=== PATIENT | male | born 1980 | race African-American/Black ===

== ENCOUNTER 2016-09-07 22:21 | Inpatient (IN) ==
[2016-09-08 00:05] LABS: Basophils % 0.5 %; Eosinophils # 0.3 K/mcL (0.0-0.6); Eosinophils % 3.6 %; Hemoglobin 13.4 g/dL (12.9-16.9); Immature Granulocytes % 0.4 % (0-4); Lymphocytes # 1.3 K/mcL (0.6-4.6); Lymphocytes % 15.8 %; Mean Corpuscular HGB Conc 32.7 g/dL (31.6-35.5); Mean Corpuscular Hemoglobin 28.8 pg (28.0-33.3); Mean Corpuscular Volume 88.2 fL (83.0-100.0); Mean Platelet Volume 9.7 fL (9.4-12.4); Monocytes # 0.9 K/mcL (0.0-1.3); Monocytes % 11.2 %; Neutrophils # 5.5 K/mcL (1.6-8.9); Platelet Count 204 K/mcL (140-400); Red Blood Count 4.65 M/mcL (4.19-5.50); Red Cell Distribution Width 12.2 % (11.5-14.5); Segmented Neutrophils % 68.5 %
[2016-09-08 00:13] LABS: INR 1.1; Prothrombin Time 11.9 Seconds (9.4-12.1)
[2016-09-08 00:28] LABS: Alanine Aminotransferase 33 Units/L (0-55); Albumin 3.5 g/dL (3.5-5.0); Albumin/Globulin Ratio 0.9 (1.1-2.2); Alkaline Phosphatase 78 Units/L (38-126); Aspartate Amino Transferase 22 Units/L (5-34); BUN/Creatinine Ratio 14 (6-26); Bilirubin,Total 0.6 mg/dL (0.2-1.2); Blood Urea Nitrogen 15 mg/dL (8-26); Calcium 9.5 mg/dL (8.6-10.8); Carbon Dioxide 28 mEq/L (19-29); Chloride 104 mEq/L (98-109); Globulin 3.7 g/dL (2.4-3.5); Glucose 93 mg/dL (70-99); Osmolality,Calculated 291 (280-300); Potassium 3.6 mEq/L (3.5-4.5); Sodium 140 mEq/L (136-145); Total Protein 7.2 g/dL (6.0-8.3); eGFR For African Americans > 60 (> 60); eGFR For Non-African Americans > 60 (> 60)
[2016-09-08] MEDS ORDERED: 0.9 % Sodium Chloride 1,000 ML IVC ONE (01:26)
[2016-09-08] MEDS ORDERED: Ipratropium/Albuterol Neb 3 ML IH ONE (01:27)
[2016-09-08] MEDS ORDERED: methylPREDNISolone 125 MG/2 ML VIAL IVP ONE (01:27)
[2016-09-08] MEDS ORDERED: GuaiFENesin/Codeine Oral Soln 5 ML UDC PO ONE (01:31)
[2016-09-08] MEDS ORDERED: Ampicillin/Sulbactam 3,000 MG in 0.9 % Sodium Chloride Mini Bag 100 ML IVPB ONE (03:41)
[2016-09-08] MEDS ORDERED: Vancomycin 1,000 MG in D5% in Water 250 ML IVPB ONE (03:41)
--- NOTE | 2016-09-08 03:43 | Emergency Department Note ---
Disposition Clinical Impression: Cough with hemoptysis, Cavitary lesion of lung, Multiple lung nodules on CT, Abnormal EKG Disposition: Admitted As Inpatient Condition: Undetermined General Adult HPI - General Chief complaint: ED Shortness of Breath/Dyspnea Stated complaint: coughing up blood, [place] Time Seen by Provider: 09/08/16 00:38 Source: patient Mode of arrival: private vehicle Limitations: no limitations Nursing Notes Reviewed: Yes Vital Signs Reviewed: Yes - History of Present Illness Pt Subjective Complaint: coughing for a week with hemoptysis Onset (ago): week(s) Location: chest ("soreness in left upper chest last week for a day or two, no pain now") Radiation: non-radiation Pain Severity: moderate (none today) Pain Scale: 0 Quality: aching Consistency: intermittent, now resolved Improves with: nothing Worsens with: other ("coughing hard makes everything hurt") Associated symptoms: Reports: cough, malaise, shortness of breath ("really bad last week, better this week"). Denies: confusion, diaphoresis, fever/chills, headaches, loss of appetite, nausea/vomiting, rash, seizure Treatments Prior to Arrival: none - Related Data Allergies Allergy/AdvReac Type Severity Reaction Status Date / Time bismuth subsalicylate Allergy Hives Verified 09/07/16 23:08 [From Pepto-Bismol] All systems ED: reviewed and negative except as stated. Constitutional: Reports: chills. Denies: fever, weakness, weight change, night sweats Eyes: Denies: eye discharge ENT ED: Denies: ear pain, throat pain, congestion, dysphagia Cardiovascular: Reports: as per HPI, chest pain. Denies: palpitations, dyspnea on exertion, orthopnea, edema, syncope Respiratory: Reports: as per HPI, cough, dyspnea, wheezes, hemoptysis. Denies: stridor, sputum production Gastrointestinal: Denies: abdominal pain, nausea, vomiting Musculoskeletal: Reports: arthralgia ("sometimes my bones ache"). Denies: back pain, neck pain, joint swelling Integumentary: Denies: rash, lesions, pruritus Neurological: Denies: headache, weakness, confusion, abnormal gait, vertigo Endocrine: Reports: fatigue Hematological/Lymphatic: Denies: easy bleeding, easy bruising, lymphadenopathy Past Medical History - Past Medical History Attestation: Yes The following information was validated with the patient. Source: patient Medical history: Reports: asthma, other Surgical history: Reports: non-contributory Psychiatric history: Reports: no psych history - Social History Smoking Status: Former smoker Smokeless Tobacco Status: No Alcohol use: Reports: none, occasionally Drug use: Reports: none Physical Exam - General Limitations: no limitations General appearance: alert, in no apparent distress - Head Head exam: atraumatic, normocephalic, normal inspection - Eye Eye exam: Present: normal appearance, PERRL, EOMI. Absent: scleral icterus, conjunctival injection, periorbital swelling - ENT ENT exam: normal exam, normal oropharynx, mucous membranes moist - Neck Neck exam: Present: normal inspection, full ROM, trachea midline. Absent: tenderness, meningismus, lymphadenopathy - Chest Chest inspection: Present: normal inspection, symmetric chest wall rise. Absent : tenderness - Respiratory Respiratory exam: Present: wheezes. Absent: respiratory distress, stridor, accessory muscle use, prolonged expiratory phase - Expanded Respiratory Exam Location: wheezes: Left, Right, Upper - Cardiovascular Cardiovascular exam: Present: regular rate, normal rhythm, normal heart sounds - Extremities Exam Extremities exam: Present: normal inspection, full ROM, normal capillary refill. Absent: pedal edema - Back Exam Back exam: Present: normal inspection, full ROM. Absent: tenderness - Neurological Exam Neurological exam: Present: alert, oriented X3, CN II-XII intact, normal gait - Psychiatric Psychiatric exam: Present: normal affect, normal mood - Skin Skin exam: Present: warm, dry, intact, normal color Course Course Narrative: Patient presents from home for evaluation ofcoughing up blood for a week. He describes having some left-sided upper chest pain last week and has had a dry hacking cough with episodes of hemoptysis. He states that it feels like it is getting worse, but the pain has not returned. He describes generalized arthralgias and chills but denies fever, vomiting, dizziness, vertigo, palpitations. He has had dyspnea but has a history of asthma. He states that the dyspnea was much worse last week and it too has gotten better. He denies recent foreign travel, or domestic travel, denies recent surgery or prolonged sedentary periods. He denies personal or family history of DVT or PE. 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 He denies recent weight loss or night sweats. On exam, he has a dry hacking bronchospastic cough and did have an episode of hemoptysis during the exam. It was approximately 2 mL's of bloody sputum. He does have expiratory wheezes bilaterally, but no other adventitious breath sounds. He is not tachypneic or tachycardic and has no retractions. Labs were ordered from the triage area per nursing protocol. These show an elevated d-dimer. Given patient's recent chest pain and this lab finding, I consulted with the attending. The patient was seen by Dr. Emre Gonzáles as well. She agrees with the plan to do CTA. Patient received DuoNeb treatments, steroids and cough medicine which helped with his symptoms. His wheezes cleared. His cough was suppressed. EKG shows sinus rhythm with lateral T-wave inversions. We do not have an old EKG to compare this to. Chest x-ray was read by the radiologist as normal. CTA was read as negative for acute pulmonary emboli, positive for multiple pulmonary nodules, including one in the left upper lung which is cavitary. Suspicious for septic emboli. Patient was placed on isolation precautions and a mask was applied. He and his significant other were updated on the findings. Blood cultures were obtained as well as sputum culture. Unasyn and vancomycin were ordered. Hospitalist was paged for admission. We discussed the case and he recommended that the Unasyn be changed to Zosyn. This change was made. However, the patient was already receiving the Unasyn, so this infusion was not stopped. Patient is admitted in stable condition. He is hemodynamically stable. His H&H are normal. He is not tachycardic or hypotensive. Vital Signs Temperature 99.0 F 09/07/16 23:08 Pulse Rate 87 09/07/16 23:08 Respiratory Rate 20 09/07/16 23:08 Blood Pressure 169/91 09/07/16 23:08 O2 Sat by Pulse Oximetry 96 09/07/16 23:08 Temperature 99.0 F 09/07/16 23:08 Pulse Rate 94 09/08/16 03:57 Respiratory Rate 18 09/08/16 03:57 Blood Pressure 162/86 09/08/16 03:57 O2 Sat by Pulse Oximetry 96 09/08/16 03:57 Oxygen Delivery Oxygen Delivery Room Air Medical Decision Making - Medical Records Medical records reviewed: Yes I reviewed the patient's medical records. - Lab Data Lab results reviewed: Yes I reviewed the patient's lab results. Lab results narrative: Laboratory Last Values WBC 8.1 K/mcL (4.3-11.1) 09/07/16 23:57 RBC 4.65 M/mcL (4.19-5.50) 09/07/16 23:57 Hgb 13.4 g/dL (12.9-16.9) 09/07/16 23:57 Hct 41.0 % (37.5-50.1) 09/07/16 23:57 MCV 88.2 fL (83.0-100.0) 09/07/16 23:57 MCH 28.8 pg (28.0-33.3) 09/07/16 23:57 MCHC 32.7 g/dL (31.6-35.5) 09/07/16 23:57 RDW 12.2 % (11.5-14.5) 09/07/16 23:57 Plt Count 204 K/mcL (140-400) 09/07/16 23:57 MPV 9.7 fL (9.4-12.4) 09/07/16 23:57 Immature Gran % 0.4 % (0-4) 09/07/16 23:57 Seg Neutrophils % 68.5 % 09/07/16 23:57 Lymphocytes % 15.8 % 09/07/16 23:57 Monocytes % 11.2 % 09/07/16 23:57 Eosinophils % 3.6 % 09/07/16 23:57 Basophils % 0.5 % 09/07/16 23:57 Neutrophils # 5.5 K/mcL (1.6-8.9) 09/07/16 23:57 Lymphocytes # 1.3 K/mcL (0.6-4.6) 09/07/16 23:57 Monocytes # 0.9 K/mcL (0.0-1.3) 09/07/16 23:57 Eosinophils # 0.3 K/mcL (0.0-0.6) 09/07/16 23:57 Basophils # 0.0 K/mcL (0.0-0.2) 09/07/16 23:57 PT 11.9 Seconds (9.4-12.1) 09/07/16 23:57 INR 1.1 09/07/16 23:57 APTT 28.0 Seconds (26.0-36.0) 09/07/16 23:57 D-Dimer 698 ng/mLFEU (0-500) H 09/07/16 23:57 Sodium 140 mEq/L (136-145) 09/07/16 23:57 Potassium 3.6 mEq/L (3.5-4.5) 09/07/16 23:57 Chloride 104 mEq/L (98-109) 09/07/16 23:57 Carbon Dioxide 28 mEq/L (19-29) 09/07/16 23:57 BUN 15 mg/dL (8-26) 09/07/16 23:57 Creatinine 1.04 mg/dL (0.72-1.25) 09/07/16 23:57 Est GFR ( Amer) > 60 (> 60) 09/07/16 23:57 Est GFR (Non-Af Amer) > 60 (> 60) 09/07/16 23:57 BUN/Creatinine Ratio 14 (6-26) 09/07/16 23:57 Glucose 93 mg/dL (70-99) 09/07/16 23:57 Calculated Osmolality 291 (280-300) 09/07/16 23:57 Calcium 9.5 mg/dL (8.6-10.8) 09/07/16 23:57 Total Bilirubin 0.6 mg/dL (0.2-1.2) 09/07/16 23:57 AST 22 Units/L (5-34) 09/07/16 23:57 ALT 33 Units/L (0-55) 09/07/16 23:57 Alkaline Phosphatase 78 Units/L (38-126) 09/07/16 23:57 Troponin I 0.00 ng/mL (0-0.03) 09/08/16 Unknown Serum Total Protein 7.2 g/dL (6.0-8.3) 09/07/16 23:57 Albumin 3.5 g/dL (3.5-5.0) 09/07/16 23:57 Globulin 3.7 g/dL (2.4-3.5) H 09/07/16 23:57 Albumin/Globulin Ratio 0.9 (1.1-2.2) L 09/07/16 23:57 Result diagrams: 09/07/16 23:57 09/07/16 23:57 Lab Results 09/07/16 09/07/16 09/07/16 Range/Units 23:57 23:57 23:57 WBC 8.1 (4.3-11.1) K/mcL RBC 4.65 (4.19-5.50) M/mcL Hgb 13.4 (12.9-16.9) g/dL Hct 41.0 (37.5-50.1) % MCV 88.2 (83.0-100.0) fL MCH 28.8 (28.0-33.3) pg MCHC 32.7 (31.6-35.5) g/dL RDW 12.2 (11.5-14.5) % Plt Count 204 (140-400) K/mcL MPV 9.7 (9.4-12.4) fL Immature Gran % 0.4 (0-4) % Seg Neutrophils % 68.5 % Lymphocytes % 15.8 % Monocytes % 11.2 % Eosinophils % 3.6 % Basophils % 0.5 % Neutrophils # 5.5 (1.6-8.9) K/mcL Lymphocytes # 1.3 (0.6-4.6) K/mcL Monocytes # 0.9 (0.0-1.3) K/mcL Eosinophils # 0.3 (0.0-0.6) K/mcL Basophils # 0.0 (0.0-0.2) K/mcL PT 11.9 (9.4-12.1) Seconds INR 1.1 APTT 28.0 (26.0-36.0) Seconds D-Dimer 698 H (0-500) ng/mLFEU Sodium 140 (136-145) mEq/L Potassium 3.6 (3.5-4.5) mEq/L Chloride 104 (98-109) mEq/L Carbon Dioxide 28 (19-29) mEq/L BUN 15 (8-26) mg/dL Creatinine 1.04 (0.72-1.25) mg/dL Est GFR ( Amer) > 60 (> 60) Est GFR (Non-Af Amer) > 60 (> 60) BUN/Creatinine Ratio 14 (6-26) Glucose 93 (70-99) mg/dL Calculated Osmolality 291 (280-300) Calcium 9.5 (8.6-10.8) mg/dL Total Bilirubin 0.6 (0.2-1.2) mg/dL AST 22 (5-34) Units/L ALT 33 (0-55) Units/L Alkaline Phosphatase 78 (38-126) Units/L Serum Total Protein 7.2 (6.0-8.3) g/dL Albumin 3.5 (3.5-5.0) g/dL Globulin 3.7 H (2.4-3.5) g/dL Albumin/Globulin Ratio 0.9 L (1.1-2.2) Urine Color (Yellow) Urine Clarity (Clear) Urine pH (5.0-8.0) pH Units Ur Specific [place] (1.010-1.025) Urine Protein (Neg-Trace) mg/dL Urine Glucose (UA) (Normal) mg/dL Urine Ketones (Negative) mg/dL Urine Blood (Negative) Urine Nitrite (Negative) Urine Bilirubin (Negative) Urine Urobilinogen (Normal) mg/dL Ur Leukocyte Esterase (Negative) Urine Microscopic RBC (0-3) per hpf Urine Microscopic WBC (0-3) per hpf Ur Squamous Epith Cells (None-Few) per lpf Urine Bacteria (None-Few) per hpf Hyaline Casts (None-Few) per lpf Ur Culture Indicated? (NO) Urine Opiates Screen (Myiyxv=431) ng/mL Ur Barbiturates Screen (Pbizqo=999) ng/mL Ur Phencyclidine Scrn (Cutoff=25) ng/mL Ur Amphetamines Screen (Ltesdp=8142) ng/mL U Benzodiazepines Scrn (Gfdfsz=579) ng/mL Urine Cocaine Screen (Cutoff= 300) ng/mL U Marijuana (THC) Screen (Cutoff = 50) ng/mL 09/08/16 09/08/16 Range/Units 04:28 04:28 WBC (4.3-11.1) K/mcL RBC (4.19-5.50) M/mcL Hgb (12.9-16.9) g/dL Hct (37.5-50.1) % MCV (83.0-100.0) fL MCH (28.0-33.3) pg MCHC (31.6-35.5) g/dL RDW (11.5-14.5) % Plt Count (140-400) K/mcL MPV (9.4-12.4) fL Immature Gran % (0-4) % Seg Neutrophils % % Lymphocytes % % Monocytes % % Eosinophils % % Basophils % % Neutrophils # (1.6-8.9) K/mcL Lymphocytes # (0.6-4.6) K/mcL Monocytes # (0.0-1.3) K/mcL Eosinophils # (0.0-0.6) K/mcL Basophils # (0.0-0.2) K/mcL PT (9.4-12.1) Seconds INR APTT (26.0-36.0) Seconds D-Dimer (0-500) ng/mLFEU Sodium (136-145) mEq/L Potassium (3.5-4.5) mEq/L Chloride (98-109) mEq/L Carbon Dioxide (19-29) mEq/L BUN (8-26) mg/dL Creatinine (0.72-1.25) mg/dL Est GFR ( Amer) (> 60) Est GFR (Non-Af Amer) (> 60) BUN/Creatinine Ratio (6-26) Glucose (70-99) mg/dL Calculated Osmolality (280-300) Calcium (8.6-10.8) mg/dL Total Bilirubin (0.2-1.2) mg/dL AST (5-34) Units/L ALT (0-55) Units/L Alkaline Phosphatase (38-126) Units/L Serum Total Protein (6.0-8.3) g/dL Albumin (3.5-5.0) g/dL Globulin (2.4-3.5) g/dL Albumin/Globulin Ratio (1.1-2.2) Urine Color Yellow (Yellow) Urine Clarity Cloudy A (Clear) Urine pH 6.0 (5.0-8.0) pH Units Ur Specific [place] 1.028 H (1.010-1.025) Urine Protein Negative (Neg-Trace) mg/dL Urine Glucose (UA) Normal (Normal) mg/dL Urine Ketones Negative (Negative) mg/dL Urine Blood Negative (Negative) Urine Nitrite Negative (Negative) Urine Bilirubin Negative (Negative) Urine Urobilinogen Normal (Normal) mg/dL Ur Leukocyte Esterase Moderate H (Negative) Urine Microscopic RBC 0-3 (0-3) per hpf Urine Microscopic WBC 30-50 H (0-3) per hpf Ur Squamous Epith Cells Many H (None-Few) per lpf Urine Bacteria None Seen (None-Few) per hpf Hyaline Casts Few (None-Few) per lpf Ur Culture Indicated? YES A (NO) Urine Opiates Screen Negative (Arzlih=260) ng/mL Ur Barbiturates Screen Negative (Otwxxg=020) ng/mL Ur Phencyclidine Scrn Negative (Cutoff=25) ng/mL Ur Amphetamines Screen Negative (Jnuyip=7905) ng/mL U Benzodiazepines Scrn Negative (Khgvpx=067) ng/mL Urine Cocaine Screen Negative (Cutoff= 300) ng/mL U Marijuana (THC) Screen Negative (Cutoff = 50) ng/mL - Radiology Data Radiology results reviewed: Yes I reviewed the patient's radiology results. Chest X-Ray 09/07/16 23:12 IMPRESSION: No acute cardiopulmonary disease. D/ / Michael Dunn MD / Michael Dunn MD Interpreting Provider: Michael Dunn MD Chest CTA 09/08/16 01:27 IMPRESSION: No evidence of an acute pulmonary embolus. There are multiple bilateral pulmonary nodules most of which are small in a peripheral/subpleural distribution. The largest in the left upper lobe measures 2.2 cm with central cavitation consistent with lung abscess. Septic emboli are suspected. Clinical correlation and follow-up cardiac echo may be helpful. D/ / Ortega Ngo MD / Ortega Ngo MD Interpreting Provider: Ortega Ngo MD - EKG Data EKG #1 EKG shows normal: sinus rhythm Rate: normal Rhythm: NSR [place]/QRS: normal Voltage: increased voltage throughout, c/w LVH T wave inversions noted in: v4, v5, v6 When compared to previous EKG there are: previous EKG unavailable Interpretation: other (Lateral t-wave inversions)
[2016-09-08] MEDS ORDERED: Piperacillin/Tazobactam 4.5 GM in D5% in Water (Mini-Bag+) 100 ML IVPB ONE (04:23)
[2016-09-08 04:40] LABS: Bilirubin,Urine Negative (Negative); Blood,Urine Negative (Negative); Clarity,Urine Cloudy (Clear); Color,Urine Yellow (Yellow); Glucose,Urine (UA) Normal (Normal); Ketones,Urine Negative (Negative); Leukocyte Esterase,Urine Moderate (Negative); Nitrite,Urine Negative (Negative); Protein,Urine Negative (Neg-Trace); Specific Gravity,Urine 1.028 (1.010-1.025); Urobilinogen,Urine Normal (Normal)
[2016-09-08 04:42] LABS: Bacteria,Urine None Seen per hpf (None-Few); Hyaline Casts,Urine Few per lpf (None-Few); RBC,Urine 0-3 per hpf (0-3); Squamous Epithelial Cell,Urine Many per lpf (None-Few); WBC,Urine 30-50 per hpf (0-3)
[2016-09-08 04:48] LABS: Amphetamine Screen,Urine Negative ng/mL (Cutoff=1000); Barbiturate Screen,Urine Negative ng/mL (Cutoff=200); Benzodiazepines Screen,Urine Negative ng/mL (Cutoff=200); Cannabinoid Screen,Urine Negative ng/mL (Cutoff = 50); Cocaine Screen,Urine Negative ng/mL (Cutoff= 300); Opiate Screen,Urine Negative ng/mL (Cutoff=300); Phencyclidine Screen,Urine Negative ng/mL (Cutoff=25)
[2016-09-08] MEDS ORDERED: Acetaminophen 325 MG TABLET PO PRN (08:54)
[2016-09-08] MEDS ORDERED: Naloxone 0.4 MG/ML INJ IVP PRN (08:54)
[2016-09-08] MEDS ORDERED: *HR* HYDROcodone/Acet 5/325 mg TABLET PO PRN (08:54)
[2016-09-08] MEDS ORDERED: Ondansetron 4 MG/2 ML VIAL IVP PRN (08:54)
--- NOTE | 2016-09-08 09:25 | Internal Med History&Physical ---
Date of Encounter: 09/08/16 Time of Encounter: 08:00 Assessment and Plan (1) Acute dyspnea Current visit: Yes Status: Acute plans as in cough with hemoptysis (2) Cough with hemoptysis Current visit: Yes Status: Acute Mr. Rodriguez is a 36 year old male with past medical history of asthma and esophageal ulcers who was doing well until 2 weeks ago when he developed progressive shortness of breath with associated hemoptysis and left-sided pleuritic chest pain. He has at least coughs bright red blood 4 times a day. He also noticed joint pain in his shoulders and elbows, worse in the right. No joint swelling, no fever, no chills, no night sweats, no skin rash, no bleeding. Initially, he thought it was his asthma flaring up so he used his inhalers more often and took steroids. His symptoms progressed and he came to our ED. In our ED, patient was hemodynamically stable. He received IV Solu- Medrol, Zosyn, 1 L normal saline, and Vancomycin. CTA of chest shows multiple bilateral pulmonary nodules, largest in the left upper lobe measures 2.2 cm with central cavitation. UDS was negative. UA positive for WBC and LE. 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 He denies any IV drug use, he has states that he only smoked marihuana about 10 years ago. No recent travel. His boss came from [place] a few weeks ago and had upper respiratory symptoms for only 3 days. No known exposure to Tuberculosis. He was incarcerated 15 years ago for only 3 days. He has multiple tattoos but no recent new ones. His mother has heart problems. No family history of autoimmune disease. r/o pulmonary TB. Consult ID and pulmonology services. Check AFB smear and culture, fungal sputum culture, legionella, JEOVANNY, HIV, ANCA, RPR, hepatitis, aspergillus and echocardiogram. Continue IV Zosyn and Vancomycin. NPO after midnight for possible bronchoscopy. (3) Cavitary lesion of lung Current visit: Yes Status: Acute plan as acute dyspnea (4) Multiple lung nodules on CT Current visit: Yes Status: Acute plan as above Internal Medicine - H&P: HPI Chief complaint: Shortness of breath and hemoptysis for the past 2 weeks. Admitted From: Home History of present illness: Mr. Rodriguez is a 36 year old male with past medical history of asthma and esophageal ulcers who was doing well until 2 weeks ago when he developed progressive shortness of breath with associated hemoptysis and left-sided pleuritic chest pain. He has at least coughs bright red blood 4 times a day. He also noticed joint pain in his shoulders and elbows, worse in the right. No joint swelling, no fever, no chills, no night sweats, no skin rash, no other bleeding source. He had non-bloody diarrhea for 3 days when all his symptoms started. Initially, he thought it was his asthma flaring up so he used his inhalers more often and took steroids. His symptoms progressed and he came to our ED. CTA of chest shows no multiple bilateral pulmonary nodules, largest in the left upper lobe measures 2.2 cm with central cavitation. 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 He denies any IV drug use, he has states that he only smoked marihuana about 10 years ago. No recent travel. His boss came from [facility] [place] a few weeks ago and had upper respiratory symptoms for only 3 days. No known exposure to Tuberculosis. He has multiple tattoos but no recent new ones. His mother has heart problems. No family history of autoimmune disease. Past Med Surg Social Fam HX - Past Medical History Medical history: asthma, GERD, other Psychiatric history: no psych history - Past Surgical History Surgical History: non-contributory - Social History Smoking Status: Former smoker Packs per day: 3 Smokeless Tobacco Status: No Alcohol use: occasionally Drug use: none Internal Medicine - H&P: Meds Albuterol Sulfate [Albuterol Inhaler] 2 puff PO Q4-6H PRN 09/08/16 [History] Budesonide/Formoterol 160/4.5 [Symbicort 160/4.5] 2 puff IH BID 09/08/16 [ History] Loratadine [Allergy Relief] 10 mg PO DAILY 09/08/16 [History] Omeprazole [PriLOSEC] 20 mg PO DAILY 09/08/16 [History] Allergies bismuth subsalicylate [From Pepto-Bismol] Allergy (Verified 09/08/16 11:10) Hives All Systems PM: A 10-system review of systems was performed and is negative for pertinent findings except as documented above in the HPI. - Constitutional Constitutional: fatigue, malaise, no chills, no excessive sweating, no fever(s) , no lethargy, no night sweats, no weight gain, no weight loss - EENT Eyes: change in vision (patient is color blind), no blurry vision, no dry eye, no floaters, no pain, no photophobia Ears: no decreased hearing, no ear discharge, no ear pain, no tinnitus Nose, mouth and throat: no dysphagia, no epistaxis, no lip swelling, no mouth lesions, no nasal congestion, no nasal discharge, no odynophagia - Cardiovascular Cardiovascular ROS IM: as per HPI - Respiratory Respiratory: as per HPI - Gastrointestinal Gastrointestinal: no abdominal pain, no constipation, no diarrhea, no dyspepsia , no dysphagia, no heartburn, no hematemesis, no nausea, no odynophagia, no vomiting - Genitourinary Genitourinary ROS male: no hematuria, no nocturia - Neurological Neurological ROS: no abnormal gait, no abnormal speech, no behavioral changes, no confusion, no dizziness, no focal weakness, no frequent falls, no headache(s) , no lack of coordination, no loss of vision, no memory loss - Psychiatric Psychiatric: no anxiety, no confusion, no depression, no homicidal ideation, no panic attacks, no suicidal ideation, no visual hallucinations - Hematologic/Lymphatic Hematologic/Lymphatic: no easy bleeding, no easy bruising, no lymphadenopathy - Allergic/Immunologic Allergic/Immunologic: no tongue swelling, no throat swelling, no itchy eyes, no uticaria - Constitutional Vitals: Temp Pulse Resp BP Pulse Ox 99.0 F 95 28 124/87 95 09/08/16 06:39 09/08/16 06:39 09/08/16 06:39 09/08/16 06:39 09/08/16 06:39 General appearance: Present: cooperative, A&O X 3, pleasant, no acute distress, answers questions appropriately - Respiratory Respiratory exam: Present: CTAB - Cardiovascular Cardiovascular exam: Present: RRR - GI/Abdominal GI/Abdominal exam: Present: soft. Absent: distended, normal bowel sounds, tenderness - Extremities Exam Extremities exam: Absent: pedal edema - Back Exam Back exam: Absent: CVA tenderness (L), CVA tenderness (R) - Neurological Exam Neurological exam: Present: alert, oriented X3, no focal deficits, strengths equal and symetr throughout. Absent: pronater drift, facial droop, speech deficit - Skin Skin exam: Absent: diaphoretic, intact, rash Internal Med - H&P Results - Labs CBC & Chem 7: 09/07/16 23:57 09/08/16 10:41 Labs: Cardiac Enzymes 09/08/16 Range/Units Unknown Troponin I 0.00 (0-0.03) ng/mL
[2016-09-08] MEDS ORDERED: GuaiFENesin/Codeine Oral Soln 5 ML UDC PO PRN (09:38)
[2016-09-08] MEDS ORDERED: Vancomycin 1 EACH in D5% in Water 250 ML IVPB SCH (10:00)
[2016-09-08 11:55] LABS: BUN/Creatinine Ratio 15 (6-26); Blood Urea Nitrogen 13 mg/dL (8-26); eGFR For African Americans > 60 (> 60); eGFR For Non-African Americans > 60 (> 60)
[2016-09-08] MEDS ORDERED: Aminoglycoside Consult 1 EACH MC ONE (12:00)
--- NOTE | 2016-09-08 12:55 | Infectious Disease Consult ---
Date of Encounter: 09/08/16 Time of Encounter: 11:30 Assessment and Plan (1) Cavitary lesion of lung Status: Acute Assessment and plan: CTA of the chest completed 09/07/16 shows a 2.2cm SHAKIRA nodule with cavitation consistent with lung abscess suspicious of septic emboli. Etiology unclear. The patient has no evidence of infectious source of septic emboli. Consider additional etiologies of the cavitary lung lesion. TB low on differential, but given clinical picture, will need to rule out. The patient has no exposure history that he is aware of. He spent a few nights in shelter 15 years ago, but has never been incarcerated otherwise. Send sputum for AFB x 3. Place TBST now and read at 48 hours. Continue Airborne Isolation until then. Check ESR and CRP. Check HIV status. Check JEOVANNY, ANCA. Consider rheumatology consult if abnormal. Check sputum culture. Consult pulmonary. Check Quantiferon. The patient has no sepsis criteria. Hold antibiotics until seen by pulmonary for possible bronch. If patient spikes a fever or begins to have sepsis criteria, re-start antibiotics at that time. (2) Cough with hemoptysis Status: Acute Assessment and plan: Likely secondary to cavitary lung lesion. Workup as above. Continue supportive care as outlined by the primary team. (3) Multiple lung nodules on CT Status: Acute Assessment and plan: CT scan shows multiple bilateral pulmonary nodules most of which are small in a peripheral subpleural distribution. Consult pulmonology. (4) Acute dyspnea Status: Acute Infectious Disease HPI - Data of Consult Patient: new to practice Consult date: 09/08/16 Requesting Physician: Rober Graves MD Primary Care Provider: Rosa Gifford - Consult Narrative Reason for consult: Cavitary Lung Lesion History of present illness: Mr. Rodriguez is a 36 year old male with a past medical history of asthma, GERD, and esophageal ulcers. He was admitted to the hospital 09/07/16 for hemoptysis and cavitary lung lesion. We are consulted 09/08/16 for further evaluation and treatment recommendations regarding cavitary lung lesion. Patient's a 36-year-old mouth past medical history as stated above. The patient reports that he had 7 onset shortness of breath with hemoptysis that started approximately 2 weeks ago. He states that he also noticed bilateral shoulder and bilateral elbow arthralgias associated with the shortness of breath. He states the symptoms have been persistent since onset and his insisted he come to the emergency department today. Upon arrival, patient is afebrile he is hemodynamically stable. Laboratory studies reveal a normal white blood cell count. D-dimer was elevated at 698. A chest x-ray was negative. CTA of the chest was negative for PE, but did show multiple bilateral pulmonary nodules most of which are small and a peripheral subpleural distribution. There is also noted to be a 2.2 cm nodule in the left upper lobe with central cavitation consistent with lung abscess with septic emboli suspected. Blood cultures were drawn 2 sets are currently pending. The patient was started on empiric IV vancomycin and IV Zosyn. We have been asked to evaluate and make further recommendations. During my exam today, the patient endorses a history as stated above. He reports that the shortness of breath was acute in onset and has been persistent since then. He reports he's been coughing up a moderate amount of chad red blood intermittently since onset. He reports some left-sided chest pain that is reproducible and is worse with cough, deep inspiration, and palpation of the chest wall. He denies any fevers or chills or shivers. He reports intermittent headaches to the top of his head, but denies any neck pain or stiffness. He reports chronic sinus congestion but denies any discharge, earache, or sore throat. He reports the shortness of breath is at rest and worse with exertion. He reports that the cough is dry throughout the day and he coughs up bright red blood 4-5 times per day. He denies any nausea, vomiting, diarrhea, or constipation. He does report that his weight has been fluctuating with a couple pounds over the course of the past few months, but he is not been losing weight intentionally. He states his appetite is been okay. He denies any urinary complaints. He denies pain in any of the extremities except as previously mentioned. He is any known tick bites or mosquito bites. He denies being around anybody that has been sick. He denies any rashes or skin lesions. He does report intermittent floaters in his eyes, but denies any eye pain or discharge. He denies any weakness or dizziness. He denies any joint redness, warmth, or swelling. He denies any known lymphadenopathy. She lives at home with his and children. He works in a [employer] here in [place]. He denies any recent travel. He denies any tobacco or drug use currently. He reports that he drinks alcohol occasionally. He denies any recent known sick contacts. CC: Rober Graves MD Past Med Surg Social Fam HX - Past Medical History Attestation: Yes The following information was validated with the patient. Source: patient, old records reviewed, nursing notes reviewed Medical history: asthma, GERD, other (Esophageal ulcers) Psychiatric history: no psych history - Past Surgical History Surgical History: no surgical history - Social History Smoking Status: Former smoker Packs per day: 3 Quit 15 years ago Smokeless Tobacco Status: No Alcohol use: occasionally Drug use: none Occupational status: employed Current living situation: Home - Independent Activity Level: Independent ambulation Recent Out of Country Travel Within the Last 8 Weeks: No Exposure or Possible Exposure to Illness During Travel: No Infectious Disease-CN:Meds Albuterol Sulfate [Albuterol Inhaler] 2 puff PO Q4-6H PRN 09/08/16 [History] Budesonide/Formoterol 160/4.5 [Symbicort 160/4.5] 2 puff IH BID 09/08/16 [ History] Loratadine [Allergy Relief] 10 mg PO DAILY 09/08/16 [History] Omeprazole [PriLOSEC] 20 mg PO DAILY 09/08/16 [History] Allergies bismuth subsalicylate [From Pepto-Bismol] Allergy (Verified 09/08/16 11:10) Hives All systems: reviewed and no additional remarkable complaints except as stated Exam - Constitutional Vitals: Temp Pulse Resp BP Pulse Ox 99.0 F 95 28 124/87 95 09/08/16 06:39 09/08/16 06:39 09/08/16 06:39 09/08/16 06:39 09/08/16 06:39 General appearance: average body habitus, cooperative, no acute distress - Head Head exam: Present: atraumatic, normal inspection, normocephalic - Eye Eye exam: Present: EOMI, normal appearance, PERRL Pupils: Present: normal accommodation Additional comments: No subconjunctival hemorrhage noted. - ENT ENT exam: Present: mucous membranes moist - Neck Neck exam: Present: full ROM, normal inspection, tenderness ( Sternocleidomastoid muscle bilaterally). Absent: lymphadenopathy - Respiratory Respiratory exam: Present: CTAB. Absent: rales, respiratory distress, rhonchi, wheezes Additional comments: Chest wall tenderness noted to the left chest wall. - Cardiovascular Cardiovascular exam: Present: RRR, +S1, +S2 - GI/Abdominal GI/Abdominal exam: Present: normal bowel sounds, soft, tenderness (Generalized muscle tenderness). Absent: distended - Rectal Rectal exam: Present: deferred - Extremities Exam Extremities exam: Present: normal inspection. Absent: joint swelling, pedal edema, tenderness Additional comments: No endocarditis stigmata noted. - Back Exam Back exam: Present: normal inspection. Absent: paraspinal tenderness, vertebral tenderness - Neurological Exam Neurological exam: Present: alert, oriented X3, no focal deficits - Psychiatric Psychiatric exam: Present: normal affect, normal mood - Skin Skin exam: Present: dry, intact, normal color, warm Infectious Disease CN: Results - Labs CBC & Chem 7: 09/09/16 04:55 09/09/16 04:55 Cultures: Cultures 09/08/16 06:45 Sputum Culture - Final Sputum Consult Discharge Plan - Plan Referrals: Rosa Gifford MD [Primary Care Provider] - 09/18/16 1:15 pm - Attending Attestation I examined this patient and my medical decision-making was reviewed with the [employer]/PA/Advanced Practice Nurse/Resident Physician. I agree with the documented findings, disposition and treatment plan as described except to the extent set forth below. This is an addendum to original report dictated by Shayy Ness CNP. Please refer to Luis Angel augustine for full detail. Patient's a 36-year-old mouth past medical history as stated above. The patient reports that he had 7 onset shortness of breath with hemoptysis that started approximately 2 weeks ago. He states that he also noticed bilateral shoulder and bilateral elbow arthralgias associated with the shortness of breath. Patient was admitted for further evaluation. Patient was noted to have normal vital signs, normal WBC count, elevated d-dimer at 628. Chest x-ray was obtained was negative. CTA of the chest was negative for PE but showed multiple bilateral pulmonary nodules which are small with peripheral subpleural distribution. He was also noted to be at 2.2 similar nodule in the left upper lobe with central cavitation consistent with lung abscess with septic emboli. Patient was started on broad-spectrum antibiotics to us evaluate the patient and make further recommendation. Further evaluation and extensive history and physical exam patient does not appear to have an infectious etiology for his symptoms. No signs of endocarditis no exposure history to speak up. I am concerned for noninfectious etiology. Patient is hemodynamically stable and no signs of sepsis unwilling to stop the antibiotics and observe. Well check a battery of tests for autoimmune disease. Well ask pulmonary to evaluate and hopefully do bronchoscopy. Continue to follow closely. Monitor labs and for drug toxicity. Get blood cultures 2 if temperature is over 100 Fahrenheit.
[2016-09-08] MEDS: Pantoprazole 40 MG VIAL IVP SCH (13:13)
[2016-09-08] MEDS ORDERED: Piperacillin/Tazobactam 3.375 GM in D5% in Water (Mini-Bag+) 100 ML IVPB SCH (16:00)
[2016-09-08] MEDS ORDERED: Tuberculin Skin Test (PPD) 5 TUB/0.1 ML VIAL ID ONE (16:07)
--- NOTE | 2016-09-08 16:19 | Pulmonology Consult Note ---
Date of Encounter: 09/08/16 Time of Encounter: 16:19 Assessment and Plan (1) Cavitary lesion of lung Current Visit: Yes Status: Acute 36-year-old -[place] gentleman with long-standing asthma presenting with minor hemoptysis secondary to cavitary lung lesion of unclear etiology. Overall suspect inflammatory cause such as possible vasculitis cannot exclude Dunia's granulomatosis (churg gamal considered but given prior history of asthma but usually does not cavitate) which can present with b/l or even possibility of rheumatoid arthritis. Additional and positive concerns would be infectious in nature TB is a differential of the think this is very low patient really does not have any risk factors I would be more inclined to favor invasive pulmonary fungal infection such as histoplasmosis > blastomycosis or much less likely less likely aspergillosis. Certainly some exposure to rapid growing nontuberculous mycobacterium infection is possible but also considered less likely cryptococcal infections and rare instances can present with large cavitary lesion such as staph or mention but would be more consistent with bilateral pulmonary nodules which he does have. I did not see a strong case to be made for septic emboli from bloodstream infection but workup would need to be done to undertake this thus far a negative TTE reinforces my suspicion that this is not bacterial bloodstream infection with septic and emboli. Although extremely unlikely possibility of primary lung malignancy is in consideration. Recs: -Agree with ID consult and recs for Blood cultures sputum including Fungal smear and AFB x 3 and remain in airborne precautions until AFB negative at least x 2 -Agree with ppd -Agree with ID that no need to pursue empiric antimicrobials pending w/u as patient does not appear septic -Send Coags if not sent. -I do not see need to pursue LIBORIO at present but will evaluate based upon clinical course -Sent fungal and basic inflammatory serologies (JEOVANNY, ANCA, RF, aCCP, CRP, ESR) along with urinary histo antigen, beta d glucan and galactomanan -Check IgE level -Cont albuterol nebs every 2-4 hours add cough suppression agent and restart home symbicort -quantify amount of hemoptysis with bedside basin -NPO at [facility] for Bronch (or once AFB cleared) -Mechanical DVT prophylaxis We will follow closely. (2) Moderate persistent asthma Current Visit: Yes Status: Acute Qualifiers: Asthma complication type: uncomplicated Qualified Code(s): J45.40 - Moderate persistent asthma, uncomplicated (3) Cough with hemoptysis Current Visit: Yes Status: Acute (4) Multiple lung nodules on CT Current Visit: Yes Status: Acute History of Present Illness Consult date: 09/08/16 Requesting physician: Vickie Moore Reason for consult: abnormal CXR/CT Chief complaint: Coughing up Blood History of present illness: This is a very pleasant 36-year-old gentleman who presented to the emergency department for hemoptysis that started approximately 2 weeks ago. Patient was noted to have shortness of breath in addition and cough he dimer was ordered in the ED and chest x-ray negative chest x-ray and elevated d-dimer prompted CT angiogram which was negative for filling defect but was notable for bilateral pulmonary nodules one of which was a large cavitary lesion in the left upper lobe He has a past medical history notable for at least moderate persistent asthma requiring daily inhaled corticosteroid/long-acting beta agonist.. He is tolerating history of asthma was notable for recurrent need for oral corticosteroids.. He also has endorsed some vague joint pains including in his shoulders elbows and in his wrists that have developed over this time. He denies any notable rash. No recent sick contacts no travel outside of the country he denies any history of incarceration he does not use drugs and this was reinforced by a negative urine tox screen that was done in the emergency department. 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 He is not at a history of recurrent infections or chronic sinusitis although he does have seasonal allergies which are difficult to control. No family history of lung cancer he has self smoked only for a few years from age [age] and has not smoked since. Past Med Surg Social Fam HX - Past Medical History Medical history: asthma, GERD, other Psychiatric history: no psych history - Past Surgical History Surgical History: non-contributory - Social History Smoking Status: Former smoker Packs per day: 3 Smokeless Tobacco Status: No Alcohol use: occasionally Drug use: none Medications and Allergies Albuterol Sulfate [Albuterol Inhaler] 2 puff PO Q4-6H PRN 09/08/16 [History] Budesonide/Formoterol 160/4.5 [Symbicort 160/4.5] 2 puff IH BID 09/08/16 [ History] Loratadine [Allergy Relief] 10 mg PO DAILY 09/08/16 [History] Omeprazole [PriLOSEC] 20 mg PO DAILY 09/08/16 [History] Allergies bismuth subsalicylate [From Pepto-Bismol] Allergy (Verified 09/08/16 11:10) Hives All Systems: A 10-system review of systems was performed and is negative for pertinent findings except as documented above in the HPI. Physical Examination Vital Signs: Vital Signs, Last 4 Hours Pulse Resp BP Pulse Ox 09/08/16 13:27 76 16 145/84 96 General appearance: no acute distress, other (Healthy-appearing) Eyes: nonicteric ENT: oropharynx moist Neck: supple Effort: normal Auscultation: bilateral: clear Cardiovascular: regular rate and rhythm Gastrointestinal: normoactive bowel sounds Integumentary: normal Extremities: no cyanosis, no edema, no clubbing Musculoskeletal: no deformities normal mental status, non-focal exam mood appropriate Results - Laboratory Findings CBC and BMP: 09/07/16 23:57 09/08/16 10:41 PT/INR, D-dimer PT 11.9 Seconds (9.4-12.1) 09/07/16 23:57 D-Dimer 698 ng/mLFEU (0-500) H 09/07/16 23:57 Abnormal lab findings: Abnormal lab results D-Dimer 698 ng/mLFEU (0-500) H 09/07/16 23:57 C-Reactive Protein 34 mg/L (Less than 5) H 09/08/16 10:41 Globulin 3.7 g/dL (2.4-3.5) H 09/07/16 23:57 Albumin/Globulin Ratio 0.9 (1.1-2.2) L 09/07/16 23:57 Urine Clarity Cloudy (Clear) A 09/08/16 04:28 Ur Specific [place] 1.028 (1.010-1.025) H 09/08/16 04:28 Ur Leukocyte Esterase Moderate (Negative) H 09/08/16 04:28 Urine Microscopic WBC 30-50 per hpf (0-3) H 09/08/16 04:28 Ur Squamous Epith Cells Many per lpf (None-Few) H 09/08/16 04:28 Ur Culture Indicated? YES (NO) A 09/08/16 04:28 - Microbiology Findings Microbiology Findings: Microbiology, Last 48 Hours 09/08/16 06:45 Sputum Culture - Final Sputum - Diagnostic Findings Chest x-ray: report reviewed, image reviewed CT scan - chest: report reviewed, image reviewed - Clinical Findings Intake & Output: Intake & Output 09/08/16 09/08/16 09/08/16 07:59 15:59 23:59 Intake Total 100 / 1100 Balance 100 / 1100 Consult Discharge Plan - Plan Referrals: Rosa Gifford MD [Primary Care Provider] -
[2016-09-08] MEDS ORDERED: Vancomycin 1,250 MG in D5% in Water 250 ML IVPB SCH (18:00)
--- NOTE | 2016-09-09 00:06 | Electrocardiograph Report ---
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
[2016-09-09 06:08] LABS: Basophils % 0.4 %; Eosinophils # 0.1 K/mcL (0.0-0.6); Eosinophils % 0.9 %; Hematocrit 39.5 % (37.5-50.1); Immature Granulocytes % 0.8 % (0-4); Lymphocytes # 1.2 K/mcL (0.6-4.6); Lymphocytes % 12.3 %; Mean Corpuscular HGB Conc 32.9 g/dL (31.6-35.5); Mean Corpuscular Hemoglobin 29.6 pg (28.0-33.3); Mean Platelet Volume 10.7 fL (9.4-12.4); Monocytes # 1.1 K/mcL (0.0-1.3); Monocytes % 10.7 %; Neutrophils # 7.4 K/mcL (1.6-8.9); Platelet Count 235 K/mcL (140-400); Red Blood Count 4.39 M/mcL (4.19-5.50); Red Cell Distribution Width 12.3 % (11.5-14.5); Segmented Neutrophils % 74.9 %
[2016-09-09 06:30] LABS: Blood Urea Nitrogen 19 mg/dL (8-26); Carbon Dioxide 25 mEq/L (19-29); Chloride 107 mEq/L (98-109); Cholesterol 210 mg/dL (< 200); Phosphorous 3.8 mg/dL (2.3-4.7); Potassium 3.6 mEq/L (3.5-4.5); Sodium 140 mEq/L (136-145); Triglycerides 132 mg/dL (< 150)
[2016-09-09 07:04] LABS: BUN/Creatinine Ratio 20 (6-26); Calcium 8.9 mg/dL (8.6-10.8); Chol/HDL Ratio 5.1 (0-4.9); Glucose 123 mg/dL (70-99); HDL Cholesterol 41 mg/dL (40-59); LDL Cholesterol,Calculated 143 mg/dL (0-99); Osmolality,Calculated 294 (280-300); eGFR For African Americans > 60 (> 60); eGFR For Non-African Americans > 60 (> 60)
--- NOTE | 2016-09-09 08:02 | Pulmonology Progress Note ---
Date of Encounter: 09/09/16 Time of Encounter: 08:02 Assessment and Plan (1) Cavitary lesion of lung Current Visit: Yes Status: Acute Impression: 1. Cavitary Lung Lesion with b/l Lung Nodules 2. Minor Hemoptysis 3. Bronchial Asthma 4. DVT prophylaxis Recs: 1. R/o Active TB with AFB; One sample collected induced sputum today if needed. No bronch planned until AFB negative. Ok to eat NPO at [place]. Fungal and Inflammatory labs pending; ID following as well. 2. S/t #1 cont cough suppresion; cont to quantify amount of hemoptysis no evidence of coagulopathy and H/H stable 3. Cont ICS/LABA and CALI 4. Recommend Mechanical DVT prophylaxis while in patient. (2) Moderate persistent asthma Current Visit: Yes Status: Acute Qualifiers: Asthma complication type: uncomplicated Qualified Code(s): J45.40 - Moderate persistent asthma, uncomplicated (3) Cough with hemoptysis Current Visit: Yes Status: Acute (4) Multiple lung nodules on CT Current Visit: Yes Status: Acute Subjective Principal diagnosis: Hemoptysis Interval history: Overnight patient says that cough improved significantly and he only had 1 or 2 episodes of blood-tinged sputum production with coarse the morning he is had very little cough. Denies fever overnight no muscle aches today denies nausea vomiting or diarrhea. Subjective dyspnea also improved Objective PUL Vital signs: Last Vital Signs Temp 98.7 F 09/09/16 07:17 Pulse 83 09/09/16 07:17 Resp 15 09/09/16 07:17 BP 127/82 09/09/16 07:17 Pulse Ox 94 09/09/16 07:17 General appearance: no acute distress Eyes: nonicteric ENT: oropharynx moist Auscultation: bilateral: clear Cardiovascular: regular rate and rhythm Gastrointestinal: non-tender Integumentary: normal Extremities: no edema normal mental status Results - Laboratory Findings CBC and BMP: 09/09/16 04:55 09/09/16 04:55 PT/INR, D-dimer PT 11.9 Seconds (9.4-12.1) 09/07/16 23:57 D-Dimer 698 ng/mLFEU (0-500) H 09/07/16 23:57 Abnormal lab findings: Abnormal lab results ESR 53 mm/hr (0-10) H 09/07/16 23:57 D-Dimer 698 ng/mLFEU (0-500) H 09/07/16 23:57 Glucose 123 mg/dL (70-99) H 09/09/16 04:55 C-Reactive Protein 34 mg/L (Less than 5) H 09/08/16 10:41 Globulin 3.7 g/dL (2.4-3.5) H 09/07/16 23:57 Albumin/Globulin Ratio 0.9 (1.1-2.2) L 09/07/16 23:57 Cholesterol 210 mg/dL (< 200) H 09/09/16 04:55 LDL Cholesterol, Calc 143 mg/dL (0-99) H 09/09/16 04:55 Cholesterol/HDL Ratio 5.1 (0-4.9) H 09/09/16 04:55 Urine Clarity Cloudy (Clear) A 09/08/16 04:28 Ur Specific [place] 1.028 (1.010-1.025) H 09/08/16 04:28 Ur Leukocyte Esterase Moderate (Negative) H 09/08/16 04:28 Urine Microscopic WBC 30-50 per hpf (0-3) H 09/08/16 04:28 Ur Squamous Epith Cells Many per lpf (None-Few) H 09/08/16 04:28 Ur Culture Indicated? YES (NO) A 09/08/16 04:28 - Clinical Findings Intake & Output: Intake & Output 09/08/16 09/09/16 09/09/16 23:59 07:59 15:59 Weight 89.9 kg Consult Discharge Plan - Plan Referrals: Rosa Gifford MD [Primary Care Provider] -
[2016-09-09] MEDS ORDERED: Sodium Chloride for inhalation 3 ML VIAL IH ONE (08:04)
[2016-09-09 09:35] LABS: Hepatitis A Antibody IgM Nonreactive (Nonreactive); Hepatitis B Core IgM Nonreactive (Nonreactive); Hepatitis B Surface Antigen Nonreactive (Nonreactive); Hepatitis C Virus Antibody Nonreactive (Nonreactive)
[2016-09-09] MEDS: Loratadine 10 MG TABLET PO SCH (09:48)
[2016-09-09] MEDS: Pantoprazole 40 MG VIAL IVP SCH (09:49)
[2016-09-09] MEDS ORDERED: Sodium Chloride for inhalation 3 ML VIAL ONE (09:59)
--- NOTE | 2016-09-09 10:02 | Infectious Disease Progress No ---
Date of Encounter: 09/09/16 Time of Encounter: 10:00 - Assessment and Plan (1) Cavitary lesion of lung Current Visit: Yes Status: Acute CTA of the chest completed 09/07/16 shows a 2.2cm SHAKIRA nodule with cavitation consistent with lung abscess suspicious of septic emboli. Etiology unclear. The patient has no evidence of infectious source of septic emboli. Consider additional etiologies of the cavitary lung lesion. TB low on differential, but given clinical picture, will need to rule out. The patient has no exposure history that he is aware of. He spent a few nights in [facility]it[facility] 15 years ago, but has never been incarcerated otherwise. Send sputum for AFB x 3 (two sent). TBST placed 09/08/16 at 1850. Can be read at 1850 09/10/16. Continue Airborne Isolation until then, but can discontinue if negative. Pulmonology consulted. Appreciate their input. Plan for bronchoscopy tomorrow. ESR 53, CRP 34. Check HIV status --> pending. Hepatitis profile non-reactive. Check JEOVANNY, ANCA. --> pending. Consider rheumatology consult if abnormal. Check sputum culture.--> pending. Check Quantiferon.--> pending. The patient has no sepsis criteria. Hold antibiotics until after bronchoscopy. If patient spikes a fever or begins to have sepsis criteria, re-start antibiotics at that time. (2) Cough with hemoptysis Current Visit: Yes Status: Acute Improved. The patient reports no hemoptysis today. Likely secondary to cavitary lung lesion. Workup as above. Continue supportive care as outlined by the primary team. (3) Multiple lung nodules on CT Current Visit: Yes Status: Acute CT scan shows multiple bilateral pulmonary nodules most of which are small in a peripheral subpleural distribution. Pulmonology consulted and following. (4) Acute dyspnea Current Visit: Yes Status: Acute Improved, but the patient still has LAST and with prolonged speech. Continue O2 and supportive care. Management per the primary team. - Subjective Interval history: Patient seen and examined with his family at the bedside. Patient states that overall he feels better today. He reports less cough and no hemoptysis today. He denies any fevers, chills, or rigors. Reports some mild left sided pleuritic chest pain and reports dyspnea and worsening cough on exertion. He denies any nausea, vomiting, diarrhea, or constipation. He reports concern that he has not had a BM since Wednesday. He denies urinary complaints. He denies abdominal pain and states his appetite is okay. He reports the pain in his shoulders and elbows has resolved. He denies any oral thrush or skin lesions. Infect Dis PN-Objective Data - Labs CBC & Chem 7: 09/09/16 04:55 09/09/16 04:55 Labs: Laboratory Results - last 24 hr 09/08/16 09/09/16 09/09/16 18:26 04:55 04:55 WBC 9.9 RBC 4.39 Hgb 13.0 Hct 39.5 MCV 90.0 MCH 29.6 MCHC 32.9 RDW 12.3 Plt Count 235 MPV 10.7 Immature Gran % 0.8 Seg Neutrophils % 74.9 Lymphocytes % 12.3 Monocytes % 10.7 Eosinophils % 0.9 Basophils % 0.4 Neutrophils # 7.4 Lymphocytes # 1.2 Monocytes # 1.1 Eosinophils # 0.1 Basophils # 0.0 Sodium 140 Potassium 3.6 Chloride 107 Carbon Dioxide 25 BUN 19 Creatinine 0.93 Est GFR ( Amer) > 60 Est GFR (Non-Af Amer) > 60 BUN/Creatinine Ratio 20 Glucose 123 H Calculated Osmolality 294 Calcium 8.9 Phosphorus 3.8 Magnesium 2.0 Triglycerides 132 Cholesterol 210 H LDL Cholesterol, Calc 143 H VLDL Cholesterol, Calc 26 HDL Cholesterol 41 Cholesterol/HDL Ratio 5.1 H Rheumatoid Factor < 15 Hepatitis A IgM Ab Hep Bs Antigen Hep B Core IgM Ab Hepatitis C Ab Screen 09/09/16 04:55 WBC RBC Hgb Hct MCV MCH MCHC RDW Plt Count MPV Immature Gran % Seg Neutrophils % Lymphocytes % Monocytes % Eosinophils % Basophils % Neutrophils # Lymphocytes # Monocytes # Eosinophils # Basophils # Sodium Potassium Chloride Carbon Dioxide BUN Creatinine Est GFR ( Amer) Est GFR (Non-Af Amer) BUN/Creatinine Ratio Glucose Calculated Osmolality Calcium Phosphorus Magnesium Triglycerides Cholesterol LDL Cholesterol, Calc VLDL Cholesterol, Calc HDL Cholesterol Cholesterol/HDL Ratio Rheumatoid Factor Hepatitis A IgM Ab Nonreactive Hep Bs Antigen Nonreactive Hep B Core IgM Ab Nonreactive Hepatitis C Ab Screen Nonreactive Cultures: Serology 09/09/16 Range/Units 04:55 Hepatitis A IgM Ab Nonreactive (Nonreactive) Hep Bs Antigen Nonreactive (Nonreactive) Hep B Core IgM Ab Nonreactive (Nonreactive) Hepatitis C Ab Screen Nonreactive (Nonreactive) Exam - Constitutional Vitals: Temp Pulse Resp BP Pulse Ox 98.7 F 83 15 127/82 94 09/09/16 07:09/09/16 07:17 09/09/16 07:17 09/09/16 07:17 09/09/16 07:17 General appearance: average body habitus, cooperative, no acute distress - Head Head exam: Present: atraumatic, normal inspection, normocephalic - Eye Eye exam: Present: EOMI, normal appearance, PERRL Pupils: Present: normal accommodation Additional comments: No subconjunctival hemorrhage noted. - ENT ENT exam: Present: mucous membranes moist - Neck Neck exam: Present: normal inspection - Respiratory Respiratory exam: Present: chest wall tenderness (left chest), CTAB. Absent: rales, respiratory distress, rhonchi, wheezes, tachypnea - Cardiovascular Cardiovascular exam: Present: RRR, +S1, +S2 - GI/Abdominal GI/Abdominal exam: Present: normal bowel sounds, soft, tenderness (generalized muscle soreness). Absent: distended - Extremities Exam Extremities exam: Present: normal inspection. Absent: joint swelling, pedal edema, tenderness Additional comments: No endocarditis stigmata noted. - Neurological Exam Neurological exam: Present: alert, oriented X3, no focal deficits - Psychiatric Psychiatric exam: Present: normal affect, normal mood - Skin Skin exam: Present: dry, intact, normal color, warm Consult Discharge Plan - Plan Referrals: Rosa Gifford MD [Primary Care Provider] - 09/18/16 1:15 pm - Attending Attestation I examined this patient and my medical decision-making was reviewed with the BREAKFAST SUPERVISOR/PA/Advanced Practice Nurse/Resident Physician. I agree with the documented findings, disposition and treatment plan as described except to the extent set forth below.
[2016-09-09] MEDS: Budesonide/Formoterol 160/4.5 MDI IH SCH ×2 (10:09→19:58)
[2016-09-09] MEDS: Albuterol 2.5 MG/3 ML NEBULIZER IH PRN (10:09)
[2016-09-09] MEDS ORDERED: *HR* HYDROcodone/Acet 5/325 mg TABLET PO PRN (11:47)
--- NOTE | 2016-09-09 15:19 | Internal Med Progress Note ---
Date of Encounter: 09/09/16 Time of Encounter: 10:15 - Assessment and plan (1) Cavitary lesion of lung Current Visit: Yes Status: Acute Assessment and plan: So far testing has been negative. AFB smear was negative x1. Repeat smear is pending. Plan to do bronchoscopy tomorrow. Pulmonology and infectious diseases following. No acute indications for antibiotics. (2) Acute dyspnea Current Visit: Yes Status: Acute Assessment and plan: Probably related to bronchospasm from asthma. Continue bronchodilators as needed. (3) Cough with hemoptysis Current Visit: Yes Status: Acute Assessment and plan: Due to abnormal cavitary lesion in the lungs along with multiple lung nodules. Component of atelectasis with cough and worsening with deep breaths. We will order incentive spirometry. (4) Moderate persistent asthma Current Visit: Yes Status: Chronic Assessment and plan: Continue bronchodilators as needed Qualifiers: Asthma complication type: uncomplicated Qualified Code(s): J45.40 - Moderate persistent asthma, uncomplicated (5) Multiple lung nodules on CT Current Visit: Yes Status: Acute - Subjective Interval history: Patient continues to have cough and some shortness of breath. Denies any fever chills or night sweats overnight. No hemoptysis. Continues to make clear sputum. - Constitutional Vitals: Temp Pulse Resp BP Pulse Ox 98.6 F 88 16 138/80 95 09/09/16 10:35 09/09/16 10:35 09/09/16 10:35 09/09/16 10:35 09/09/16 10:35 General appearance: Present: cooperative, A&O X 3, pleasant, no acute distress, answers questions appropriately - Respiratory Respiratory exam: Present: prolonged expiratory phase, rhonchi. Absent: accessory muscle use, rales Additional comments: hollow breath sounds in the left upper lobe - Cardiovascular Cardiovascular exam: Present: RRR, +S1, +S2. Absent: diastolic murmur, gallop, rubs, systolic murmur - GI/Abdominal GI/Abdominal exam: Present: normal bowel sounds, soft, no peritoneal signs. Absent: distended, tenderness - Extremities Exam Extremities exam: Present: warm, radial pulses palpable and symetrical. Absent : calf tenderness, cyanotic, pedal edema - Skin Skin exam: Present: dry, intact Internal Medicine: Result - Labs CBC & Chem 7: 09/09/16 04:55 09/09/16 04:55 Labs: Short CBC 09/09/16 Range/Units 04:55 WBC 9.9 (4.3-11.1) K/mcL Hgb 13.0 (12.9-16.9) g/dL Hct 39.5 (37.5-50.1) % Plt Count 235 (140-400) K/mcL Neutrophils # 7.4 (1.6-8.9) K/mcL BMP 09/09/16 04:55 Sodium 140 Potassium 3.6 Chloride 107 Carbon Dioxide 25 BUN 19 Creatinine 0.93 Glucose 123 H Calcium 8.9 - ABG Interpretation ABG results: PT/INR, D-dimer PT 11.9 Seconds (9.4-12.1) 09/07/16 23:57 D-Dimer 698 ng/mLFEU (0-500) H 09/07/16 23:57 Consult Discharge Plan - Plan Referrals: Rosa Gifford MD [Primary Care Provider] - 09/18/16 1:15 pm - Attending Attestation This document has been at least partially created by [email or web address] recognition technology by Dr. Rinaldi. Errors in grammar, wording or other phrases may exist. If errors are found after the documentation is signed, they will be addressed individually in the addendum section of this document when appropriate.
[2016-09-09 21:33] LABS: Adenovirus Not Detected (Not Detect); Bordetella Pertussis Not Detected (Not Detect); Chlamydophila pneumoniae Not Detected (Not Detect); Coronavirus 229E Not Detected (Not Detect); Coronavirus HKU1 Not Detected (Not Detect); Coronavirus NL63 Not Detected (Not Detect); Coronavirus OC43 Not Detected (Not Detect); Human Metapneumovirus Not Detected (Not Detect); Human Rhinovirus/Enterovirus Not Detected (Not Detect); Influenza A Subtype 2009 H1 Not Detected (Not Detect); Influenza A Untypeable Not Detected (Not Detect); Influenza B Not Detected (Not Detect); Mycoplasma pneumoniae Not Detected (Not Detect); Parainfluenza Virus 1 Not Detected (Not Detect); Parainfluenza Virus 2 Not Detected (Not Detect); Parainfluenza Virus 3 Not Detected (Not Detect); Parainfluenza Virus 4 Not Detected (Not Detect); Respiratory Syncytial Virus Not Detected (Not Detect)
[2016-09-09 22:51] LABS: A.galactomannan Ag Index 0.09
--- NOTE | 2016-09-10 06:47 | Pre-Sedation Evaluation ---
Pre-sedation evaluation - Pre-sedation checklist Date of procedure: 09/10/16 Procedure: bronchoscopy Recent Vitals: Last Vital Signs Temp 98.6 F 09/10/16 03:53 Pulse 64 09/10/16 03:53 Resp 16 09/10/16 03:53 BP 127/62 09/10/16 03:53 Pulse Ox 95 09/10/16 03:53 H&P (including ROS) documented in medical record: Yes Previous reaction to sedatives/anesthetics: No Dietary Status: NPO after Midnight Airway Assessment: Patient can open mouth completely, TMJ function normal Dentition: No loose teeth or bridges, full dentition Possible difficult airway: No ASA Classification *see protocol: CLASS II-Mild systemic disease Plan of Care: Pt appropriate candidate for procedure/moderate/conscious sedation , Risks/benefits of procedure/sedation discussed w/ patient/family
--- NOTE | 2016-09-10 06:47 | Pulmonology Progress Note ---
Date of Encounter: 09/10/16 Time of Encounter: 06:47 Assessment and Plan (1) Cavitary lesion of lung Current Visit: Yes Status: Acute Impression: 1. Cavitary Lung Lesion with b/l Lung Nodules 2. Minor Hemoptysis 3. Bronchial Asthma 4. DVT prophylaxis Recs: 1. AFB negative 3 okay to discontinue airborne precautions, I suspect that this is an inflammatory condition (vasculitis) but serology pending this for microbiological workup has been unremarkable including respiratory infectious.. Plan for bronchoscopy today. Appreciate infectious disease evaluation A bronchoscopy is recommended. The procedure , risks, benefits, complications, and expected outcomes have been reviewed. Benefits of diagnosis, as well as risks to include bleeding, infection, pneumothorax which may require surgical intervention, and in a small population. The patient is aware that sometimes test is nondiagnostic. Discussed with patient and agrees to proceed. 2. S/t #1 cont cough suppresion; cont to quantify amount of hemoptysis no evidence of coagulopathy and H/H stable 3. Cont ICS/LABA and CALI 4. Recommend Mechanical DVT prophylaxis while in patient with risk of hemoptysis. (2) Moderate persistent asthma Current Visit: Yes Status: Chronic Qualifiers: Asthma complication type: uncomplicated Qualified Code(s): J45.40 - Moderate persistent asthma, uncomplicated (3) Cough with hemoptysis Current Visit: Yes Status: Acute (4) Multiple lung nodules on CT Current Visit: Yes Status: Acute Subjective Principal diagnosis: Hemoptysis Interval history: Overall clinically stable. Still complaining of left-sided pleuritic chest pain especially. No significant cough or hemoptysis overnight. AFB negative 3 Objective PUL Vital signs: Last Vital Signs Temp 98.6 F 09/10/16 03:53 Pulse 64 09/10/16 03:53 Resp 16 09/10/16 03:53 BP 127/62 09/10/16 03:53 Pulse Ox 95 09/10/16 03:53 General appearance: no acute distress Auscultation: bilateral: clear Cardiovascular: regular rate and rhythm Extremities: no ischemia or petechiae normal mental status, non-focal exam mood appropriate Results - Laboratory Findings CBC and BMP: 09/09/16 04:55 09/09/16 04:55 PT/INR, D-dimer PT 11.9 Seconds (9.4-12.1) 09/07/16 23:57 D-Dimer 698 ng/mLFEU (0-500) H 09/07/16 23:57 Abnormal lab findings: Abnormal lab results ESR 53 mm/hr (0-10) H 09/07/16 23:57 D-Dimer 698 ng/mLFEU (0-500) H 09/07/16 23:57 Glucose 123 mg/dL (70-99) H 09/09/16 04:55 C-Reactive Protein 34 mg/L (Less than 5) H 09/08/16 10:41 Globulin 3.7 g/dL (2.4-3.5) H 09/07/16 23:57 Albumin/Globulin Ratio 0.9 (1.1-2.2) L 09/07/16 23:57 Cholesterol 210 mg/dL (< 200) H 09/09/16 04:55 LDL Cholesterol, Calc 143 mg/dL (0-99) H 09/09/16 04:55 Cholesterol/HDL Ratio 5.1 (0-4.9) H 09/09/16 04:55 Urine Clarity Cloudy (Clear) A 09/08/16 04:28 Ur Specific House 1.028 (1.010-1.025) H 09/08/16 04:28 Ur Leukocyte Esterase Moderate (Negative) H 09/08/16 04:28 Urine Microscopic WBC 30-50 per hpf (0-3) H 09/08/16 04:28 Ur Squamous Epith Cells Many per lpf (None-Few) H 09/08/16 04:28 Ur Culture Indicated? YES (NO) A 09/08/16 04:28 - Microbiology Findings Microbiology Findings: Microbiology, Last 48 Hours 09/09/16 09:30 Acid Fast Stain - Final Sputum 09/09/16 10:40 Acid Fast Stain - Final Sputum 09/08/16 18:26 Cryptococcal Antigen - Final Serum - Clinical Findings Intake & Output: Intake & Output 09/09/16 09/09/16 09/10/16 15:59 23:59 07:59 Intake Total 600 / 600 0 / 0 Output Total 800 / 800 675 / 675 1100 / 1100 Balance -200 / -200 -675 / -675 -1100 / -1100 Weight 87.362 kg Consult Discharge Plan - Plan Referrals: Rosa Gifford MD [Primary Care Provider] - 09/18/16 1:15 pm
[2016-09-10] MEDS: Budesonide/Formoterol 160/4.5 MDI IH SCH ×2 (08:21→20:25)
[2016-09-10] MEDS ORDERED: Tetracaine/Benzocaine/Butamben 200MG/SPRAY (100SPY/BOT) MM ONE (08:31)
[2016-09-10] MEDS ORDERED: *HR* EPINEPHrine 1 MG/10 ML SYRINGE INTRATRACH PRN (08:31)
[2016-09-10] MEDS ORDERED: 0.9 % Sodium Chloride 1,000 ML IVC SCH (08:45)
[2016-09-10] MEDS ORDERED: *HR* Midazolam HCl 5 MG/5 ML VIAL IVP ONE (10:26)
[2016-09-10] MEDS ORDERED: *HR* FentaNYL (PF) 100 MCG/2 ML VIAL ONE (10:27)
[2016-09-10] MEDS ORDERED: Lidocaine Viscous Oral Soln 15 ML SOLUTION ONE (10:27)
[2016-09-10] MEDS ORDERED: Tetracaine/Benzocaine/Butamben 200MG/SPRAY (100SPY/BOT) ONE (10:28)
[2016-09-10] MEDS: *HR* FentaNYL (PF) 100 MCG/2 ML VIAL IVP PRN ×6 (10:51→11:13)
[2016-09-10] MEDS: *HR* Midazolam HCl 5 MG/5 ML VIAL IVP PRN ×5 (10:52→11:04)
[2016-09-10] MEDS: Albuterol 2.5 MG/3 ML NEBULIZER IH PRN ×4 (11:59→23:49)
[2016-09-10] MEDS ORDERED: methylPREDNISolone 125 MG/2 ML VIAL IVP ONE (12:00)
--- NOTE | 2016-09-10 13:33 | Internal Med Progress Note ---
Date of Encounter: 09/10/16 Time of Encounter: 08:40 - Assessment and plan (1) Cavitary lesion of lung Current Visit: Yes Status: Acute Assessment and plan: Bronchoscopy to be done today. Will follow results and pulmonology recommendations. AFB smear negative x2. (2) Acute dyspnea Current Visit: Yes Status: Acute Assessment and plan: Continue bronchodilators as needed. Due to possible underlying vasculitis/ asthma/fungal infection (3) Cough with hemoptysis Current Visit: Yes Status: Acute (4) Moderate persistent asthma Current Visit: Yes Status: Chronic Assessment and plan: Continue bronchodilators. Qualifiers: Asthma complication type: uncomplicated Qualified Code(s): J45.40 - Moderate persistent asthma, uncomplicated (5) Multiple lung nodules on CT Current Visit: Yes Status: Acute - Subjective Interval history: Patient is feeling better. Continues to have cough but no fever chills or night sweats. Shortness of breath is improving. - Constitutional Vitals: Temp Pulse Resp BP Pulse Ox 97.7 F 61 16 101/44 97 09/10/16 12:08 09/10/16 12:08 09/10/16 12:08 09/10/16 12:08 09/10/16 12:08 General appearance: Present: cooperative, A&O X 3, pleasant, no acute distress, answers questions appropriately - Neck Neck exam general surgery: Present: supple, trachea midline. Absent: lymphadenopathy - Respiratory Respiratory exam: Present: CTAB, wheezes (Mild). Absent: accessory muscle use, rales, rhonchi - Cardiovascular Cardiovascular exam: Present: RRR, +S1, +S2. Absent: diastolic murmur, gallop, rubs, systolic murmur - Extremities Exam Extremities exam: Present: warm, radial pulses palpable and symetrical. Absent : calf tenderness, cyanotic, pedal edema Internal Medicine: Result - Labs CBC & Chem 7: 09/09/16 04:55 09/09/16 04:55 - ABG Interpretation ABG results: PT/INR, D-dimer PT 11.9 Seconds (9.4-12.1) 09/07/16 23:57 D-Dimer 698 ng/mLFEU (0-500) H 09/07/16 23:57 - Impressions Impressions Chest X-Ray 09/10/16 00:00 IMPRESSION: Intraprocedural fluoroscopic spot images as above. See separate procedure report for more information. D/ / Nj Taylor MD / Nj Taylor MD Interpreting Provider: Nj Taylor MD Fluoroscopy 09/10/16 00:00 IMPRESSION: Intraprocedural fluoroscopic spot images as above. See separate procedure report for more information. D/ / Nj Taylor MD / Nj Taylor MD Interpreting Provider: Nj Taylor MD Consult Discharge Plan - Plan Referrals: Rosa Gifford MD [Primary Care Provider] - 09/18/16 1:15 pm - Attending Attestation This document has been at least partially created by [employer] recognition technology by Dr. Rinaldi. Errors in grammar, wording or other phrases may exist. If errors are found after the documentation is signed, they will be addressed individually in the addendum section of this document when appropriate.
[2016-09-10 13:41] LABS: Source of Body Fluid LUL BAL
--- NOTE | 2016-09-10 14:18 | Infectious Disease Progress No ---
Date of Encounter: 09/10/16 Time of Encounter: 14:16 - Assessment and Plan (1) Cavitary lesion of lung Current Visit: Yes Status: Acute CTA of the chest completed 09/07/16 shows a 2.2cm SHAKIRA nodule with cavitation consistent with lung abscess suspicious of septic emboli. Etiology unclear. The patient has no evidence of infectious source of septic emboli. Consider additional etiologies of the cavitary lung lesion. TB low on differential, but given clinical picture, will need to rule out. The patient has no exposure history that he is aware of. He spent a few nights in retirement 15 years ago, but has never been incarcerated otherwise. Send sputum for AFB smear x 3 were negative. AFB culture pending x 3. Discontinue airborne isolation. Pulmonology consulted. Appreciate their input. Status post bronchoscopy this morning. Cultures and brushings are pending. ESR 53, CRP 34. Check HIV status --> non-reactive. Hepatitis profile non-reactive. Check JEOVANNY, ANCA. --> pending. Consider rheumatology consult if abnormal. Check sputum culture.-->NURTF. Check Quantiferon.--> pending. Fungal serologies pending. RIP negative. The patient has no sepsis criteria. Continue to hold antibiotics. (2) Cough with hemoptysis Current Visit: Yes Status: Acute Improved. The patient reports no hemoptysis today. Likely secondary to cavitary lung lesion. Workup as above. Continue supportive care as outlined by the primary team. (3) Multiple lung nodules on CT Current Visit: Yes Status: Acute CT scan shows multiple bilateral pulmonary nodules most of which are small in a peripheral subpleural distribution. Pulmonology consulted and following. (4) Acute dyspnea Current Visit: Yes Status: Acute Improved, but the patient still has ALST and with prolonged speech. Continue O2 and supportive care. Management per the primary team. - Subjective Interval history: Patient seen and examined with his family at the bedside. Status post bronchoscopy this morning. Patient states that overall he feels better today. He reports less cough and no hemoptysis today. He denies any fevers, chills, or rigors. Reports some mild left sided pleuritic chest pain and reports dyspnea and worsening cough on exertion. He denies any nausea, vomiting, diarrhea, or constipation. He denies urinary complaints. He denies abdominal pain and states his appetite is okay. He reports the pain in his shoulders and elbows has resolved. He denies any oral thrush or skin lesions. He reports some throat irritation since having the bronch this morning. Infect Dis PN-Objective Data - Labs CBC & Chem 7: 09/09/16 04:55 09/09/16 04:55 Labs: Laboratory Results - last 24 hr 09/09/16 20:00 Chlamy pneumoniae PCR Not Detected Adenovirus (PCR) Not Detected B. pertussis DNA (PCR) Not Detected Coronavirus OC43 (PCR) Not Detected Coronavirus HKU1 (PCR) Not Detected Coronavirus 229E (PCR) Not Detected Coronavirus NL63 (PCR) Not Detected Human Metapneumovirus Not Detected Influenza A (H1) PCR Not Detected Influ A (H1N1/09) PCR Not Detected Influenza A (H3) PCR Not Detected Influenza A Untype (PCR) Not Detected Influenza Type B (PCR) Not Detected M.pneumoniae DNA (PCR) Not Detected Parainfluenza 1 (PCR) Not Detected Parainfluenza 2 (PCR) Not Detected Parainfluenza 3 (PCR) Not Detected Parainfluenza 4 (PCR) Not Detected RSV (PCR) Not Detected Entero/Rhino (PCR) Not Detected Cultures: Cultures 09/09/16 09:30 Acid Fast Stain - Final Sputum 09/09/16 10:40 Acid Fast Stain - Final Sputum 09/08/16 18:26 Cryptococcal Antigen - Final Serum Serology 09/09/16 09/09/16 Range/Units 20:00 04:55 Chlamy pneumoniae PCR Not Detected (Not Detect) Adenovirus (PCR) Not Detected (Not Detect) B. pertussis DNA (PCR) Not Detected (Not Detect) Coronavirus OC43 (PCR) Not Detected (Not Detect) Coronavirus HKU1 (PCR) Not Detected (Not Detect) Coronavirus 229E (PCR) Not Detected (Not Detect) Coronavirus NL63 (PCR) Not Detected (Not Detect) Hepatitis A IgM Ab Nonreactive (Nonreactive) Hep Bs Antigen Nonreactive (Nonreactive) Hep B Core IgM Ab Nonreactive (Nonreactive) Hepatitis C Ab Screen Nonreactive (Nonreactive) Human Metapneumovirus Not Detected (Not Detect) Influenza A (H1) PCR Not Detected (Not Detect) Influ A (H1N1/09) PCR Not Detected (Not Detect) Influenza A (H3) PCR Not Detected (Not Detect) Influenza A Untype (PCR) Not Detected (Not Detect) Influenza Type B (PCR) Not Detected (Not Detect) M.pneumoniae DNA (PCR) Not Detected (Not Detect) Parainfluenza 1 (PCR) Not Detected (Not Detect) Parainfluenza 2 (PCR) Not Detected (Not Detect) Parainfluenza 3 (PCR) Not Detected (Not Detect) Parainfluenza 4 (PCR) Not Detected (Not Detect) RSV (PCR) Not Detected (Not Detect) Entero/Rhino (PCR) Not Detected (Not Detect) - Impressions Impressions Chest X-Ray 09/10/16 00:00 IMPRESSION: Intraprocedural fluoroscopic spot images as above. See separate procedure report for more information. D/ / Nj Taylor MD / Nj Taylor MD Interpreting Provider: Nj Taylor MD Fluoroscopy 09/10/16 00:00 IMPRESSION: Intraprocedural fluoroscopic spot images as above. See separate procedure report for more information. D/ / Nj Taylor MD / Nj Taylor MD Interpreting Provider: Nj Taylor MD Exam - Constitutional Vitals: Temp Pulse Resp BP Pulse Ox 97.7 F 61 16 101/44 97 09/10/16 12:08 09/10/16 12:08 09/10/16 12:08 09/10/16 12:08 09/10/16 12:08 General appearance: average body habitus, cooperative, no acute distress - Head Head exam: Present: atraumatic, normal inspection, normocephalic - Eye Eye exam: Present: EOMI, normal appearance, PERRL Pupils: Present: normal accommodation - ENT ENT exam: Present: mucous membranes moist - Neck Neck exam: Present: normal inspection - Respiratory Respiratory exam: Present: wheezes (fine expiratory wheezes SHAKIRA). Absent: rales , respiratory distress, rhonchi, tachypnea - Cardiovascular Cardiovascular exam: Present: RRR, +S1, +S2 - GI/Abdominal GI/Abdominal exam: Present: normal bowel sounds, soft. Absent: distended, tenderness - Extremities Exam Extremities exam: Present: normal inspection. Absent: joint swelling, pedal edema, tenderness - Neurological Exam Neurological exam: Present: alert, oriented X3, no focal deficits - Psychiatric Psychiatric exam: Present: normal affect, normal mood - Skin Skin exam: Present: dry, intact, normal color, warm Consult Discharge Plan - Plan Referrals: Rosa Gifford MD [Primary Care Provider] - 09/18/16 1:15 pm - Attending Attestation I examined this patient and my medical decision-making was reviewed with the HAM ROLLING MACHINE OPERATOR/PA/Advanced Practice Nurse/Resident Physician. I agree with the documented findings, disposition and treatment plan as described except to the extent set forth below. Feeling all that uncomfortable because of recent bronchoscopy by otherwise feeling great. Family at bedside. No further recommendations.
[2016-09-10] MEDS: Loratadine 10 MG TABLET PO SCH (14:39)
[2016-09-10 15:04] LABS: ANA IgG by ELISA DETECTED (None Detected)
[2016-09-10 17:38] LABS: Appearance of Body Fluid Clear (Clear)
[2016-09-11] MEDS ORDERED: Chloraseptic Spray 177 ML BOTTLE MM PRN (03:27)
[2016-09-11] MEDS: Loratadine 10 MG TABLET PO SCH (07:39)
[2016-09-11 07:59] LABS: Myeloperoxidase Ab 2 AU/mL (0-19); Serine Protease-3 Antibody 18 AU/mL (0-19)
[2016-09-11] MEDS ORDERED: predniSONE 20 MG TABLET PO SCH (09:45)
--- NOTE | 2016-09-11 10:25 | Infectious Disease Progress No ---
Date of Encounter: 09/11/16 Time of Encounter: 10:19 - Assessment and Plan (1) Cavitary lesion of lung Current Visit: Yes Status: Acute CTA of the chest completed 09/07/16 shows a 2.2cm SHAKIRA nodule with cavitation consistent with lung abscess suspicious of septic emboli. Etiology unclear, but unlikely infectious etiology. Sputum for AFB smear x 3 were negative. AFB culture pending x 3. Pulmonology consulted. Appreciate their input. Status post bronchoscopy 09/10/16. Cultures and pathology are pending. Bronch report reviewed. ESR 53, CRP 34. Check HIV status --> non-reactive. Hepatitis profile non-reactive. Check JEOVANNY detected. CCP mildly elevated at 20. Check ANCA. --> pending. Check sputum culture.-->NURTF. Check Quantiferon.--> pending. Aspergillus galactomannan antigen negative. Fungitell and Histoplasma antigen are pending. RIP negative. The patient has no sepsis criteria. Continue to observe off antibiotics. Consider rheumatology consult for further input regarding elevated CCP and JEOVANNY. (2) Cough with hemoptysis Current Visit: Yes Status: Acute Improved. The patient reports no hemoptysis today. Likely secondary to cavitary lung lesion. Workup as above. Continue supportive care as outlined by the primary team. (3) Multiple lung nodules on CT Current Visit: Yes Status: Acute CT scan shows multiple bilateral pulmonary nodules most of which are small in a peripheral subpleural distribution. Pulmonology consulted and following. (4) Acute dyspnea Current Visit: Yes Status: Acute Improved. Currently off O2. Continue O2 and supportive care. Management per the primary team. - Subjective Interval history: Patient seen and examined. No acute events noted overnight. Status post bronchoscopy 09/10/16. Patient states that overall he feels better today. He denies cough or shortness of breath. He states he is requiring fewer breathing treatments through the day. He denies any fevers, chills, or rigors. Reports some mild left sided pleuritic chest pain. He denies any nausea, vomiting, diarrhea, or constipation. He denies urinary complaints. He denies abdominal pain and states his appetite is okay. He reports the pain in his shoulders and elbows has resolved. He denies any oral thrush or skin lesions. Infect Dis PN-Objective Data - Labs CBC & Chem 7: 09/09/16 04:55 09/09/16 04:55 Labs: Laboratory Results - last 24 hr 09/08/16 09/10/16 18:26 13:40 Fluid Source SHAKIRA BAL Fluid Volume Test Not Performed Fluid Appearance Clear Fluid RBC TNP Fld Tot Nucleated Cell TNP Fluid Seg Neutrophil % 95.0 Fld Band Neutrophil % 1.0 Fluid Lymphocytes % 2.0 Fluid Monocytes % Test Not Performed Fluid Eosinophils % Test Not Performed Fluid Basophils % Test Not Performed Fluid Other Cells % 2.0 Cycl Citrul Peptide IgG 20 H Cultures: Cultures 09/10/16 13:40 Respiratory Culture - Preliminary Left Upper Lobe Lung Normal upper respiratory tract chun. No apparent pathogens isolated. 09/10/16 13:40 Gram Stain - Final Left Upper Lobe Lung 09/09/16 09:30 Acid Fast Stain - Final Sputum 09/09/16 10:40 Acid Fast Stain - Final Sputum 09/08/16 18:26 Cryptococcal Antigen - Final Serum Serology 09/10/16 09/09/16 09/09/16 Range/Units 13:40 20:00 04:55 Fluid Source SHAKIRA BAL Fluid Volume Test Not Performed Fluid Appearance Clear (Clear) Fluid RBC TNP Fld Tot Nucleated Cell TNP Fluid Seg Neutrophil % 95.0 % Fld Band Neutrophil % 1.0 % Fluid Lymphocytes % 2.0 % Fluid Monocytes % Test Not Performed Fluid Eosinophils % Test Not Performed Fluid Basophils % Test Not Performed Fluid Other Cells % 2.0 % Chlamy pneumoniae PCR Not Detected (Not Detect) Adenovirus (PCR) Not Detected (Not Detect) B. pertussis DNA (PCR) Not Detected (Not Detect) Coronavirus OC43 (PCR) Not Detected (Not Detect) Coronavirus HKU1 (PCR) Not Detected (Not Detect) Coronavirus 229E (PCR) Not Detected (Not Detect) Coronavirus NL63 (PCR) Not Detected (Not Detect) Hepatitis A IgM Ab Nonreactive (Nonreactive) Hep Bs Antigen Nonreactive (Nonreactive) Hep B Core IgM Ab Nonreactive (Nonreactive) Hepatitis C Ab Screen Nonreactive (Nonreactive) Human Metapneumovirus Not Detected (Not Detect) Influenza A (H1) PCR Not Detected (Not Detect) Influ A (H1N1/09) PCR Not Detected (Not Detect) Influenza A (H3) PCR Not Detected (Not Detect) Influenza A Untype (PCR) Not Detected (Not Detect) Influenza Type B (PCR) Not Detected (Not Detect) M.pneumoniae DNA (PCR) Not Detected (Not Detect) Parainfluenza 1 (PCR) Not Detected (Not Detect) Parainfluenza 2 (PCR) Not Detected (Not Detect) Parainfluenza 3 (PCR) Not Detected (Not Detect) Parainfluenza 4 (PCR) Not Detected (Not Detect) RSV (PCR) Not Detected (Not Detect) Entero/Rhino (PCR) Not Detected (Not Detect) - Impressions Impressions Chest X-Ray 09/10/16 00:00 IMPRESSION: Intraprocedural fluoroscopic spot images as above. See separate procedure report for more information. D/ / Nj Taylor MD / Nj Taylor MD Interpreting Provider: Nj Taylor MD Fluoroscopy 09/10/16 00:00 IMPRESSION: Intraprocedural fluoroscopic spot images as above. See separate procedure report for more information. D/ / Nj Taylor MD / Nj Taylor MD Interpreting Provider: Nj Taylor MD Exam - Constitutional Vitals: Temp Pulse Resp BP Pulse Ox 98.1 F 101 16 146/75 93 09/11/16 07:00 09/11/16 07:00 09/11/16 07:00 09/11/16 07:00 09/11/16 07:00 General appearance: average body habitus, cooperative, no acute distress - Head Head exam: Present: atraumatic, normal inspection, normocephalic - Eye Eye exam: Present: EOMI, normal appearance, PERRL Pupils: Present: normal accommodation - ENT ENT exam: Present: mucous membranes moist - Neck Neck exam: Present: normal inspection - Respiratory Respiratory exam: Present: CTAB. Absent: rales, respiratory distress, rhonchi, wheezes - Cardiovascular Cardiovascular exam: Present: RRR, +S1, +S2 - GI/Abdominal GI/Abdominal exam: Present: normal bowel sounds, soft. Absent: distended, tenderness - Extremities Exam Extremities exam: Present: normal inspection. Absent: joint swelling, pedal edema, tenderness - Back Exam Back exam: Present: normal inspection. Absent: paraspinal tenderness, vertebral tenderness - Neurological Exam Neurological exam: Present: alert, oriented X3, no focal deficits - Psychiatric Psychiatric exam: Present: normal affect, normal mood - Skin Skin exam: Present: dry, intact, normal color, warm Consult Discharge Plan - Plan Referrals: Rosa Gifford MD [Primary Care Provider] - 09/18/16 1:15 pm
--- NOTE | 2016-09-11 10:43 | Rheumatology Consult Note ---
<Geraldo Cifuentes - Last Filed: 09/11/16 15:04> Date of Encounter: 09/11/16 Time of Encounter: 10:00 Rheumatology Assess and Plan (1) Cough with hemoptysis Status: Acute - With multiple bilateral lung nodules including a 2.2 cm cavitary on CTA chest. - Differentials include infectious etiology and pulmonary vasculitis such as EGPA (given his history of asthma and good response to steroid), GPA, MPA - No evidence of PE per CTA chest. - Infectious diseases on board and infectious work-up including TB and HIV are negative so far. - Positive JEOVANNY screen. Negative RF and weak positive CCP. - Negative MPO & PR3. ANCA can be negative in up to 40% of EGPA patients. - Bronchoscopy found normal airway and BAL cytology found no tumor cells. - CT sinus found no sign of sinusitis. - Lung nodule biopsy will be ideal to make diagnosis of pulmonary vasculitis. - Case was discussed with pulmonology and primary team. To cover for vasculitis , will continue prednisone 60 mg PO daily until outpatient rheumatology follow up with Dr. Peacock in 2 weeks after discharge. Patient will also need repeat scan and close follow-up with pulmonology outpatiently. Rheumatology HPI Consult date: 09/11/16 Requesting physician: Dirk Rinaldi Consult reason: Possible vasculitis Chief complaint: hemoptysis History of present illness: Mr. Rodriguez is a 36 year old male with PMH of asthma. Patient presented with complaint of hemoptysis & shortness of breath. CTA chest found multiple bilateral pulmonary nodules with the largest in the left upper lobe measuring 2.2 cm with central cavitation. Patient was admitted on 09/08/16 for further evaluation and management. Bronchoscopy on 09/10/16 found normal airway. Infectious diseases on board and infectious work-up including TB so far is negative. Rheumatology is consulted on 09/11/16 for possible vasculitis. Patient was seen and examined this morning. Patient reports hemoptysis starting 1 & 1/2 weeks ago and it's new onset. It's associated with shortness of breath and left pleuritic chest pain. Patient recalls having 1-day of diarrhea at beginning of onset. Patient also reports bilateral shoulder and elbow arthralgia , which has resolved as his hemoptysis & dyspnea significantly improve since admission. Patient states weight loss of 10 lb over past 1 & 1/2 weeks due to poor appetite. Patient denies fever, chills, night sweat, eye redness or pain, vision change, hearing change, numbness/tingling, focal weakness, dysuria, hematuria, abdominal pain, nausea, vomiting, skin rash/itchiness, easily bleeding/bruise. Patient denies known personal or family history of autoimmune diseases such as lupus or psoriasis. Past Med Surg Social Fam HX - Past Medical History Medical history: asthma, GERD, other (Esophageal ulcers) Psychiatric history: no psych history - Past Surgical History Surgical History: no surgical history - Social History Smoking Status: Former smoker Packs per day: 3 Quit 15 years ago Smokeless Tobacco Status: No Alcohol use: occasionally Drug use: none Medications and Allergies Albuterol Sulfate [Albuterol Inhaler] 2 puff PO Q4-6H PRN 09/08/16 [History] Budesonide/Formoterol 160/4.5 [Symbicort 160/4.5] 2 puff IH BID 09/08/16 [ History] Loratadine [Allergy Relief] 10 mg PO DAILY 09/08/16 [History] Omeprazole [PriLOSEC] 20 mg PO DAILY 09/08/16 [History] predniSONE [PredniSONE] 60 mg PO DAILY #60 tablet 09/11/16 [Rx] Allergies bismuth subsalicylate [From Pepto-Bismol] Allergy (Verified 09/08/16 11:10) Hives All Systems Review: A 10-system review of systems was performed and is negative for pertinent findings except as documented above in the HPI. Review of Systems: Patient denies fever, chills, night sweat, eye redness or pain, vision change, hearing change, numbness/tingling, focal weakness, dysuria, hematuria, abdominal pain, nausea, vomiting, skin rash/itchiness, easily bleeding/bruise. Rheumatology Exam Vital Signs, Last 4 Hours Temp Pulse Resp BP Pulse Ox 09/11/16 07:00 98.1 F 101 16 146/75 93 Exam: General appearance: A&Ox3, NAD, cooperative, answer questions appropriately. Head: NC/AT Eyes: EOMI, PERRL, no eye redness noted. Neck: Supple, trachea midline, no significant cervical lymphoadenopathy noted. Cardiovascular: RRR, S1&S2 noted, no murmurs, radial pulses symmetrical. Lungs: CTAB, no wheezes, rhonchi or rales. Abdomen: soft, non-tender, positive bowel sounds. Extremities: Full ROM, no significant joint swelling or tenderness noted. Skin: No skin rashes or erythema noted. Neuro: CN II-XII grossly intact, no significant focal deficit noted. strength 5 + symmetrically. Rheumatology Results 09/09/16 04:55 09/09/16 04:55 Immunology Rheumatoid Factor < 15 IU/mL (0-29) 09/08/16 18:26 Cycl Citrul Peptide IgG 20 Units (0-19) H 09/08/16 18:26 JEOVANNY Screen DETECTED (None Detected) A 09/08/16 10:41 Myeloperoxidase Ab 2 AU/mL (0-19) 09/08/16 10:41 Serine Protease 3 Ab 18 AU/mL (0-19) 09/08/16 10:41 All other labs normal. Consult Discharge Plan - Plan Instructions: Asthma (DC) Referrals: Rosa Gifford MD [Primary Care Provider] - 09/18/16 1:15 pm Ran Peacock DO [Partnered Physician] - 09/24/16 9:30 am (In 1-2 weeks) Quan Clement MD [Partnered Physician] - 09/28/16 3:45 pm (please follow up as schedule...) Prescriptions: predniSONE [PredniSONE] 60 mg PO DAILY #60 tablet <Ran Peacock - Last Filed: 09/11/16 18:04> Date of Encounter: 09/11/16 Rheumatology HPI History of present illness: Mr. Rodriguez is a 36 year old male All Systems Review: A 10-system review of systems was performed and is negative for pertinent findings except as documented above in the HPI. Rheumatology Results 09/09/16 04:55 09/09/16 04:55 Immunology Rheumatoid Factor < 15 IU/mL (0-29) 09/08/16 18:26 Cycl Citrul Peptide IgG 20 Units (0-19) H 09/08/16 18:26 JEOVANNY Screen DETECTED (None Detected) A 09/08/16 10:41 Myeloperoxidase Ab 2 AU/mL (0-19) 09/08/16 10:41 Serine Protease 3 Ab 18 AU/mL (0-19) 06/06/17 10:41 All other labs normal. - Attending Attestation I examined this patient and my medical decision making was reviewed with the resident physician. I agree with the documented findings, disposition and treatment as described with these exceptions. In summary, patient is a 36 year old male with PMH of asthma who presents with cough and hemoptysis found to have nodules and a 2.2 centrally cavitary lesion. Infectious workup negative thus far including fungal, acid fast, legionella, blood, sputum and urine cultures. BAL cultures negative. PR3 and MPO negative CCP 20, JEOVANNY IF is pending. He has been treated with IV and now oral steroids with improved shortness of breath. Vasculitis remains on the differential though unfortunately unclear as he lacks many other systemic findings; serologies unrevealing. Would recommend covering with prednisone and continue close follow-up for any changes; he will need repeat scan and then possible further workup. Will follow-up in clinic; I discussed case with ID and pulmonary medicine. I discussed with him and his if his continue changes to return to the hospital.
[2016-09-11] MEDS: Budesonide/Formoterol 160/4.5 MDI IH SCH (10:58)
[2016-09-11 11:07] VITALS: BP 137/79
--- NOTE | 2016-09-11 11:09 | Pulmonology Progress Note ---
Date of Encounter: 09/11/16 Time of Encounter: 14:27 Assessment and Plan (1) Cavitary lesion of lung Current Visit: Yes Status: Acute Impression: 1. Cavitary Lung Lesion with b/l Lung Nodules 2. Minor Hemoptysis 3. Bronchial Asthma 4. DVT prophylaxis Recs: 1. Suspect inflammatory process possible vasculitis. Does not appear to have infection and this is also the perception of the infectious disease service. No untoward effects status post bronchoscopy. Could not perform cytology brush because of severity of coughing proximal systems but no airway abnormality that was noted. I have discussed the case with rheumatology and recommend formal consultation. I think we are both in agreement that a trial of oral steroids such as prednisone 60 mg for the next month with repeat CT scan of the chest is the best course of action at this point. Final serologies show negative Anka positive JEOVANNY at present this is of an unclear significance. Malignancy is still the differential however again I think that this is exceedingly unlikely. When discharge patient will need a formal pulmonary referral 2. Resolved 3. Cont ICS/LABA and CALI 4. Encourage ambulation Plan was reviewed with patient and his family they are in agreement with proceeding (2) Moderate persistent asthma Current Visit: Yes Status: Chronic Qualifiers: Qualified Code(s): J45.40 - Moderate persistent asthma, uncomplicated (3) Cough with hemoptysis Current Visit: Yes Status: Acute (4) Multiple lung nodules on CT Current Visit: Yes Status: Acute Subjective Principal diagnosis: Hemoptysis Interval history: Breathing has improved a bit with administration of steroids. No further episodes of hemoptysis he is understandably anxious to go home joined by his family including children at bedside Objective PUL Vital signs: Last Vital Signs Temp 98.6 F 09/11/16 11:00 Pulse 82 09/11/16 11:00 Resp 16 09/11/16 11:00 BP 137/79 09/11/16 11:00 Pulse Ox 95 09/11/16 11:00 General appearance: no acute distress ENT: oropharynx moist Auscultation: bilateral: clear Cardiovascular: regular rate and rhythm Gastrointestinal: normoactive bowel sounds Extremities: no cyanosis, no edema, no clubbing normal mental status, non-focal exam Results - Laboratory Findings CBC and BMP: 09/09/16 04:55 09/09/16 04:55 PT/INR, D-dimer PT 11.9 Seconds (9.4-12.1) 09/07/16 23:57 D-Dimer 698 ng/mLFEU (0-500) H 09/07/16 23:57 Abnormal lab findings: Abnormal lab results ESR 53 mm/hr (0-10) H 09/07/16 23:57 D-Dimer 698 ng/mLFEU (0-500) H 09/07/16 23:57 Glucose 123 mg/dL (70-99) H 09/09/16 04:55 C-Reactive Protein 34 mg/L (Less than 5) H 09/08/16 10:41 Globulin 3.7 g/dL (2.4-3.5) H 09/07/16 23:57 Albumin/Globulin Ratio 0.9 (1.1-2.2) L 09/07/16 23:57 Cholesterol 210 mg/dL (< 200) H 09/09/16 04:55 LDL Cholesterol, Calc 143 mg/dL (0-99) H 09/09/16 04:55 Cholesterol/HDL Ratio 5.1 (0-4.9) H 09/09/16 04:55 Urine Clarity Cloudy (Clear) A 09/08/16 04:28 Ur Specific [place] 1.028 (1.010-1.025) H 09/08/16 04:28 Ur Leukocyte Esterase Moderate (Negative) H 09/08/16 04:28 Urine Microscopic WBC 30-50 per hpf (0-3) H 09/08/16 04:28 Ur Squamous Epith Cells Many per lpf (None-Few) H 09/08/16 04:28 Ur Culture Indicated? YES (NO) A 09/08/16 04:28 Cycl Citrul Peptide IgG 20 Units (0-19) H 09/08/16 18:26 JEOVANNY Screen DETECTED (None Detected) A 09/08/16 10:41 - Microbiology Findings Microbiology Findings: Microbiology, Last 48 Hours 09/10/16 13:40 Respiratory Culture - Preliminary Left Upper Lobe Lung Normal upper respiratory tract chun. No apparent pathogens isolated. 09/10/16 13:40 Gram Stain - Final Left Upper Lobe Lung 09/09/16 09:30 Acid Fast Stain - Final Sputum 09/09/16 10:40 Acid Fast Stain - Final Sputum 09/08/16 18:26 Cryptococcal Antigen - Final Serum - Clinical Findings Intake & Output: Intake & Output 09/10/16 09/11/16 09/11/16 23:59 07:59 15:59 Output Total 950 / 950 400 / 400 Balance -950 / -950 -400 / -400 Weight 87.18 kg Consult Discharge Plan - Plan Instructions: Asthma (DC) Referrals: Rosa Gifford MD [Primary Care Provider] - 09/18/16 1:15 pm
--- NOTE | 2016-09-11 14:29 | Discharge Summary ---
Date of Encounter: 09/11/16 Time of Encounter: 14:25 - Discharge Diagnosis (1) Cavitary lesion of lung Priority: Primary Status: Acute (2) Acute dyspnea Priority: Secondary Status: Acute (3) Cough with hemoptysis Priority: Secondary Status: Acute (4) Moderate persistent asthma Priority: Secondary Status: Chronic Qualifiers: Asthma complication type: uncomplicated Qualified Code(s): J45.40 - Moderate persistent asthma, uncomplicated (5) Multiple lung nodules on CT Priority: Secondary Status: Acute - Discharge Medications Prescriptions: predniSONE [PredniSONE] 60 mg PO DAILY #60 tablet Home Medications: Albuterol Sulfate [Albuterol Inhaler] 2 puff PO Q4-6H PRN 09/08/16 [History] Budesonide/Formoterol 160/4.5 [Symbicort 160/4.5] 2 puff IH BID 09/08/16 [ History] Loratadine [Allergy Relief] 10 mg PO DAILY 09/08/16 [History] Omeprazole [PriLOSEC] 20 mg PO DAILY 09/08/16 [History] predniSONE [PredniSONE] 60 mg PO DAILY #60 tablet 09/11/16 [Rx] Allergies/Adverse Reactions: Allergies bismuth subsalicylate [From Pepto-Bismol] Allergy (Verified 09/08/16 11:10) Hives Procedures/tests Complete & Pending: Procedures Performed prior 72 hours Category Date Time Status CT sinus wo con [CT] Routine Cat Scan 09/11/16 14:00 Draft Date of admission: 09/08/16 16:22 Primary care physician: Rosa Gifford Consults: 09/09/16 08:05 Consult to Respiratory Therapy [CONS] Stat Reason for Consult: induced sputum Call Completed: Yes 09/11/16 09:32 Consult to Physician [CONS] Routine Consulting Provider: Ran Rodriguez Reason for Consult: Possible vasculitis Time Notified: 09:33 Call Completed: Yes Discharging clinician: Dirk Rinaldi Anticipated date of discharge: 09/11/16 - Patient Status Disposition: Home, Self-Care Condition: Good Functional capacity at discharge: independent ambulation Overall status at discharge: patient is progressing back to baseline - Discharge Instructions Instructions: Asthma (DC) Follow Up With: Rosa Gifford MD [Primary Care Provider] - 09/18/16 1:15 pm Quan Clement MD [Partnered Physician] - (One week) Ran Rodriguez DO [Partnered Physician] - (In 1-2 weeks) - Diet and Activity Activity: resume usual activities as tolerated Diet: advance to your usual diet Hospital course: Mr. Rodriguez is a 36 year old male patient with a history of moderate persistent asthma, esophageal ulcers who was admitted here after presenting to the ER with complaints of progressive shortness of breath and hemoptysis along with left- sided pleuritic chest pain. Patient had been having about 4 bouts of hemoptysis every day. He was also having some joint pain in his shoulders and elbows. He had received bouts of steroids along with inhalers as this was believed to be due to asthma exacerbation prior to his presentation. In the ER , patient underwent CT angiogram of the chest which showed multiple bilateral lung nodules with the largest one in the left upper lobe measuring about 2.2 cm with central cavitation. As such pulmonology and infectious disease was consulted due to concern for pulmonary infections including TB, fungal infections or vasculitis. Patient was initially started on antibiotics but these were discontinued per ID recommendations pending bronchoscopy. Patient underwent bronchoscopy yesterday. AFB smears have been negative. Cultures have also been negative. Legionella and cryptococcal antigen in urine have also been negative. Pathology results from BAL shows no tumor cells and the specimen was hypocellular. Patient's blood work showed an elevated ESR and CRP. Rheumatologic testing was also done patient has a slightly elevated CCP IgG level and positive JEOVANNY screen. However MPO and SP3 are negative. Respiratory, hepatitis, HIV serologies are also negative. Fungal antigen levels are also negative. Given these findings, it is unclear as to what statural cause of the patient's lung nodules and cavitary lesions. Rheumatology was consulted. For now, patient has been started on prednisone 60 mg and will follow up with pulmonology and rheumatology as outpatient. Patient may need lung biopsy to develop a clear diagnosis and treatment plan. - Time Spent with Patient Total time spent providing and/or coordinating discharge services: Less than 30 minutes (25 min) - Constitutional Vitals: Temp Pulse Resp BP Pulse Ox 98.6 F 82 16 137/79 95 09/11/16 11:09/11/16 11:09/11/16 11:09/11/16 11:09/11/16 11:00 General appearance: Present: cooperative, A&O X 3, pleasant, no acute distress, answers questions appropriately - Respiratory Respiratory exam: Present: CTAB. Absent: accessory muscle use, rales, rhonchi, wheezes - Cardiovascular Cardiovascular exam: Present: RRR, +S1, +S2. Absent: diastolic murmur, gallop, rubs, systolic murmur - GI/Abdominal GI/Abdominal exam: Present: normal bowel sounds, soft, no peritoneal signs. Absent: distended, tenderness - Extremities Exam Extremities exam: Present: warm, radial pulses palpable and symetrical. Absent : calf tenderness, cyanotic, pedal edema - Neurological Exam Neurological exam: Present: alert, CN II-XII intact, oriented X3, no focal deficits. Absent: facial droop, speech deficit - Skin Skin exam: Present: dry, intact - Attending Attestation This document has been at least partially created by [employer] recognition technology by Dr. Rinaldi. Errors in grammar, wording or other phrases may exist. If errors are found after the documentation is signed, they will be addressed individually in the addendum section of this document when appropriate.
[2016-09-12 08:42] LABS: QuantiFERON Mitogen minus NIL >10.00 IU/mL; QuantiFERON-TB minus NIL 0.01 IU/mL (0.00-0.34)
[2016-09-12 10:21] LABS: QuantiFERON NIL 0.02 IU/mL; QuantiFERON-TB Gold In-Tube NEGATIVE (Negative)
[2016-09-12 10:57] LABS: ANA IgG IFA Titer 1:40 (<1:40)
[2016-09-14 08:03] LABS: Influenza A PCR Body Fluid NOT DETECTED; Influenza B PCR Body Fluid NOT DETECTED; RSV PCR Body Fluid NOT DETECTED
[2016-09-14 08:28] LABS: Aspergillus Ab by CF <1:8 (<1:8); Blastomyces Ab by CF <1:8 (<1:8); Coccidioides Ab by CF <1:2 (<1:2)
== END 2016-09-11 15:03 | disposition home or self-care (01) | DRG 144 ==
LOC: EMEROO 22:21 → 2NENU 22:21 → 2ANU 09-08 15:59 → SUATTDRO 09-08 16:22
PROVIDERS: ADMIT Internal Medicine; ATTEND Internal Medicine

== ENCOUNTER 2018-05-13 07:19 | Inpatient (IN) ==
--- NOTE | 2018-05-13 07:47 | Emergency Department Note ---
Disposition Clinical Impression: Sepsis, Cavitary lesion of lung, Hemoptysis Disposition: Admitted As Inpatient Condition: Fair General Adult HPI - General Chief complaint: ED Nausea/Vomiting/Diarrhea Stated complaint: N/V/body aches Time Seen by Provider: 05/13/18 07:27 Source: patient Limitations: no limitations - History of Present Illness Pain Scale: 8 - Related Data Home Medications Medication Instructions Recorded Confirmed RX: Albuterol Sulfate [Albuterol 2 puff PO Q4-6H PRN 09/08/16 05/13/18 Inhaler] RX: Loratadine [Allergy Relief] 10 mg PO DAILY 09/08/16 05/13/18 RX: Omeprazole [PriLOSEC] 20 mg PO DAILY 09/08/16 05/13/18 Albuterol Neb [Proventil Neb] 2.5 mg IH Q4H PRN 12/11/16 05/13/18 Fluticasone/Salmeterol [Airduo 1 puff IH BID 05/13/18 05/13/18 Respiclick 113-14 Mcg] Allergies Allergy/AdvReac Type Severity Reaction Status Date / Time bismuth subsalicylate Allergy Hives Verified 05/13/18 15:38 [From Pepto-Bismol] Past Medical History - Past Medical History Medical history: Reports: asthma, GERD, other Surgical history: Reports: no surgical history Psychiatric history: Reports: no psych history - Social History Smoking Status: Never smoker Smokeless Tobacco Status: No Alcohol use: Reports: occasionally Drug use: Reports: none Physical Exam - General Limitations: no limitations General appearance: alert, in no apparent distress Course Vital Signs Temperature 97.6 F 05/13/18 07:22 Pulse Rate 113 05/13/18 07:22 Respiratory Rate 22 05/13/18 07:22 Blood Pressure 124/84 05/13/18 07:22 O2 Sat by Pulse Oximetry 98 05/13/18 07:22 Temperature 101.5 F H 05/13/18 15:26 Pulse Rate 124 05/13/18 15:26 Respiratory Rate 16 05/13/18 16:11 Blood Pressure 123/75 05/13/18 15:26 O2 Sat by Pulse Oximetry 98 05/13/18 16:11 Oxygen Delivery Oxygen Delivery Room Air Medical Decision Making - Lab Data Result diagrams: 05/13/18 08:37 05/13/18 08:37 Lab Results 05/13/18 05/13/18 05/13/18 Range/Units 08:30 08:35 08:37 WBC 19.4 H (4.3-11.1) K/mcL RBC 5.15 (4.19-5.50) M/mcL Hgb 15.1 (12.9-16.9) g/dL Hct 45.3 (37.5-50.1) % MCV 88.0 (83.0-100.0) fL MCH 29.3 (28.0-33.3) pg MCHC 33.3 (31.6-35.5) g/dL RDW 12.4 (11.5-14.5) % Plt Count 265 (140-400) K/mcL MPV 10.3 (9.4-12.4) fL Immature Gran % 0.5 (0-4) % Seg Neutrophils % 84.5 % Lymphocytes % 5.2 % Monocytes % 9.6 % Eosinophils % 0.0 % Basophils % 0.2 % Neutrophils # 16.4 H (1.6-8.9) K/mcL Lymphocytes # 1.0 (0.6-4.6) K/mcL Monocytes # 1.9 H (0.0-1.3) K/mcL Eosinophils # 0.0 (0.0-0.6) K/mcL Basophils # 0.0 (0.0-0.2) K/mcL PT (9.4-12.1) Seconds INR VBG pH (7.32-7.42) pH Units VBG pCO2 (41-51) mmHg VBG pO2 (25-50) mmHg VBG HCO3 (21-27) mEq/L Sodium (136-145) mEq/L Potassium (3.5-5.1) mEq/L Chloride (98-107) mEq/L Carbon Dioxide (23-29) mEq/L BUN (6-20) mg/dL Creatinine (0.70-1.30) mg/dL Est GFR ( Amer) (> 60) Est GFR (Non-Af Amer) (> 60) BUN/Creatinine Ratio (6-26) Glucose (70-105) mg/dL Calculated Osmolality (280-300) Lactic Acid 2.2 (0.5-2.2) mmol/L Calcium (8.6-10.3) mg/dL Phosphorus (2.7-4.5) mg/dL Magnesium (1.6-2.6) mg/dL Total Bilirubin (0.3-1.0) mg/dL Direct Bilirubin (0.0-0.2) mg/dL Indirect Bilirubin (0.0-1.2) mg/dL AST (13-39) Units/L ALT (7-52) Units/L Alkaline Phosphatase (34-104) Units/L Creatine Kinase (30-223) Units/L Troponin I (< 0.04) ng/mL Serum Total Protein (6.4-8.9) g/dL Albumin (3.5-5.7) g/dL Globulin (2.4-3.5) g/dL Albumin/Globulin Ratio (1.1-2.2) Lipase (11-82) Units/L Urine Color [place] A (Yellow) Urine Clarity Clear (Clear) Urine pH 5.0 (5.0-8.0) pH Units Ur Specific [place] 1.025 (1.010-1.025) Urine Protein 100 H (Neg-Trace) mg/dL Urine Glucose (UA) Normal (Normal) mg/dL Urine Ketones Negative (Negative) mg/dL Urine Blood Negative (Negative) Urine Nitrite Positive A (Negative) Urine Bilirubin Small H (Negative) Urine Urobilinogen 2.0 H (Normal) mg/dL Ur Leukocyte Esterase Trace H (Negative) Urine Microscopic RBC 0-3 (0-3) per hpf Urine Microscopic WBC 3-5 H (0-3) per hpf Ur Squamous Epith Cells Many H (None-Few) per lpf Urine Bacteria None Seen (None-Few) per hpf Hyaline Casts None Seen (None-Few) per lpf Urine Mucus Few (Few) Ur Culture Indicated? NO. A (NO) Specimen Rejected Blood Type Antibody Screen 05/13/18 05/13/18 05/13/18 Range/Units 08:37 08:37 08:37 WBC (4.3-11.1) K/mcL RBC (4.19-5.50) M/mcL Hgb (12.9-16.9) g/dL Hct (37.5-50.1) % MCV (83.0-100.0) fL MCH (28.0-33.3) pg MCHC (31.6-35.5) g/dL RDW (11.5-14.5) % Plt Count (140-400) K/mcL MPV (9.4-12.4) fL Immature Gran % (0-4) % Seg Neutrophils % % Lymphocytes % % Monocytes % % Eosinophils % % Basophils % % Neutrophils # (1.6-8.9) K/mcL Lymphocytes # (0.6-4.6) K/mcL Monocytes # (0.0-1.3) K/mcL Eosinophils # (0.0-0.6) K/mcL Basophils # (0.0-0.2) K/mcL PT 16.0 H (9.4-12.1) Seconds INR 1.4 VBG pH (7.32-7.42) pH Units VBG pCO2 (41-51) mmHg VBG pO2 (25-50) mmHg VBG HCO3 (21-27) mEq/L Sodium 134 L (136-145) mEq/L Potassium 4.4 (3.5-5.1) mEq/L Chloride 98 (98-107) mEq/L Carbon Dioxide 24 (23-29) mEq/L BUN 21 H (6-20) mg/dL Creatinine 1.02 (0.70-1.30) mg/dL Est GFR ( Amer) > 60 (> 60) Est GFR (Non-Af Amer) > 60 (> 60) BUN/Creatinine Ratio 21 (6-26) Glucose 118 H (70-105) mg/dL Calculated Osmolality 282 (280-300) Lactic Acid (0.5-2.2) mmol/L Calcium 9.9 (8.6-10.3) mg/dL Phosphorus 3.8 (2.7-4.5) mg/dL Magnesium 2.1 (1.6-2.6) mg/dL Total Bilirubin 1.6 H (0.3-1.0) mg/dL Direct Bilirubin 0.3 H (0.0-0.2) mg/dL Indirect Bilirubin 1.3 H (0.0-1.2) mg/dL AST 21 (13-39) Units/L ALT 30 (7-52) Units/L Alkaline Phosphatase 103 (34-104) Units/L Creatine Kinase 145 (30-223) Units/L Troponin I 0.03 (< 0.04) ng/mL Serum Total Protein 8.7 (6.4-8.9) g/dL Albumin 4.4 (3.5-5.7) g/dL Globulin 4.3 H (2.4-3.5) g/dL Albumin/Globulin Ratio 1.0 L (1.1-2.2) Lipase < 3 L (11-82) Units/L Urine Color (Yellow) Urine Clarity (Clear) Urine pH (5.0-8.0) pH Units Ur Specific [place] (1.010-1.025) Urine Protein (Neg-Trace) mg/dL Urine Glucose (UA) (Normal) mg/dL Urine Ketones (Negative) mg/dL Urine Blood (Negative) Urine Nitrite (Negative) Urine Bilirubin (Negative) Urine Urobilinogen (Normal) mg/dL Ur Leukocyte Esterase (Negative) Urine Microscopic RBC (0-3) per hpf Urine Microscopic WBC (0-3) per hpf Ur Squamous Epith Cells (None-Few) per lpf Urine Bacteria (None-Few) per hpf Hyaline Casts (None-Few) per lpf Urine Mucus (Few) Ur Culture Indicated? (NO) Specimen Rejected Blood Type O POSITIVE Antibody Screen NEGATIVE 05/13/18 05/13/18 05/13/18 Range/Units 09:01 12:57 13:27 WBC (4.3-11.1) K/mcL RBC (4.19-5.50) M/mcL Hgb (12.9-16.9) g/dL Hct (37.5-50.1) % MCV (83.0-100.0) fL MCH (28.0-33.3) pg MCHC (31.6-35.5) g/dL RDW (11.5-14.5) % Plt Count (140-400) K/mcL MPV (9.4-12.4) fL Immature Gran % (0-4) % Seg Neutrophils % % Lymphocytes % % Monocytes % % Eosinophils % % Basophils % % Neutrophils # (1.6-8.9) K/mcL Lymphocytes # (0.6-4.6) K/mcL Monocytes # (0.0-1.3) K/mcL Eosinophils # (0.0-0.6) K/mcL Basophils # (0.0-0.2) K/mcL PT 15.6 H (9.4-12.1) Seconds INR 1.4 VBG pH 7.39 (7.32-7.42) pH Units VBG pCO2 39 L (41-51) mmHg VBG pO2 64 H (25-50) mmHg VBG HCO3 24 (21-27) mEq/L Sodium (136-145) mEq/L Potassium (3.5-5.1) mEq/L Chloride (98-107) mEq/L Carbon Dioxide (23-29) mEq/L BUN (6-20) mg/dL Creatinine (0.70-1.30) mg/dL Est GFR ( Amer) (> 60) Est GFR (Non-Af Amer) (> 60) BUN/Creatinine Ratio (6-26) Glucose (70-105) mg/dL Calculated Osmolality (280-300) Lactic Acid (0.5-2.2) mmol/L Calcium (8.6-10.3) mg/dL Phosphorus (2.7-4.5) mg/dL Magnesium (1.6-2.6) mg/dL Total Bilirubin (0.3-1.0) mg/dL Direct Bilirubin (0.0-0.2) mg/dL Indirect Bilirubin (0.0-1.2) mg/dL AST (13-39) Units/L ALT (7-52) Units/L Alkaline Phosphatase (34-104) Units/L Creatine Kinase (30-223) Units/L Troponin I (< 0.04) ng/mL Serum Total Protein (6.4-8.9) g/dL Albumin (3.5-5.7) g/dL Globulin (2.4-3.5) g/dL Albumin/Globulin Ratio (1.1-2.2) Lipase (11-82) Units/L Urine Color (Yellow) Urine Clarity (Clear) Urine pH (5.0-8.0) pH Units Ur Specific [place] (1.010-1.025) Urine Protein (Neg-Trace) mg/dL Urine Glucose (UA) (Normal) mg/dL Urine Ketones (Negative) mg/dL Urine Blood (Negative) Urine Nitrite (Negative) Urine Bilirubin (Negative) Urine Urobilinogen (Normal) mg/dL Ur Leukocyte Esterase (Negative) Urine Microscopic RBC (0-3) per hpf Urine Microscopic WBC (0-3) per hpf Ur Squamous Epith Cells (None-Few) per lpf Urine Bacteria (None-Few) per hpf Hyaline Casts (None-Few) per lpf Urine Mucus (Few) Ur Culture Indicated? (NO) Specimen Rejected Accident Blood Type Antibody Screen Critical Care Time Critical Care Time: Yes Total Critical Care Time: 30 Attestation: The high probability of a clinically significant, sudden or life threatening deterioration of the [] system(s) required my full and direct attention, intervention and personal management. The aggregate critical care time was [] minutes. This time is in addition to time spent performing reported procedures but includes the following: [] Data Review and interpretation [] Patient assessment and monitoring of vital signs [] Documentation [] Medication orders and management Attestation Statement - Attestation Attestation: I examined this patient and my medical decision-making was reviewed with the Resident Physician. I agree with the documented findings, disposition and treatment plan as described except to the extent set forth below. Face to face time provided Patient arrives complaining of generalized malaise as well as nausea and vomiting. He appears uncomfortable on exam. He is tachycardic at triage. He denies ill contacts
[2018-05-13] MEDS ORDERED: Isovue-370 500 ML BOTTLE IVP ONE ×3 (08:07→08:27)
[2018-05-13] MEDS ORDERED: Ondansetron 4 MG/2 ML VIAL IVP ONE (08:09)
[2018-05-13] MEDS ORDERED: *HR* FentaNYL (PF) 100 MCG/2 ML VIAL IVP ONE (08:09)
[2018-05-13] MEDS ORDERED: Pantoprazole 40 MG VIAL IVP ONE (08:10)
[2018-05-13] MEDS ORDERED: Ipratropium/Albuterol Neb 3 ML IH ONE ×2 (08:14→10:14)
--- NOTE | 2018-05-13 08:14 | Emergency Department Note ---
Disposition Clinical Impression: Cavitary lesion of lung, Hemoptysis Sepsis Qualifiers: Sepsis type: sepsis due to unspecified organism Qualified Code(s): A41.9 - Sepsis, unspecified organism Disposition: Admitted As Inpatient Condition: Fair Referrals: Rosa Gifford MD [Primary Care Provider] - Forms: ED Satisfaction Letter Time of Disposition: 10:44 General Adult HPI - General Chief complaint: ED Nausea/Vomiting/Diarrhea Stated complaint: N/V/body aches Time Seen by Provider: 05/13/18 07:27 Source: patient Mode of arrival: ambulatory Limitations: no limitations Nursing Notes Reviewed: Yes Vital Signs Reviewed: Yes - History of Present Illness HPI Narrative: 37-year-old male with history of asthma percent for evaluation of nausea vomiting and diffuse body aches. Patient also states he was evaluated 2 years ago and did have pulmonary cavitary lesions and did not follow-up. States symptom onset began possibly 5 days ago with diffuse body aches. Notes generalized malaise. States this progressed to shortness of breath chest pain and hemoptysis with posttussive emesis. Patient also notes primarily epigastric abdominal discomfort. Also notes diffuse joint pain. Denies any diarrhea or constipation. Patient denies any notable fevers but does note some diaphoresis and subjective fevers. No recent ill contacts. Pain Scale: 8 - Related Data Home Medications Medication Instructions Recorded Confirmed Albuterol Sulfate [Albuterol 2 puff PO Q4-6H PRN 09/08/16 12/11/16 Inhaler] Budesonide/Formoterol 160/4.5 2 puff IH BID 09/08/16 12/11/16 [Symbicort 160/4.5] Loratadine [Allergy Relief] 10 mg PO DAILY 09/08/16 12/11/16 Omeprazole [PriLOSEC] 20 mg PO DAILY 09/08/16 12/11/16 Albuterol Neb [Proventil Neb] 2.5 mg IH Q4H PRN 12/11/16 12/11/16 Allergies Allergy/AdvReac Type Severity Reaction Status Date / Time bismuth subsalicylate Allergy Hives Verified 05/13/18 07:20 [From Pepto-Bismol] All systems ED: reviewed and negative except as stated. Constitutional: Reports: fever, chills Cardiovascular: Reports: chest pain Respiratory: Reports: cough Gastrointestinal: Reports: abdominal pain, nausea, vomiting Past Medical History - Past Medical History Source: patient Medical history: Reports: asthma, GERD, other Surgical history: Reports: no surgical history Psychiatric history: Reports: no psych history - Social History Smoking Status: Never smoker Smokeless Tobacco Status: No Alcohol use: Reports: occasionally Drug use: Reports: none Physical Exam - General Limitations: no limitations General appearance: alert, other (appears unwell) - Head Head exam: atraumatic, normocephalic, normal inspection - Eye Eye exam: Present: normal appearance, PERRL, EOMI - ENT ENT exam: normal exam, mucous membranes dry - Neck Neck exam: Present: normal inspection - Chest Chest inspection: Present: normal inspection, symmetric chest wall rise - Respiratory Respiratory exam: Present: wheezes, other (poor inspiratory effort) - Cardiovascular Cardiovascular exam: Present: tachycardia. Absent: systolic murmur - Abdominal Exam Abdominal exam: Present: soft, tenderness. Absent: guarding, rebound - Extremities Exam Extremities exam: Present: normal inspection. Absent: pedal edema - Back Exam Back exam: Present: normal inspection - Neurological Exam Neurological exam: Present: alert, oriented X3, CN II-XII intact - Skin Skin exam: Present: warm, dry, intact, normal color Course Course Narrative: Patient's last hospitalization reviewed. Patient was admitted for hemoptysis diagnosis of cavitary lesions evaluated by infectious disease rheumatology and pulmonology. Patient had 3 negative AFB stains. Etiology of the cavitary lesi ons was unknown. Patient did not follow-up with rheumatology following discharge. Given the patient's hemoptysis. Will obtain advanced imaging of the chest abdomen pelvis. Will also get basic labs IV fluids. - Reevaluation(s) Reevaluation #1: Started emperic antibiotics to cover enteric as well as pulmonary sources. Time: 09:42 - Consultations Consultation #1: Did discuss the EKGs with Dr. Durán who will review them. Time: 08:44 Consultation #2: Does not meet STEMI criteria. Recommend serial ECGs. Time: 08:53 Consultation #3: Consult placed to pulmonary for anticipated bronch. Spoke with pulmonary. Time: 10:34 Vital Signs Temperature 97.6 F 05/13/18 07:22 Pulse Rate 113 05/13/18 07:22 Respiratory Rate 22 05/13/18 07:22 Blood Pressure 124/84 05/13/18 07:22 O2 Sat by Pulse Oximetry 98 05/13/18 07:22 Temperature 97.6 F 05/13/18 07:22 Pulse Rate 104 05/13/18 09:50 Respiratory Rate 16 05/13/18 10:28 Blood Pressure 127/86 05/13/18 09:50 O2 Sat by Pulse Oximetry 95 05/13/18 10:28 Oxygen Delivery Oxygen Delivery Room Air Medical Decision Making - [facility] Narrative Medical decision making narrative: Patient presented initially for generalized body aches cough vomiting area patient does have known cavitary lesion. Patient's records reviewed. Patient did appear quite ill upon arrival. Concerns for dissection given his pain. Patient did get CT imaging of the chest abdomen pelvis. Patient had basic labs show leukocytosis and mild elevated bilirubin. Patient was started on broad- spectrum antibiotics. Fluid resuscitated with 2 L of crystalloid. Patient was also given aerosols. Patient's cavitary lesion concerns for infection versus inflammatory process. Patient started on broad-spectrum around coverage. Consulted with Harvinder for anticipated bronc. Patient's records showed negative TB testing in the past over the patient will be placed in isolation. - Lab Data Lab results reviewed: Yes I reviewed the patient's lab results. Result diagrams: 05/13/18 08:37 05/13/18 08:37 Lab Results 05/13/18 05/13/18 05/13/18 Range/Units 08:30 08:35 08:37 WBC 19.4 H (4.3-11.1) K/mcL RBC 5.15 (4.19-5.50) M/mcL Hgb 15.1 (12.9-16.9) g/dL Hct 45.3 (37.5-50.1) % MCV 88.0 (83.0-100.0) fL MCH 29.3 (28.0-33.3) pg MCHC 33.3 (31.6-35.5) g/dL RDW 12.4 (11.5-14.5) % Plt Count 265 (140-400) K/mcL MPV 10.3 (9.4-12.4) fL Immature Gran % 0.5 (0-4) % Seg Neutrophils % 84.5 % Lymphocytes % 5.2 % Monocytes % 9.6 % Eosinophils % 0.0 % Basophils % 0.2 % Neutrophils # 16.4 H (1.6-8.9) K/mcL Lymphocytes # 1.0 (0.6-4.6) K/mcL Monocytes # 1.9 H (0.0-1.3) K/mcL Eosinophils # 0.0 (0.0-0.6) K/mcL Basophils # 0.0 (0.0-0.2) K/mcL PT (9.4-12.1) Seconds INR VBG pH (7.32-7.42) pH Units VBG pCO2 (41-51) mmHg VBG pO2 (25-50) mmHg VBG HCO3 (21-27) mEq/L Sodium (136-145) mEq/L Potassium (3.5-5.1) mEq/L Chloride (98-107) mEq/L Carbon Dioxide (23-29) mEq/L BUN (6-20) mg/dL Creatinine (0.70-1.30) mg/dL Est GFR ( Amer) (> 60) Est GFR (Non-Af Amer) (> 60) BUN/Creatinine Ratio (6-26) Glucose (70-105) mg/dL Calculated Osmolality (280-300) Lactic Acid 2.2 (0.5-2.2) mmol/L Calcium (8.6-10.3) mg/dL Phosphorus (2.7-4.5) mg/dL Magnesium (1.6-2.6) mg/dL Total Bilirubin (0.3-1.0) mg/dL Direct Bilirubin (0.0-0.2) mg/dL Indirect Bilirubin (0.0-1.2) mg/dL AST (13-39) Units/L ALT (7-52) Units/L Alkaline Phosphatase (34-104) Units/L Troponin I (< 0.04) ng/mL Serum Total Protein (6.4-8.9) g/dL Albumin (3.5-5.7) g/dL Globulin (2.4-3.5) g/dL Albumin/Globulin Ratio (1.1-2.2) Lipase (11-82) Units/L Urine Color [place] A (Yellow) Urine Clarity Clear (Clear) Urine pH 5.0 (5.0-8.0) pH Units Ur Specific [place] 1.025 (1.010-1.025) Urine Protein 100 H (Neg-Trace) mg/dL Urine Glucose (UA) Normal (Normal) mg/dL Urine Ketones Negative (Negative) mg/dL Urine Blood Negative (Negative) Urine Nitrite Positive A (Negative) Urine Bilirubin Small H (Negative) Urine Urobilinogen 2.0 H (Normal) mg/dL Ur Leukocyte Esterase Trace H (Negative) Urine Microscopic RBC 0-3 (0-3) per hpf Urine Microscopic WBC 3-5 H (0-3) per hpf Ur Squamous Epith Cells Many H (None-Few) per lpf Urine Bacteria None Seen (None-Few) per hpf Hyaline Casts None Seen (None-Few) per lpf Urine Mucus Few (Few) Ur Culture Indicated? NO. A (NO) Blood Type Antibody Screen 05/13/18 05/13/18 05/13/18 Range/Units 08:37 08:37 08:37 WBC (4.3-11.1) K/mcL RBC (4.19-5.50) M/mcL Hgb (12.9-16.9) g/dL Hct (37.5-50.1) % MCV (83.0-100.0) fL MCH (28.0-33.3) pg MCHC (31.6-35.5) g/dL RDW (11.5-14.5) % Plt Count (140-400) K/mcL MPV (9.4-12.4) fL Immature Gran % (0-4) % Seg Neutrophils % % Lymphocytes % % Monocytes % % Eosinophils % % Basophils % % Neutrophils # (1.6-8.9) K/mcL Lymphocytes # (0.6-4.6) K/mcL Monocytes # (0.0-1.3) K/mcL Eosinophils # (0.0-0.6) K/mcL Basophils # (0.0-0.2) K/mcL PT 16.0 H (9.4-12.1) Seconds INR 1.4 VBG pH (7.32-7.42) pH Units VBG pCO2 (41-51) mmHg VBG pO2 (25-50) mmHg VBG HCO3 (21-27) mEq/L Sodium 134 L (136-145) mEq/L Potassium 4.4 (3.5-5.1) mEq/L Chloride 98 (98-107) mEq/L Carbon Dioxide 24 (23-29) mEq/L BUN 21 H (6-20) mg/dL Creatinine 1.02 (0.70-1.30) mg/dL Est GFR ( Amer) > 60 (> 60) Est GFR (Non-Af Amer) > 60 (> 60) BUN/Creatinine Ratio 21 (6-26) Glucose 118 H (70-105) mg/dL Calculated Osmolality 282 (280-300) Lactic Acid (0.5-2.2) mmol/L Calcium 9.9 (8.6-10.3) mg/dL Phosphorus 3.8 (2.7-4.5) mg/dL Magnesium 2.1 (1.6-2.6) mg/dL Total Bilirubin 1.6 H (0.3-1.0) mg/dL Direct Bilirubin 0.3 H (0.0-0.2) mg/dL Indirect Bilirubin 1.3 H (0.0-1.2) mg/dL AST 21 (13-39) Units/L ALT 30 (7-52) Units/L Alkaline Phosphatase 103 (34-104) Units/L Troponin I 0.03 (< 0.04) ng/mL Serum Total Protein 8.7 (6.4-8.9) g/dL Albumin 4.4 (3.5-5.7) g/dL Globulin 4.3 H (2.4-3.5) g/dL Albumin/Globulin Ratio 1.0 L (1.1-2.2) Lipase < 3 L (11-82) Units/L Urine Color (Yellow) Urine Clarity (Clear) Urine pH (5.0-8.0) pH Units Ur Specific [place] (1.010-1.025) Urine Protein (Neg-Trace) mg/dL Urine Glucose (UA) (Normal) mg/dL Urine Ketones (Negative) mg/dL Urine Blood (Negative) Urine Nitrite (Negative) Urine Bilirubin (Negative) Urine Urobilinogen (Normal) mg/dL Ur Leukocyte Esterase (Negative) Urine Microscopic RBC (0-3) per hpf Urine Microscopic WBC (0-3) per hpf Ur Squamous Epith Cells (None-Few) per lpf Urine Bacteria (None-Few) per hpf Hyaline Casts (None-Few) per lpf Urine Mucus (Few) Ur Culture Indicated? (NO) Blood Type O POSITIVE Antibody Screen NEGATIVE 05/13/18 Range/Units 09:01 WBC (4.3-11.1) K/mcL RBC (4.19-5.50) M/mcL Hgb (12.9-16.9) g/dL Hct (37.5-50.1) % MCV (83.0-100.0) fL MCH (28.0-33.3) pg MCHC (31.6-35.5) g/dL RDW (11.5-14.5) % Plt Count (140-400) K/mcL MPV (9.4-12.4) fL Immature Gran % (0-4) % Seg Neutrophils % % Lymphocytes % % Monocytes % % Eosinophils % % Basophils % % Neutrophils # (1.6-8.9) K/mcL Lymphocytes # (0.6-4.6) K/mcL Monocytes # (0.0-1.3) K/mcL Eosinophils # (0.0-0.6) K/mcL Basophils # (0.0-0.2) K/mcL PT (9.4-12.1) Seconds INR VBG pH 7.39 (7.32-7.42) pH Units VBG pCO2 39 L (41-51) mmHg VBG pO2 64 H (25-50) mmHg VBG HCO3 24 (21-27) mEq/L Sodium (136-145) mEq/L Potassium (3.5-5.1) mEq/L Chloride (98-107) mEq/L Carbon Dioxide (23-29) mEq/L BUN (6-20) mg/dL Creatinine (0.70-1.30) mg/dL Est GFR ( Amer) (> 60) Est GFR (Non-Af Amer) (> 60) BUN/Creatinine Ratio (6-26) Glucose (70-105) mg/dL Calculated Osmolality (280-300) Lactic Acid (0.5-2.2) mmol/L Calcium (8.6-10.3) mg/dL Phosphorus (2.7-4.5) mg/dL Magnesium (1.6-2.6) mg/dL Total Bilirubin (0.3-1.0) mg/dL Direct Bilirubin (0.0-0.2) mg/dL Indirect Bilirubin (0.0-1.2) mg/dL AST (13-39) Units/L ALT (7-52) Units/L Alkaline Phosphatase (34-104) Units/L Troponin I (< 0.04) ng/mL Serum Total Protein (6.4-8.9) g/dL Albumin (3.5-5.7) g/dL Globulin (2.4-3.5) g/dL Albumin/Globulin Ratio (1.1-2.2) Lipase (11-82) Units/L Urine Color (Yellow) Urine Clarity (Clear) Urine pH (5.0-8.0) pH Units Ur Specific [place] (1.010-1.025) Urine Protein (Neg-Trace) mg/dL Urine Glucose (UA) (Normal) mg/dL Urine Ketones (Negative) mg/dL Urine Blood (Negative) Urine Nitrite (Negative) Urine Bilirubin (Negative) Urine Urobilinogen (Normal) mg/dL Ur Leukocyte Esterase (Negative) Urine Microscopic RBC (0-3) per hpf Urine Microscopic WBC (0-3) per hpf Ur Squamous Epith Cells (None-Few) per lpf Urine Bacteria (None-Few) per hpf Hyaline Casts (None-Few) per lpf Urine Mucus (Few) Ur Culture Indicated? (NO) Blood Type Antibody Screen - Radiology Data Radiology results reviewed: Yes I reviewed the patient's radiology results. Chest CTA 05/13/18 00:00 IMPRESSION: Cavitary lesion in the left upper lobe with associated infiltrate as well as extensive mediastinal and hilar lymphadenopathy. Differential diagnosis would include infectious etiologies although a neoplastic etiology cannot be excluded. Bilateral subpleural nodules are also identified and infectious and neoplastic etiologies are considered. Negative for pulmonary embolus Negative for aortic dissection D/ / Koko Allen MD / Koko Allen MD Interpreting Provider: Koko Allen MD Dissection 05/13/18 08:07 IMPRESSION: Cavitary lesion in the left upper lobe with associated infiltrate as well as extensive mediastinal and hilar lymphadenopathy. Differential diagnosis would include infectious etiologies although a neoplastic etiology cannot be excluded. Bilateral subpleural nodules are also identified and infectious and neoplastic etiologies are considered. Negative for pulmonary embolus Negative for aortic dissection D/ / Koko Allen MD / Koko Allen MD Interpreting Provider: Koko Allen MD - EKG Data EKG #1 EKG attestation: Yes I reviewed and interpreted this EKG. EKG shows normal: sinus rhythm Rate: tachycardia Rhythm: NSR [place]/QRS: normal ST segment elevation in: I, aVL T wave inversions noted in: III, aVR When compared to previous EKG there are: changes noted Interpretation: nonspecific ST-T wave changes EKG #2 EKG attestation: Yes I reviewed and interpreted this EKG. EKG shows normal: sinus rhythm Rate: normal Rhythm: NSR [place]/QRS: normal When compared to previous EKG there are: changes noted Interpretation: nonspecific ST-T wave changes S.B.A.R. - S.B.AEdward Situation: Demographics Background: Presenting Complaint Assessment: Vital Signs, Course and respsone to treatment, Patient/Family Expectation Recommendation: Barrier(s) to disposition, Recommendation based on pending studies, treatments, or consults S.B.A.Brad Report Given to: Dr. Kermit Pina Repor Time: 10:43
[2018-05-13] MEDS ORDERED: 0.9 % Sodium Chloride 1,000 ML ONE (08:26)
[2018-05-13] MEDS: 0.9 % Sodium Chloride 1,000 ML IVC SCH ×2 (08:37→10:14)
[2018-05-13 08:45] LABS: Bilirubin,Urine Small (Negative); Blood,Urine Negative (Negative); Clarity,Urine Clear (Clear); Color,Urine Orange (Yellow); Glucose,Urine (UA) Normal (Normal); Ketones,Urine Negative (Negative); Leukocyte Esterase,Urine Trace (Negative); Nitrite,Urine Positive (Negative); Protein,Urine 100 mg/dL (Neg-Trace); Specific Gravity,Urine 1.025 (1.010-1.025)
[2018-05-13 08:46] LABS: Bacteria,Urine None Seen per hpf (None-Few); Hyaline Casts,Urine None Seen per lpf (None-Few); RBC,Urine 0-3 per hpf (0-3); Squamous Epithelial Cell,Urine Many per lpf (None-Few)
[2018-05-13 09:04] LABS: VBG HCO3 24 mEq/L (21-27); VBG PCO2 39 mmHg (41-51); VBG PH 7.39 pH Units (7.32-7.42); VBG PO2 64 mmHg (25-50)
[2018-05-13 09:04] LABS: Mucus,Urine Few (Few)
[2018-05-13] MEDS ORDERED: Ipratropium/Albuterol Neb 3 ML ONE (09:04)
[2018-05-13 09:14] LABS: Basophils % 0.2 %; Hematocrit 45.3 % (37.5-50.1); Hemoglobin 15.1 g/dL (12.9-16.9); Immature Granulocytes % 0.5 % (0-4); Lymphocytes % 5.2 %; Mean Corpuscular HGB Conc 33.3 g/dL (31.6-35.5); Mean Corpuscular Hemoglobin 29.3 pg (28.0-33.3); Mean Platelet Volume 10.3 fL (9.4-12.4); Monocytes # 1.9 K/mcL (0.0-1.3); Monocytes % 9.6 %; Neutrophils # 16.4 K/mcL (1.6-8.9); Platelet Count 265 K/mcL (140-400); Red Blood Count 5.15 M/mcL (4.19-5.50); Red Cell Distribution Width 12.4 % (11.5-14.5); Segmented Neutrophils % 84.5 %
[2018-05-13 09:21] LABS: INR 1.4
[2018-05-13 09:23] LABS: Troponin I 0.03 ng/mL (< 0.04)
[2018-05-13] MEDS ORDERED: Piperacillin/Tazobactam 3.375 GM in 0.9 % Sodium Chloride Mini Bag 100 ML IVPB ONE (09:34)
[2018-05-13 10:06] LABS: Alanine Aminotransferase 30 Units/L (7-52); Albumin 4.4 g/dL (3.5-5.7); Alkaline Phosphatase 103 Units/L (34-104); Aspartate Amino Transferase 21 Units/L (13-39); BUN/Creatinine Ratio 21 (6-26); Bilirubin,Direct 0.3 mg/dL (0.0-0.2); Bilirubin,Indirect 1.3 mg/dL (0.0-1.2); Bilirubin,Total 1.6 mg/dL (0.3-1.0); Blood Urea Nitrogen 21 mg/dL (6-20); Calcium 9.9 mg/dL (8.6-10.3); Carbon Dioxide 24 mEq/L (23-29); Chloride 98 mEq/L (98-107); Globulin 4.3 g/dL (2.4-3.5); Glucose 118 mg/dL (70-105); Lipase < 3 Units/L (11-82); Magnesium 2.1 mg/dL (1.6-2.6); Osmolality,Calculated 282 (280-300); Phosphorous 3.8 mg/dL (2.7-4.5); Potassium 4.4 mEq/L (3.5-5.1); Sodium 134 mEq/L (136-145); Total Protein 8.7 g/dL (6.4-8.9); eGFR For Non-African Americans > 60 (> 60)
[2018-05-13] MEDS ORDERED: 0.9 % Sodium Chloride 1,000 ML IVC SCH (11:00)
--- NOTE | 2018-05-13 11:26 | Pulmonology Consult Note ---
<Quan Clement W - Last Filed: 05/13/18 14:46> Date of Encounter: 05/13/18 Medications and Allergies Albuterol Sulfate [Albuterol Inhaler] 2 puff PO Q4-6H PRN 09/08/16 [History] Budesonide/Formoterol 160/4.5 [Symbicort 160/4.5] 2 puff IH BID 09/08/16 [History] Loratadine [Allergy Relief] 10 mg PO DAILY 09/08/16 [History] Omeprazole [PriLOSEC] 20 mg PO DAILY 09/08/16 [History] Albuterol Neb [Proventil Neb] 2.5 mg IH Q4H PRN 12/11/16 [History] Allergy/AdvReac Type Severity Reaction Status Date / Time bismuth subsalicylate Allergy Hives Verified 05/13/18 07:20 [From Pepto-Bismol] All Systems: The remainder of the systems were reviewed and are negative Physical Examination Vital Signs: Vital Signs, Last 4 Hours Pulse Resp BP Pulse Ox 05/13/18 14:15 117 23 122/82 93 05/13/18 13:15 115 20 143/96 93 05/13/18 12:10 121 19 132/80 96 Results - Laboratory Findings CBC and BMP: 05/13/18 08:37 05/13/18 08:37 PT/INR, D-dimer PT 15.6 Seconds (9.4-12.1) H 05/13/18 13:27 Abnormal lab findings: Abnormal lab results WBC 19.4 K/mcL (4.3-11.1) H 05/13/18 08:37 Neutrophils # 16.4 K/mcL (1.6-8.9) H 05/13/18 08:37 Monocytes # 1.9 K/mcL (0.0-1.3) H 05/13/18 08:37 PT 15.6 Seconds (9.4-12.1) H 05/13/18 13:27 VBG pCO2 39 mmHg (41-51) L 05/13/18 09:01 VBG pO2 64 mmHg (25-50) H 05/13/18 09:01 Sodium 134 mEq/L (136-145) L 05/13/18 08:37 BUN 21 mg/dL (6-20) H 05/13/18 08:37 Glucose 118 mg/dL (70-105) H 05/13/18 08:37 Total Bilirubin 1.6 mg/dL (0.3-1.0) H 05/13/18 08:37 Direct Bilirubin 0.3 mg/dL (0.0-0.2) H 05/13/18 08:37 Indirect Bilirubin 1.3 mg/dL (0.0-1.2) H 05/13/18 08:37 Globulin 4.3 g/dL (2.4-3.5) H 05/13/18 08:37 Albumin/Globulin Ratio 1.0 (1.1-2.2) L 05/13/18 08:37 Lipase < 3 Units/L (11-82) L 05/13/18 08:37 Urine Color Rogers (Yellow) A 05/13/18 08:30 Urine Protein 100 mg/dL (Neg-Trace) H 05/13/18 08:30 Urine Nitrite Positive (Negative) A 05/13/18 08:30 Urine Bilirubin Small (Negative) H 05/13/18 08:30 Urine Urobilinogen 2.0 mg/dL (Normal) H 05/13/18 08:30 Ur Leukocyte Esterase Trace (Negative) H 05/13/18 08:30 Urine Microscopic WBC 3-5 per hpf (0-3) H 05/13/18 08:30 Ur Squamous Epith Cells Many per lpf (None-Few) H 05/13/18 08:30 Ur Culture Indicated? NO. (NO) A 05/13/18 08:30 - Microbiology Findings Microbiology Findings: Microbiology, Last 48 Hours 05/13/18 08:37 Blood Culture - Preliminary Peripheral Venipuncture Culture is incubating and being continuously monitored for growth. Final report to follow. 05/13/18 08:35 Blood Culture - Preliminary Peripheral Venipuncture Culture is incubating and being continuously monitored for growth. Final report to follow. 05/13/18 08:43 Influenza Types A,B Antigen - Final Nasopharyngeal - Clinical Findings Intake & Output: Intake & Output 05/12/18 05/13/18 05/13/18 23:59 07:59 15:59 Intake Total 2099 Balance 2099 Weight 90.083 kg Consult Discharge Plan - Plan Referrals: Rosa Gifford MD [Primary Care Provider] - - Attending Attestation I examined this patient and my medical decision-making was reviewed with the Resident Physician. I agree with the documented findings, disposition and treatment plan as described except to the extent set forth below. We independently had [id number] contact with the patient Patient seen and examined at bedside Labs, radiology, chart personally reviewed. Impression/Recs: Mr. Rodriguez is a pleasant 37-year-old gentleman with severe asthma who presents with recurrent cavitary lung lesion. I suspect underlying vasculitis although ANCA studies in the past were negative other still high pretest probability for eosinophilic granulomatosis with polyangiitis given elevated IgE level and clinical presentation. Plan for bronchoscopy today with transbronchial biopsies is still need to be done under general anesthesia because of bronchospasm encountered last attempt. Agree with antibiotics empirically please send sputum blood urine cultures including strep pneumo and legionella. He is on airborne precautions for concern of tuberculosis which is very low and my impression is he was evaluated for this at last visit and was negative and he has not had any contacts that would put him at risk for this. Start systemic glucocorticoids and will add a combination ICS/LABA he will need scheduled albuterol as well. A bronchoscopy is recommended. The procedure , risks, benefits, complications, and expected outcomes have been reviewed. Benefits of diagnosis, as well as risks to include bleeding, infection, pneumothorax which may require surgical intervention, and in a small population. The patient is aware that sometimes test is nondiagnostic. Discussed with patient and agrees to proceed. Please keep nothing by mouth until procedure. <Bridger Sabillon - Last Filed: 05/13/18 15:09> Date of Encounter: 05/13/18 Time of Encounter: 13:54 Assessment and Plan (1) Cavitary lesion of lung Current Visit: Yes Status: Acute This is a 37-year-old male with past medical history of moderate persistent asthma who presents for evaluation of nausea and vomiting plus body aches for the past 3 days. - Associated with dyspnea, hemoptysis, joint pain, back pain, flank pain - Tachycardic, with elevated white count, but afebrile on presentation - Denies recent homelessness, incarceration, association with contacts who have TB, prison patients - CT chest notable for cavitary lesion left upper lobe with extensive mediastin al and hilar lymphadenopathy. Negative for pulmonary embolus and aortic dissection. - On chart review, patient was seen for similar complaints in September 2016. At that time AFB smears were negative, cultures were negative, Legionella and cryptococcal antigen in urine were negative. Pathology from BAL showed no tumor cells and specimen was hypocellular. Blood work notable for elevated ESR and CRP, and patient has slightly elevated CCP IgG level and positive ANAs screen. However MPO and SP3 were negative. Respiratory, hepatitis, and HIV serologies negative. Fungal antigen levels negative. Patient was discharged home on 60 mg prednisone and given advice to follow up with pulmonology and rheumatology. PLAN: Patient presents with symptomology similar to previous admission approximately one and a half years ago in September 2016. - At that time labs notable for elevated ESR and CRP, slightly elevated CCP IgG level, and positive ANAs screen; however had negative MPO and SP3 and otherwise negative AFB smears, Legionella and cryptococcal antigens, negative blood cultures, negative findings via Bronchoscopy. Given findings, less likely infectious process. Low suspicion for TB. However we will reevaluate with bronchoscopy tomorrow. Considering inflammatory versus malignant process. - Patient will undergo bronchoscopy tomorrow to reevaluate cavitary lesion. - NPO after midnight - Recheck PT/INR prior to procedure - Cont empiric antibiotic therapy - Additionally given Solumedrol 125mg one time dose; plan to continue with Solumedrol 60mg q8h starting with next dose - Start symbicort BID, scheduled Duonebs q6h - Follow up Respiratory Infection Panel, MRSA nasal screen, Legionella and Strep Urine Ag - Follow up blood and sputum cultures - Follow up MPO/PR3 Ab - Monitor vitals; monitor O2 sat; maintains sats > 92%; supplemental O2 as needed (2) Cough with hemoptysis Current Visit: Yes Status: Acute Reports a few instances of productive cough with specks of dark blood within sputum over the past 3-4 days - Has resolved over the past day - Associated with nausea and vomiting PLAN: As above - Plan for bronchoscopy tomorrow (3) Moderate persistent asthma Current Visit: No Status: Chronic PFTs (12/13/17): - Spirometry: severe to very severe obstructive ventilatory defect the FEV1/FVC is reduced the FEV1 is 21% which increases to 46% after a 114% increase in the FEV1 postbronchodilator - Lung Volumes: slow vital capacity is reduced; if there is concern about restrictive lung disease this can be confirmed at a later time with lung volumes - DLCO: normal gas exchange however this was not corrected for the patient's hemoglobin - Flow Volume Loop: obstructive PLAN: - Cont scheduled bronchodilators q6h - S/p dose of 125mg Solumedrol; cont with solumedrol 60mg q8h - Start Symbicort BID - Monitor vitals; monitor O2 sat; maintains sats > 92%; supplemental O2 as needed Qualifiers: Asthma complication type: uncomplicated Qualified Code(s): J45.40 - Moderate persistent asthma, uncomplicated History of Present Illness Consult date: 05/13/18 Requesting physician: Dread Roberts Reason for consult: cough, abnormal CXR/CT, other (Hemoptysis, Cavitary Lesion of Lung) Chief complaint: Nausea, Body Aches History of present illness: This is a 37-year-old male with past medical history of moderate persistent asthma who presents for evaluation of nausea and vomiting plus body aches for the past 3 days. Patient notes that he began feeling the body aches 5 days ago, and symptoms of progressively worsened since then. Over the past 3 days, symptoms have progressed to include difficulty breathing and hemoptysis with red specks in sputum. Also notes joint pain, back pain, flank pain. States that though he has been drinking a lot of fluid, urine has remained dark colored. Has also noted feeling feverish and chills over the same time. Patient denies fever, headache, congestion, blurry vision, recent illness or sick contacts, crushing chest pain, diarrhea. Pt seen and evaluated in ED. Patient has remained tachycardic, but otherwise vitals hemodynamically stable. Patient has remained afebrile. However white count = 19.4. Lab work otherwise only notable for elevated bilirubin. CT chest negative for pulmonary embolus and aortic dissection. However notable for cavitary lesion left upper lobe with extensive mediastinal and hilar lymphadenopathy. Given IVF, empiric antibiotic coverage, rodrigo. CTA Chest (05/13/18): - Cavitary lesion in the left upper lobe with associated infiltrate as well as extensive mediastinal and hilar lymphadenopathy. Differential diagnosis would include infectious etiologies although a neoplastic etiology cannot be excluded. Bilateral subpleural nodules are also identified and infectious and neoplastic etiologies are considered. - Negative for pulmonary embolus - Negative for aortic dissection On chart review, patient was seen for similar complaints in September 2016. At that time AFB smears were negative, cultures were negative, Legionella and cryptococcal antigen in urine were negative. Pathology from BAL showed no tumor cells and specimen was hypocellular. Blood work notable for elevated ESR and CRP, and patient has slightly elevated CCP IgG level and positive ANAs screen. However MPO and SP3 were negative. Respiratory, hepatitis, and HIV serologies negative. Fungal antigen levels negative. Patient was discharged home on 60 mg prednisone and given advice to follow up with pulmonology and rheumatology. Pt seen and examined resting at bedside in mild distress. States that he continues to feel fatigued, lethargy, malaise. Associated with mild dyspnea, occasional cough, flank pain, abdominal discomfort. O2 sats appropriate on room air. Plan for bronchoscopy to further evaluate cavitary lesion. Past Med Surg Social Fam HX - Past Medical History Attestation: Yes The following information was validated with the patient. 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 Psychiatric history: no psych history - Past Surgical History Surgical History: no surgical history - Social History Smoking Status: Never smoker Smokeless Tobacco Status: No Alcohol use: occasionally Drug use: none All Systems: The remainder of the systems were reviewed and are negative - Constitutional Constitutional: anorexia, chills, fatigue, fever(s), lethargy, weakness, no headache(s) - EENT Eyes: no loss of vision Ears: no decreased hearing Nose, mouth and throat: no dizziness, no headache(s), no nasal congestion, no sinus pressure - Cardiovascular Cardiovascular: no chest pain, no chest pain at rest, no dyspnea, no dyspnea on exertion, no leg edema, no lightheadedness - Respiratory Respiratory: cough, hemoptysis, pain on inspirtation, no dyspnea on exertion, no wheezing, no chest congestion - Gastrointestinal Gastrointestinal: nausea, vomiting, no abdominal pain, no diarrhea - Genitourinary Genitourinary: flank pain - Musculoskeletal Musculoskeletal: arthralgias, back pain, myalgias - Neurological Neurological: weakness, no confusion, no headache(s), no numbness Physical Examination Vital Signs: Vital Signs, Last 4 Hours Pulse Resp BP Pulse Ox 05/13/18 10:28 16 95 05/13/18 09:50 104 15 127/86 98 05/13/18 08:39 105 16 144/118 97 General appearance: no acute distress, alert Eyes: icteric (Mild Scleral Icterus) ENT: oropharynx moist Neck: supple, no lymphadenopathy Effort: normal Inspection: normal Auscultation: left: diminished breath sounds (diminished breath sounds especially on left side; no wheezes, rales, crackles, rhonchi) Cardiovascular: regular rate and rhythm Gastrointestinal: normoactive bowel sounds, soft, non-tender, non-distended, o ther (Mild Flank Tenderness) Integumentary: normal Extremities: no cyanosis, no edema normal mental status, non-focal exam, pupils equal and round, CN II-XII normal mood appropriate, affect normal Results - Laboratory Findings CBC and BMP: 05/13/18 08:37 05/13/18 08:37 PT/INR, D-dimer PT 16.0 Seconds (9.4-12.1) H 05/13/18 08:37 Abnormal lab findings: Abnormal lab results WBC 19.4 K/mcL (4.3-11.1) H 05/13/18 08:37 Neutrophils # 16.4 K/mcL (1.6-8.9) H 05/13/18 08:37 Monocytes # 1.9 K/mcL (0.0-1.3) H 05/13/18 08:37 PT 16.0 Seconds (9.4-12.1) H 05/13/18 08:37 VBG pCO2 39 mmHg (41-51) L 05/13/18 09:01 VBG pO2 64 mmHg (25-50) H 05/13/18 09:01 Sodium 134 mEq/L (136-145) L 05/13/18 08:37 BUN 21 mg/dL (6-20) H 05/13/18 08:37 Glucose 118 mg/dL (70-105) H 05/13/18 08:37 Total Bilirubin 1.6 mg/dL (0.3-1.0) H 05/13/18 08:37 Direct Bilirubin 0.3 mg/dL (0.0-0.2) H 05/13/18 08:37 Indirect Bilirubin 1.3 mg/dL (0.0-1.2) H 05/13/18 08:37 Globulin 4.3 g/dL (2.4-3.5) H 05/13/18 08:37 Albumin/Globulin Ratio 1.0 (1.1-2.2) L 05/13/18 08:37 Lipase < 3 Units/L (11-82) L 05/13/18 08:37 Urine Color Rogers (Yellow) A 05/13/18 08:30 Urine Protein 100 mg/dL (Neg-Trace) H 05/13/18 08:30 Urine Nitrite Positive (Negative) A 05/13/18 08:30 Urine Bilirubin Small (Negative) H 05/13/18 08:30 Urine Urobilinogen 2.0 mg/dL (Normal) H 05/13/18 08:30 Ur Leukocyte Esterase Trace (Negative) H 05/13/18 08:30 Urine Microscopic WBC 3-5 per hpf (0-3) H 05/13/18 08:30 Ur Squamous Epith Cells Many per lpf (None-Few) H 05/13/18 08:30 Ur Culture Indicated? NO. (NO) A 05/13/18 08:30 - Microbiology Findings Microbiology Findings: Microbiology, Last 48 Hours 05/13/18 08:37 Blood Culture - Preliminary Peripheral Venipuncture Culture is incubating and being continuously monitored for growth. Final report to follow. 05/13/18 08:35 Blood Culture - Preliminary Peripheral Venipuncture Culture is incubating and being continuously monitored for growth. Final report to follow. 05/13/18 08:43 Influenza Types A,B Antigen - Final Nasopharyngeal - Clinical Findings Intake & Output: Intake & Output 05/12/18 05/13/18 05/13/18 23:59 07:59 15:59 Intake Total 1000 / 1000 Balance 1000 / 1000 Weight 90.083 kg
[2018-05-13 12:07] LABS: Creatine Kinase 145 Units/L (30-223)
[2018-05-13] MEDS ORDERED: methylPREDNISolone 125 MG/2 ML VIAL IVP ONE (12:59)
[2018-05-13] MEDS ORDERED: Naloxone 0.4 MG/ML INJ IVP PRN (13:49)
[2018-05-13] MEDS ORDERED: Albuterol 2.5 MG/3 ML NEBULIZER IH PRN (13:52)
[2018-05-13 14:00] LABS: INR 1.4; Prothrombin Time 15.6 Seconds (9.4-12.1)
--- NOTE | 2018-05-13 14:13 | Electrocardiograph Report ---
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
--- NOTE | 2018-05-13 14:13 | Electrocardiograph Report ---
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
[2018-05-13] MEDS: traMADol 50 MG TABLET PO PRN (14:16)
[2018-05-13 15:37] LABS: Adenovirus Not Detected (Not Detect); Bordetella Pertussis Not Detected (Not Detect); Chlamydophila pneumoniae Not Detected (Not Detect); Coronavirus 229E Not Detected (Not Detect); Coronavirus HKU1 Not Detected (Not Detect); Coronavirus NL63 Not Detected (Not Detect); Coronavirus OC43 Not Detected (Not Detect); Human Metapneumovirus Not Detected (Not Detect); Human Rhinovirus/Enterovirus Not Detected (Not Detect); Influenza A Subtype 2009 H1 Not Detected (Not Detect); Influenza A Untypeable Not Detected (Not Detect); Influenza B Not Detected (Not Detect); Mycoplasma pneumoniae Not Detected (Not Detect); Parainfluenza Virus 1 Not Detected (Not Detect); Parainfluenza Virus 2 Not Detected (Not Detect); Parainfluenza Virus 3 Not Detected (Not Detect); Parainfluenza Virus 4 Not Detected (Not Detect); Respiratory Syncytial Virus Not Detected (Not Detect)
[2018-05-13] MEDS: Budesonide/Formoterol 160/4.5 1 PUFF INH IH SCH ×2 (15:39→22:37)
[2018-05-13] MEDS: MethylPREDNISolone 40 MG/ML VIAL IVP SCH (16:02)
[2018-05-13] MEDS: Ringers Solution, Lactated 1,000 ML IVC SCH (16:02)
[2018-05-13] MEDS: Ipratropium/Albuterol Neb 3 ML IH SCH ×2 (16:11→22:37)
[2018-05-13] MEDS ORDERED: Ondansetron 4 MG/2 ML VIAL IVP PRN (17:34)
--- NOTE | 2018-05-13 17:45 | Internal Med History&Physical ---
Date of Encounter: 05/13/18 Time of Encounter: 17:35 Internal Medicine - H&P: HPI Chief complaint: fever/chills, productive cough Plans for Post Hospital Care: Home History of present illness: Mr. Rodriguez is a 37 year old male past medical history of asthma and GERD. Patient presented to the due to 5 days history of fever/chills, productive cough, nausea and vomiting. Patient reports he started to feel sick on Wednesday which he described as having generalized weakness, having fever/chills, associated with productive cough of a clear sputum at first but now it is a brown color, also reported feeling nauseated, and having multiples vomiting episodes. At first he thought he was having the flu and try to wait things out at home, but his symptoms seemed to be getting worse and today on the way to work he started vomiting, which he described as dark, with possible blood in it. For which he decided to come to the ED. Denies weight lost, but reports poor PO intake in the past couple of days due to nausea. In the ED a CTA of chest was done and the patient was found to have a left upper lobe cavitary lesion and lymphadenopaty. For which the Hospitalist team was called for coordination of care. He reports that about 3 years ago he had a simmilar CT of the chest finding and a Bronchoscopy was attempted for was not successful as he was not sedated and kept coughing. At that time he was discharged home with steroid. Past Med Surg Social Fam HX - Past Medical History Medical history: asthma, GERD, other Additional medical history: 3 ulcers in esophagus Psychiatric history: no psych history - Past Surgical History Surgical History: no surgical history - Social History Smoking Status: Never smoker Smokeless Tobacco Status: No Alcohol use: occasionally Drug use: none - Family History Mother Hx Family Cardiac Disorders: Yes (OK) Hx Family Endocrine Disorder: Yes (DM II) Hx Family Neurologic Disorders: Yes (stroke) Internal Medicine - H&P: Meds Albuterol Sulfate [Albuterol Inhaler] 2 puff PO Q4-6H PRN 09/08/16 [History] Loratadine [Allergy Relief] 10 mg PO DAILY 09/08/16 [History] Omeprazole [PriLOSEC] 20 mg PO DAILY 09/08/16 [History] Albuterol Neb [Proventil Neb] 2.5 mg IH Q4H PRN 12/11/16 [History] Fluticasone/Salmeterol [Airduo Respiclick 113-14 Mcg] 1 puff IH BID 05/13/18 [History] Allergy/AdvReac Type Severity Reaction Status Date / Time bismuth subsalicylate Allergy Hives Verified 05/13/18 15:38 [From Pepto-Bismol] All Systems PM: A 10-system review of systems was performed and is negative for pertinent findings except as documented above in the HPI. - Constitutional Constitutional: chills, fever(s), weakness - EENT Eyes: no blurry vision - Cardiovascular Cardiovascular ROS IM: no chest pain, no edema, no lightheadedness, no palpitations - Respiratory Respiratory: cough, wheezing, chest congestion, change in phlegm color, pain with cough, no hemoptysis - Gastrointestinal Gastrointestinal: no abdominal pain - Genitourinary Genitourinary ROS male: no dysuria - Musculoskeletal Musculoskeletal ROS IM: muscle weakness - Integumentary Integumentary IM: no sores - Neurological Neurological ROS: no headache(s) - Psychiatric Psychiatric: no anxiety, no hopelessness - Endocrine Endocrine IM: no polydipsia - Hematologic/Lymphatic Hematologic/Lymphatic: no easy bleeding, no lymphadenopathy - Allergic/Immunologic Allergic/Immunologic: no GI upset with certain foods - Constitutional Vitals: Temp Pulse Resp BP Pulse Ox 101.5 F H 124 16 123/75 98 05/13/18 15:26 05/13/18 15:26 05/13/18 16:11 05/13/18 15:26 05/13/18 16:11 Exam: Vitals: reviewed General: Alert and oriented x4. In mild distress due to nausea Skin: Normal color, no rash, no lesions. HEENT: EOM, pupils equal, round and reactive. Cardiovascular: RRR, normal S1 & S2, no rubs, murmurs or gallops. Lungs: scattered b/l expiratory wheezes, no crackles. Abdomen: Soft, non-tender, no rigidity. Extremities: No deformity, no edema or tenderness, no joint swelling or clubbing. Neurological: Normal cognition and motor skills. Rest of the physical exam is non contributory Internal Med - H&P Results - Labs CBC & Chem 7: 05/13/18 08:37 05/13/18 08:37 Labs: Short CBC 05/13/18 Range/Units 08:37 WBC 19.4 H (4.3-11.1) K/mcL Hgb 15.1 (12.9-16.9) g/dL Hct 45.3 (37.5-50.1) % Plt Count 265 (140-400) K/mcL Neutrophils # 16.4 H (1.6-8.9) K/mcL BMP 05/13/18 08:37 Sodium 134 L Potassium 4.4 Chloride 98 Carbon Dioxide 24 BUN 21 H Creatinine 1.02 Glucose 118 H Calcium 9.9 Cardiac Enzymes 05/13/18 Range/Units 08:37 Troponin I 0.03 (< 0.04) ng/mL Liver Function 05/13/18 Range/Units 08:37 Total Bilirubin 1.6 H (0.3-1.0) mg/dL Direct Bilirubin 0.3 H (0.0-0.2) mg/dL AST 21 (13-39) Units/L ALT 30 (7-52) Units/L Alkaline Phosphatase 103 (34-104) Units/L Albumin 4.4 (3.5-5.7) g/dL Urine 05/13/18 Range/Units 08:30 Urine Color [place] A (Yellow) Urine Clarity Clear (Clear) Urine pH 5.0 (5.0-8.0) pH Units Ur Specific [place] 1.025 (1.010-1.025) Urine Protein 100 H (Neg-Trace) mg/dL Urine Glucose (UA) Normal (Normal) mg/dL - ABG Interpretation ABG results: 05/13/18 09:01 VBG pH 7.39 VBG pCO2 39 L VBG pO2 64 H VBG HCO3 24 - Impressions ITS Impressions Chest CTA 05/13/18 00:00 IMPRESSION: Cavitary lesion in the left upper lobe with associated infiltrate as well as extensive mediastinal and hilar lymphadenopathy. Differential diagnosis would include infectious etiologies although a neoplastic etiology cannot be excluded. Bilateral subpleural nodules are also identified and infectious and neoplastic etiologies are considered. Negative for pulmonary embolus Negative for aortic dissection D/ / Koko Allen MD / Koko Allen MD Interpreting Provider: Koko Allen MD Dissection 05/13/18 08:07 IMPRESSION: Cavitary lesion in the left upper lobe with associated infiltrate as well as extensive mediastinal and hilar lymphadenopathy. Differential diagnosis would include infectious etiologies although a neoplastic etiology cannot be excluded. Bilateral subpleural nodules are also identified and infectious and neoplastic etiologies are considered. Negative for pulmonary embolus Negative for aortic dissection D/ / Koko Allen MD / Koko Allen MD Interpreting Provider: Koko Allen MD - Diagnostic Studies CT scan - chest Status: image reviewed by me (left upper lobe cavitary lession) - Assessment and plan (1) Cavitary lesion of lung Current Visit: Yes Status: Acute Assessment and plan: unclear etiology possible vasculitis in the nature or recurrent cavitation vs r/o TB. Vs pneumonia Plan Airbone isolation AFB x3 Pulmonology consulted for possible Bronch Pulm recommended to start the patient on methyprednisolone 60mg/IV daily sputum culture and gram stain ordered Urine for atypical organism started empirically on piperacillin/tazobactam 3.375mg/IV Q8HRs plus vancomycin per pharmacy dosing On bronchodilators PRN. Respiratory panel. (2) Nausea & vomiting Current Visit: Yes Status: Acute Assessment and plan: patient reports vomiting with possible blood in it. Plan NPO NG lavage will start Ondansetron 4mg/IV Q4HR PRN PPI 40mg/IV daily started on gentle IV hydration. Qualifiers: Vomiting type: cyclical vomiting Vomiting Intractability: unspecified Qualified Code(s): G43.A0 - Cyclical vomiting, not intractable (3) Asthma Current Visit: Yes Status: Chronic Assessment and plan: Patient started on bronchodilators PRN. Qualifiers: Asthma severity: unspecified severity Asthma persistence: unspecified Asthma complication type: uncomplicated Qualified Code(s): J45.909 - Unspecified asthma, uncomplicated (4) GERD (gastroesophageal reflux disease) Current Visit: Yes Status: Chronic Assessment and plan: started on Pantoprazole 40mg/IV daily Qualifiers: Esophagitis presence: esophagitis presence not specified Qualified Code(s): K21.9 - Gastro-esophageal reflux disease without esophagitis (5) DVT prophylaxis Current Visit: Yes Status: Chronic Assessment and plan: No chemical DVT prophylaxis until NG lavage resulted. - Time Spent With Patient Total time spent is greater than 50% in coordination of care (as documented) at patient's floor/unit and/or counseling patient: Greater than 35 minutes (45)
[2018-05-13] MEDS: Piperacillin/Tazobactam 3.375 GM in 0.9 % Sodium Chloride Mini Bag 100 ML IVPB SCH (18:05)
[2018-05-13 18:17] LABS: Amphetamine Screen,Urine Negative ng/mL (Cutoff=1000); Barbiturate Screen,Urine Negative ng/mL (Cutoff=200); Benzodiazepines Screen,Urine Negative ng/mL (Cutoff=200); Cannabinoid Screen,Urine Negative ng/mL (Cutoff = 50); Cocaine Screen,Urine Negative ng/mL (Cutoff= 300); Opiate Screen,Urine Negative ng/mL (Cutoff=300); Phencyclidine Screen,Urine Negative ng/mL (Cutoff=25)
[2018-05-14] MEDS: Piperacillin/Tazobactam 3.375 GM in 0.9 % Sodium Chloride Mini Bag 100 ML IVPB SCH ×3 (01:11→17:58)
[2018-05-14] MEDS: Ipratropium/Albuterol Neb 3 ML IH SCH ×4 (04:28→22:06)
[2018-05-14 04:57] LABS: Hematocrit 37.9 % (37.5-50.1); Mean Corpuscular Hemoglobin 29.2 pg (28.0-33.3); Mean Corpuscular Volume 88.6 fL (83.0-100.0); Mean Platelet Volume 10.2 fL (9.4-12.4); Platelet Count 233 K/mcL (140-400); Red Blood Count 4.28 M/mcL (4.19-5.50); Red Cell Distribution Width 12.5 % (11.5-14.5)
[2018-05-14 04:58] LABS: Hemoglobin 12.5 g/dL (12.9-16.9)
[2018-05-14 05:13] LABS: BUN/Creatinine Ratio 21 (6-26); Blood Urea Nitrogen 19 mg/dL (6-20); Carbon Dioxide 22 mEq/L (23-29); Chloride 106 mEq/L (98-107); Glucose 261 mg/dL (70-105); Magnesium 2.6 mg/dL (1.6-2.6); Osmolality,Calculated 291 (280-300); Phosphorous 2.1 mg/dL (2.7-4.5); Sodium 135 mEq/L (136-145); eGFR For Non-African Americans > 60 (> 60)
[2018-05-14] MEDS: Ringers Solution, Lactated 1,000 ML IVC SCH (05:33)
--- NOTE | 2018-05-14 06:52 | Pulmonology Progress Note ---
Date of Encounter: 05/14/18 Time of Encounter: 06:52 Assessment and Plan (1) Cavitary lesion of lung Current Visit: Yes Status: Acute 37 year old gentleman with a previous history cavitary lung lesions here with new left upper lobe lingular lung mass with cavitation. I suspect this is all secondary to vasculitis it as of yet has not been diagnosed although I have a strong suspicion for eosinophilic granulomatosis with polyangiitis despite the negative ANCA in the past. He underwent bronchoscopy today which was uneventful he had BAL of the lingula which was noted to have a mucous plug as well as narrowing endoscopic and fluoroscopy guided brushings were obtained and he was tolerating the procedure just fine. Once AFB is negative off BAL he can be taken off airborne isolation as noted yesterday to have very low suspicion that the patient has mycobacterium tuberculosis. Agree with continuation of antibiotics systemic glucocorticoids and nebulized breathing treatments. I suspect patient will need surgical lung biopsy the timing of this will be discussed the prior to discharge. Pulmonary will continue to follow Do not hesitate to call me with any questions or concerns Darren Clement [phone] (2) Moderate persistent asthma Current Visit: No Status: Chronic Qualifiers: Asthma complication type: uncomplicated Qualified Code(s): J45.40 - Moderate persistent asthma, uncomplicated Subjective Principal diagnosis: Lung Mass Interval history: Mr. Rodriguez had an uneventful night no further episodes of hemoptysis his been noth ing by mouth at midnight Objective PUL Vital signs: Last Vital Signs Temp 98.8 F 05/14/18 04:00 Pulse 81 05/14/18 04:00 Resp 16 05/14/18 04:28 BP 144/92 05/14/18 04:00 Pulse Ox 93 05/14/18 04:28 General appearance: no acute distress Eyes: nonicteric Neck: supple Auscultation: bilateral: wheezes Cardiovascular: regular rate and rhythm Gastrointestinal: normoactive bowel sounds Integumentary: normal Extremities: no cyanosis, no edema, no clubbing Musculoskeletal: no deformities normal mental status, non-focal exam mood appropriate Results - Laboratory Findings CBC and BMP: 05/14/18 04:26 05/14/18 04:26 PT/INR, D-dimer PT 15.6 Seconds (9.4-12.1) H 05/13/18 13:27 Abnormal lab findings: Abnormal lab results WBC 16.0 K/mcL (4.3-11.1) H 05/14/18 04:26 Hgb 12.5 g/dL (12.9-16.9) L D 05/14/18 04:26 Neutrophils # 16.4 K/mcL (1.6-8.9) H 05/13/18 08:37 Monocytes # 1.9 K/mcL (0.0-1.3) H 05/13/18 08:37 PT 15.6 Seconds (9.4-12.1) H 05/13/18 13:27 VBG pCO2 39 mmHg (41-51) L 05/13/18 09:01 VBG pO2 64 mmHg (25-50) H 05/13/18 09:01 Sodium 135 mEq/L (136-145) L 05/14/18 04:26 Carbon Dioxide 22 mEq/L (23-29) L 05/14/18 04:26 Glucose 261 mg/dL (70-105) H 05/14/18 04:26 Phosphorus 2.1 mg/dL (2.7-4.5) L 05/14/18 04:26 Total Bilirubin 1.6 mg/dL (0.3-1.0) H 05/13/18 08:37 Direct Bilirubin 0.3 mg/dL (0.0-0.2) H 05/13/18 08:37 Indirect Bilirubin 1.3 mg/dL (0.0-1.2) H 05/13/18 08:37 Globulin 4.3 g/dL (2.4-3.5) H 05/13/18 08:37 Albumin/Globulin Ratio 1.0 (1.1-2.2) L 05/13/18 08:37 Lipase < 3 Units/L (11-82) L 05/13/18 08:37 Urine Color [place] (Yellow) A 05/13/18 08:30 Urine Protein 100 mg/dL (Neg-Trace) H 05/13/18 08:30 Urine Nitrite Positive (Negative) A 05/13/18 08:30 Urine Bilirubin Small (Negative) H 05/13/18 08:30 Urine Urobilinogen 2.0 mg/dL (Normal) H 05/13/18 08:30 Ur Leukocyte Esterase Trace (Negative) H 05/13/18 08:30 Urine Microscopic WBC 3-5 per hpf (0-3) H 05/13/18 08:30 Ur Squamous Epith Cells Many per lpf (None-Few) H 05/13/18 08:30 Ur Culture Indicated? NO. (NO) A 05/13/18 08:30 - Microbiology Findings Microbiology Findings: Microbiology, Last 48 Hours 05/13/18 Unknown Streptococcus pneumoniae Antigen (M - Final Urine,Random-Not Preferred 05/13/18 Unknown Sputum Culture - Preliminary Sputum 05/13/18 08:37 Blood Culture - Preliminary Peripheral Venipuncture Culture is incubating and being continuously monitored for growth. Final report to follow. 05/13/18 08:35 Blood Culture - Preliminary Peripheral Venipuncture Culture is incubating and being continuously monitored for growth. Final report to follow. 05/13/18 08:43 Influenza Types A,B Antigen - Final Nasopharyngeal - Diagnostic Findings Chest x-ray: report reviewed, image reviewed CT scan - chest: report reviewed, image reviewed - Clinical Findings Intake & Output: Intake & Output 05/13/18 05/13/18 05/14/18 15:59 23:59 07:59 Intake Total 2350 / 2350 300 / 300 1400 / 1400 Output Total 0 / 0 1000 / 1000 Balance 2350 / 2350 300 / 300 400 / 400 Weight 92 kg Consult Discharge Plan - Plan Referrals: Rosa Gifford MD [Primary Care Provider] -
[2018-05-14] MEDS: Pantoprazole 40 MG VIAL IVP SCH (08:05)
--- NOTE | 2018-05-14 08:21 | Anesthesia Evaluation PreOp ---
Date of Encounter: 05/14/18 Time of Encounter: 09:20 - Past History Planned Operation: BRONCHOSCOPY, BAL, FLUORO GUIDED Pulmonary History: Asthma (SEVERE), Other (LEFT UPPER LOBE CASVITARY LESION, NEGATIVE SEROLOGY, SIMILAR HISTORY 09/2016 & TB WORKUP NEGATIVE THEN. PATIENT IS ON DROPLET ISOLATION PRECAUTION) [employer] History: Denies Any Significant HX Other Medical History: GERD Alcohol Use: occasionally Drug use: none Medications and Allergies Albuterol Sulfate [Albuterol Inhaler] 2 puff PO Q4-6H PRN 09/08/16 [History] Loratadine [Allergy Relief] 10 mg PO DAILY 09/08/16 [History] Omeprazole [PriLOSEC] 20 mg PO DAILY 09/08/16 [History] Albuterol Neb [Proventil Neb] 2.5 mg IH Q4H PRN 12/11/16 [History] Fluticasone/Salmeterol [Airduo Respiclick 113-14 Mcg] 1 puff IH BID 05/13/18 [History] Allergy/AdvReac Type Severity Reaction Status Date / Time bismuth subsalicylate Allergy Hives Verified 05/13/18 15:38 [From Pepto-Bismol] - Meds/Allergy Pre-op Review Medications Reviewed: Yes Allergies Reviewed: Yes Beta Blockers on Current Med List: No Anesthesia Results - Labs 05/14/18 04:26 05/14/18 04:26 Laboratory Tests 05/13/18 05/14/18 08:37 04:26 Est GFR ( Amer) > 60 Calcium 9.0 Phosphorus 2.1 L Magnesium 2.6 Total Bilirubin 1.6 H Indirect Bilirubin 1.3 H Serum Total Protein 8.7 Albumin 4.4 Globulin 4.3 H Anesthesia Exam Vital Signs/O2 Sat/Glucose, Most Recent Temp Pulse Resp BP Pulse Ox 98.1 F 99 18 135/85 95 05/14/18 08:03 05/14/18 08:03 05/14/18 08:03 05/14/18 08:03 05/14/18 08:03 Weight: 92 KG - BMI 30 NPO (# of Hours): >8 - HEENT Mallampati: I Teeth: Normal Oral Opening: Greater than 3 - Cardiac Rhythm: Regular - Pulmonary Breath Sounds: bilateral Clear Respiratory Effort: Symmetrical Anesthesia Assess/Plan ASA Score: 3 Anesthetic Plan: General, Precautions Monitoring Plan: Standard Monitors Recovery Plan: PACU (TO BE RECOVERED IN ENDO) Anes Supervising Prov Stmt: PROCEDURE TO BE PERFORMED IN NEGATIVE PRESSURE ROOM. POSSIBLE POSTOPERATIVE MECH VENTILATION.
[2018-05-14] MEDS ORDERED: Propofol 500 MG/50 ML INFUS..BTL ONE (09:52)
[2018-05-14] MEDS ORDERED: *HR* Succinylcholine 200 MG/10 ML VIAL IVP ONE (09:55)
[2018-05-14] MEDS ORDERED: Dexamethasone 4 MG/ML VIAL ONE (09:55)
[2018-05-14] MEDS ORDERED: Lidocaine -MPF 2% 2 ML VIAL ONE (09:55)
[2018-05-14] MEDS ORDERED: Lidocaine -MPF 4% 5 ML AMPUL ONE (09:55)
[2018-05-14] MEDS ORDERED: Ketamine *HR* 500 MG/10 ML MDV ONE (09:56)
[2018-05-14] MEDS ORDERED: *HR* Propofol 200 MG/20 ML VIAL IVP ONE (09:56)
--- NOTE | 2018-05-14 09:56 | Internal Med Progress Note ---
Hospitalist Progress Note - Encounter Date of Encounter: 05/14/18 Time of Encounter: 09:54 - Subjective Interval History: I have seen and evaluated the patient at bedside. He reports the nausea and the vomiting have stopped. reports productive cough, but denies seeing blood in the sputum. denies chest pain or abdominal pain. - Exam Vitals: Temp Pulse Resp BP Pulse Ox 98.1 F 99 18 135/85 94 05/14/18 08:03 05/14/18 08:03 05/14/18 08:03 05/14/18 08:03 05/14/18 08:15 Exam: Vitals: reviewed General: Alert and oriented x4. In mild distress due to persistent cough Cardiovascular: RRR, normal S1 & S2, no rubs, murmurs or gallops. Lungs: CTA b/l, no wheezes or crackles. Abdomen: Soft, non-tender, no rigidity. Extremities: No deformity, no edema or tenderness, no joint swelling or clubbing. Neurological: Normal cognition and motor skills. Rest of the physical exam is non contributory - Assessment and Plan (1) Cavitary lesion of lung Current Visit: Yes Status: Acute Assessment and Plan: Sputum culture: gram positive cocci on preliminary report. patient scheduled for Bronchoscopy today. continue bronchodilators and methylprednisolone per pulm recommendations. On Symbicort. continue vancomycin per pharmacy dosing plus piperacillin/tazobactam 3.375mg/IV Q8HRs. Pending AFB report (2) Nausea & vomiting Current Visit: Yes Status: Resolved Assessment and Plan: will discontinue IV fluids, and Ondanstron when patient starts tolerating diet. (3) Asthma Current Visit: Yes Status: Chronic Assessment and Plan: not exacerbated. Patient is on a scheduled bronchodilators. (4) GERD (gastroesophageal reflux disease) Current Visit: Yes Status: Chronic Assessment and Plan: Continue pantoprazole 40 mg DVT Prophylaxis: We will restart heparin subcutaneous. - Summary of Assessment and Plan Summary of Assessment and Plan: Patient to remain in the hospital due to cavitary lung lesion, scheduled for a bronchoscopy. - Time Spent with Patient Total time spent is greater than 50% in coordination of care (as documented) at patient's floor/unit and/or counseling patient: Greater than 35 minutes (40) Plan of Care Discussed with: patient (his and the nurse.) Internal Medicine: Result - Labs CBC & Chem 7: 02/09/19 04:26 05/14/18 04:26 Labs: Short CBC 05/14/18 Range/Units 04:26 WBC 16.0 H (4.3-11.1) K/mcL Hgb 12.5 L D (12.9-16.9) g/dL Hct 37.9 (37.5-50.1) % Plt Count 233 (140-400) K/mcL BMP 05/13/18 05/14/18 08:37 04:26 Sodium 134 L 135 L Potassium 4.4 4.0 Chloride 98 106 Carbon Dioxide 24 22 L BUN 21 H 19 Creatinine 1.02 0.92 Glucose 118 H 261 H Calcium 9.9 9.0 Liver Function 05/13/18 Range/Units 08:37 Total Bilirubin 1.6 H (0.3-1.0) mg/dL Direct Bilirubin 0.3 H (0.0-0.2) mg/dL AST 21 (13-39) Units/L ALT 30 (7-52) Units/L Alkaline Phosphatase 103 (34-104) Units/L Albumin 4.4 (3.5-5.7) g/dL - ABG Interpretation ABG results: PT/INR, D-dimer PT 15.6 Seconds (9.4-12.1) H 05/13/18 13:27 - Impressions Impressions Chest CTA 05/13/18 00:00 IMPRESSION: Cavitary lesion in the left upper lobe with associated infiltrate as well as extensive mediastinal and hilar lymphadenopathy. Differential diagnosis would include infectious etiologies although a neoplastic etiology cannot be excluded. Bilateral subpleural nodules are also identified and infectious and neoplastic etiologies are considered. Negative for pulmonary embolus Negative for aortic dissection D/ / Koko Allen MD / Koko Allen MD Interpreting Provider: Koko Allen MD Dissection 05/13/18 08:07 IMPRESSION: Cavitary lesion in the left upper lobe with associated infiltrate as well as extensive mediastinal and hilar lymphadenopathy. Differential diagnosis would include infectious etiologies although a neoplastic etiology cannot be excluded. Bilateral subpleural nodules are also identified and infectious and neoplastic etiologies are considered. Negative for pulmonary embolus Negative for aortic dissection D/ / Koko Allen MD / Koko Allen MD Interpreting Provider: Koko Allen MD Consult Discharge Plan - Plan Referrals: Rosa Gifford MD [Primary Care Provider] - (2) Nausea & vomiting Qualifiers: Vomiting type: cyclical vomiting Vomiting Intractability: unspecified Qualified Code(s): G43.A0 - Cyclical vomiting, not intractable (3) Asthma Qualifiers: Asthma severity: unspecified severity Asthma persistence: unspecified Asthma complication type: uncomplicated Qualified Code(s): J45.909 - Unspecified asthma, uncomplicated (4) GERD (gastroesophageal reflux disease) Qualifiers: Esophagitis presence: esophagitis presence not specified Qualified Code(s): K21.9 - Gastro-esophageal reflux disease without esophagitis
[2018-05-14] MEDS: Budesonide/Formoterol 160/4.5 1 PUFF INH IH SCH ×2 (10:40→22:06)
[2018-05-14 14:06] LABS: Source of Body Fluid BAL LUL #2
[2018-05-14 15:20] LABS: Appearance of Body Fluid Slightly Hazy (Clear); Source of Body Fluid LUL BAL #1 LUL BAL #; Volume of Body Fluid 11 mL
[2018-05-14 15:21] LABS: Appearance of Body Fluid Cloudy (Clear); Volume of Body Fluid 16 mL
[2018-05-14] MEDS: MethylPREDNISolone 40 MG/ML VIAL IVP SCH (17:57)
[2018-05-14] MEDS: traMADol 50 MG TABLET PO PRN (20:05)
[2018-05-15] MEDS: Piperacillin/Tazobactam 3.375 GM in 0.9 % Sodium Chloride Mini Bag 100 ML IVPB SCH ×3 (01:57→19:11)
[2018-05-15] MEDS: Ipratropium/Albuterol Neb 3 ML IH SCH ×4 (05:01→22:14)
--- NOTE | 2018-05-15 06:44 | Pulmonology Progress Note ---
Date of Encounter: 05/15/18 Time of Encounter: 06:44 Assessment and Plan (1) Cavitary lesion of lung Current Visit: Yes Status: Acute 37 year old gentleman with a previous history cavitary lung lesions here with new left upper lobe lingular lung mass with cavitation. I suspect this is all secondary to vasculitis it as of yet has not been diagnosed although I have a strong suspicion for eosinophilic granulomatosis with polyangiitis despite the negative ANCA in the past. He underwent bronchoscopy today which was uneventful he had BAL of the lingula which was noted to have a mucous plug as well as narrowing endoscopic and fluoroscopy guided brushings were obtained and he was tolerating the procedure just fine. Of note a polyp was identified close to the true vocal cords Recs: Once AFB is negative off BAL(Suspect today) he can be taken off airborne isolation as noted I have very low suspicion that the patient has mycobacterium tuberculosis. 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 Vasculitis w/u has been started and f/u outpatient I suspect patient will need surgical lung biopsy the timing of this will be discussed in clinic 1-2 weeks at discharge Repeat CT scan in 4-6 weeks Pulmonary will f/u on Bronch results. Do not hesitate to call me with any questions or concerns Darren Clement [phone] (2) Moderate persistent asthma Current Visit: No Status: Chronic Qualifiers: Asthma complication type: uncomplicated Qualified Code(s): J45.40 - Moderate persistent asthma, uncomplicated (3) Vocal cord polyp Current Visit: Yes Status: Acute Subjective Principal diagnosis: Lung Mass Interval history: Mr. Rodriguez had an uneventful night no further episodes of hemoptysis he is still coughing up some phlegm however. No untoward effects status post bronchoscopy Objective PUL Vital signs: Last Vital Signs Temp 98.8 F 05/14/18 20:35 Pulse 60 05/14/18 20:35 Resp 16 05/15/18 05:01 BP 156/93 05/14/18 20:35 Pulse Ox 91 05/15/18 05:01 General appearance: no acute distress Eyes: nonicteric ENT: oropharynx moist Neck: supple Effort: normal Auscultation: bilateral: clear Cardiovascular: regular rate and rhythm Gastrointestinal: normoactive bowel sounds, soft, non-tender Integumentary: normal Extremities: no cyanosis, no edema, no clubbing Musculoskeletal: no deformities normal mental status, non-focal exam mood appropriate Results - Laboratory Findings CBC and BMP: 05/15/18 07:15 05/15/18 07:15 PT/INR, D-dimer PT 15.6 Seconds (9.4-12.1) H 05/13/18 13:27 Abnormal lab findings: Abnormal lab results WBC 16.0 K/mcL (4.3-11.1) H 05/14/18 04:26 Hgb 12.5 g/dL (12.9-16.9) L D 05/14/18 04:26 Neutrophils # 16.4 K/mcL (1.6-8.9) H 05/13/18 08:37 Monocytes # 1.9 K/mcL (0.0-1.3) H 05/13/18 08:37 PT 15.6 Seconds (9.4-12.1) H 05/13/18 13:27 VBG pCO2 39 mmHg (41-51) L 05/13/18 09:01 VBG pO2 64 mmHg (25-50) H 05/13/18 09:01 Sodium 135 mEq/L (136-145) L 05/14/18 04:26 Carbon Dioxide 22 mEq/L (23-29) L 05/14/18 04:26 Glucose 261 mg/dL (70-105) H 05/14/18 04:26 Phosphorus 2.1 mg/dL (2.7-4.5) L 05/14/18 04:26 Total Bilirubin 1.6 mg/dL (0.3-1.0) H 05/13/18 08:37 Direct Bilirubin 0.3 mg/dL (0.0-0.2) H 05/13/18 08:37 Indirect Bilirubin 1.3 mg/dL (0.0-1.2) H 05/13/18 08:37 Globulin 4.3 g/dL (2.4-3.5) H 05/13/18 08:37 Albumin/Globulin Ratio 1.0 (1.1-2.2) L 05/13/18 08:37 Lipase < 3 Units/L (11-82) L 05/13/18 08:37 Urine Color Wirt (Yellow) A 05/13/18 08:30 Urine Protein 100 mg/dL (Neg-Trace) H 05/13/18 08:30 Urine Nitrite Positive (Negative) A 05/13/18 08:30 Urine Bilirubin Small (Negative) H 05/13/18 08:30 Urine Urobilinogen 2.0 mg/dL (Normal) H 05/13/18 08:30 Ur Leukocyte Esterase Trace (Negative) H 05/13/18 08:30 Urine Microscopic WBC 3-5 per hpf (0-3) H 05/13/18 08:30 Ur Squamous Epith Cells Many per lpf (None-Few) H 05/13/18 08:30 Ur Culture Indicated? NO. (NO) A 05/13/18 08:30 Fluid Appearance Cloudy (Clear) A 05/14/18 14:04 - Microbiology Findings Microbiology Findings: Microbiology, Last 48 Hours 05/14/18 13:43 Respiratory Culture - Preliminary Left Upper Lobe Lung 05/14/18 13:43 Respiratory Culture - Preliminary Left Upper Lobe Lung 05/14/18 13:43 Respiratory Culture - Preliminary Left Upper Lobe Lung 05/13/18 Unknown Acid Fast Stain - Final Sputum 05/13/18 Unknown Streptococcus pneumoniae Antigen (M - Final Urine,Random-Not Preferred 05/13/18 Unknown Sputum Culture - Preliminary Sputum 05/13/18 08:37 Blood Culture - Preliminary Peripheral Venipuncture Culture is incubating and being continuously monitored for growth. Final report to follow. 05/13/18 08:35 Blood Culture - Preliminary Peripheral Venipuncture Culture is incubating and being continuously monitored for growth. Final report to follow. 05/13/18 08:43 Influenza Types A,B Antigen - Final Nasopharyngeal - Clinical Findings Intake & Output: Intake & Output 05/14/18 05/14/18 05/15/18 15:59 23:59 07:59 Intake Total 690 / 690 1400 / 1400 Output Total 800 / 800 1000 / 1000 1450 / 1450 Balance -800 / -800 -310 / -310 -50 / -50 Consult Discharge Plan - Plan Referrals: Rosa Gifford MD [Primary Care Provider] -
[2018-05-15] MEDS ORDERED: Aminoglycoside Consult 1 EACH MC ONE (07:44)
[2018-05-15 08:00] LABS: Basophils % 0.1 %; Hematocrit 35.6 % (37.5-50.1); Hemoglobin 11.7 g/dL (12.9-16.9); Immature Granulocytes % 2.2 % (0-4); Lymphocytes # 0.7 K/mcL (0.6-4.6); Lymphocytes % 4.6 %; Mean Corpuscular HGB Conc 32.9 g/dL (31.6-35.5); Mean Corpuscular Hemoglobin 29.2 pg (28.0-33.3); Mean Corpuscular Volume 88.8 fL (83.0-100.0); Mean Platelet Volume 10.4 fL (9.4-12.4); Monocytes # 1.1 K/mcL (0.0-1.3); Monocytes % 6.8 %; Neutrophils # 13.9 K/mcL (1.6-8.9); Platelet Count 253 K/mcL (140-400); Red Blood Count 4.01 M/mcL (4.19-5.50); Red Cell Distribution Width 12.6 % (11.5-14.5); Segmented Neutrophils % 86.3 %
[2018-05-15 08:21] LABS: BUN/Creatinine Ratio 21 (6-26); Blood Urea Nitrogen 17 mg/dL (6-20); Calcium 8.5 mg/dL (8.6-10.3); Carbon Dioxide 22 mEq/L (23-29); Chloride 107 mEq/L (98-107); Glucose 231 mg/dL (70-105); Magnesium 2.5 mg/dL (1.6-2.6); Osmolality,Calculated 297 (280-300); Phosphorous 2.3 mg/dL (2.7-4.5); Potassium 3.9 mEq/L (3.5-5.1); Sodium 139 mEq/L (136-145); eGFR For Non-African Americans > 60 (> 60)
[2018-05-15] MEDS: Budesonide/Formoterol 160/4.5 1 PUFF INH IH SCH ×2 (10:19→22:14)
[2018-05-15] MEDS: traMADol 50 MG TABLET PO PRN (11:04)
[2018-05-15] MEDS: Pantoprazole 40 MG VIAL IVP SCH (11:05)
--- NOTE | 2018-05-15 12:29 | Internal Med Progress Note ---
Hospitalist Progress Note - Encounter Date of Encounter: 05/15/18 Time of Encounter: 12:27 - Subjective Interval History: I have seen and evaluated the patient at bedside. patient reports productive cough. reports pleuritic chest pain. denies shortness of breath - Exam Vitals: Temp Pulse Resp BP Pulse Ox 98.1 F 60 19 155/97 94 05/15/18 11:06 05/15/18 11:06 05/15/18 11:06 05/15/18 11:06 05/15/18 11:43 Exam: Vitals: reviewed General: Alert and oriented x4. In no acute distress Cardiovascular: RRR, normal S1 & S2, no rubs, murmurs or gallops. Lungs: CTA b/l, no wheezes or crackles. Abdomen: Soft, non-tender, no rigidity. NABS in all 4 quadrants Extremities: No edema Neurological: Normal cognition Rest of the physical exam is non contributory - Assessment and Plan (1) Cavitary lesion of lung Current Visit: Yes Status: Acute Assessment and Plan: s/p bronchoscopy. left upper lung respiratory culture: preliminary: bacteria observed, gram positive cocci. pending final report. AFB negative, discontinue isolation discontinue vancomycin continue Piperacillin/tazobactam 3.375mg/IV Q8HRs ID consulted for antibiotics management will continue methylprednisolone 60mg/IV daily on bronchodilators (2) Nausea & vomiting Current Visit: Yes Status: Resolved (3) Asthma Current Visit: Yes Status: Chronic Assessment and Plan: patient on bronchodilators prn (4) GERD (gastroesophageal reflux disease) Current Visit: Yes Status: Chronic Assessment and Plan: discontinue pantoprazole. will add omeprazole 40mg/PO daily (5) Hypertension Current Visit: Yes Status: Acute Assessment and Plan: BP ranging in the 150s SBP. patient does not have a history of HTN. will monitor BP. acute elevation on BP could be related to his respiratory problems (6) Vocal cord polyp Current Visit: Yes Status: Acute Assessment and Plan: outpatient ENT evaluation recommended (7) Hyperglycemia Current Visit: Yes Status: Acute Assessment and Plan: likely due to IV steroids. Lispro medium dose sliding scale ac added. DVT Prophylaxis: will add heparin subQ for dvt prophylaxis - Summary of Assessment and Plan Summary of Assessment and Plan: patient to remain in the hospital pending sputum sensitivity and specificity - Time Spent with Patient Total time spent is greater than 50% in coordination of care (as documented) at patient's floor/unit and/or counseling patient: Greater than 35 minutes (40) Plan of Care Discussed with: patient Internal Medicine: Result - Labs CBC & Chem 7: 05/15/18 07:15 05/15/18 07:15 Labs: Short CBC 05/15/18 Range/Units 07:15 WBC 16.1 H (4.3-11.1) K/mcL Hgb 11.7 L (12.9-16.9) g/dL Hct 35.6 L (37.5-50.1) % Plt Count 253 (140-400) K/mcL Neutrophils # 13.9 H (1.6-8.9) K/mcL BMP 05/15/18 07:15 Sodium 139 Potassium 3.9 Chloride 107 Carbon Dioxide 22 L BUN 17 Creatinine 0.81 Glucose 231 H Calcium 8.5 L - ABG Interpretation ABG results: PT/INR, D-dimer PT 15.6 Seconds (9.4-12.1) H 05/13/18 13:27 - VTE Documentation of Mechanical Device: Intermittent pneumatic compression device Consult Discharge Plan - Plan Referrals: Rosa Gifford MD [Primary Care Provider] - (2) Nausea & vomiting Qualifiers: Vomiting type: cyclical vomiting Vomiting Intractability: unspecified Qualified Code(s): G43.A0 - Cyclical vomiting, not intractable (3) Asthma Qualifiers: Asthma severity: unspecified severity Asthma persistence: unspecified Asthma complication type: uncomplicated Qualified Code(s): J45.909 - Unspecified asthma, uncomplicated (4) GERD (gastroesophageal reflux disease) Qualifiers: Esophagitis presence: esophagitis presence not specified Qualified Code(s): K21.9 - Gastro-esophageal reflux disease without esophagitis (5) Hypertension Qualifiers: Hypertension type: unspecified Qualified Code(s): I10 - Essential (primary) hypertension
[2018-05-15] MEDS ORDERED: Dextrose Gel 15 GM/37.5 ML TUBE PO PRN ×2 (12:37)
[2018-05-15] MEDS ORDERED: *HR* Dextrose 50 % in Water (Syg) 50 ML SYRINGE IVP PRN (12:37)
[2018-05-15] MEDS ORDERED: D5% in Water 1,000 ML IVC PRN (12:37)
[2018-05-15] MEDS: *HR* Heparin 5,000 UNIT/ML VIAL SQ SCH ×2 (15:55→20:20)
[2018-05-15] MEDS: Insulin LISPRO 300 UNITS/3 ML VIAL SQ SCH (15:56)
[2018-05-15] MEDS: MethylPREDNISolone 40 MG/ML VIAL IVP SCH (15:56)
[2018-05-15] MEDS ORDERED: *HR* HYDROcodone/Acet 5/325 mg TABLET PO ONE (19:19)
[2018-05-16] MEDS: Piperacillin/Tazobactam 3.375 GM in 0.9 % Sodium Chloride Mini Bag 100 ML IVPB SCH ×3 (02:52→18:03)
[2018-05-16] MEDS: Ipratropium/Albuterol Neb 3 ML IH SCH ×4 (03:47→21:56)
[2018-05-16] MEDS: *HR* Heparin 5,000 UNIT/ML VIAL SQ SCH ×3 (05:33→19:32)
[2018-05-16] MEDS: Insulin LISPRO 300 UNITS/3 ML VIAL SQ SCH ×3 (08:33→16:31)
--- NOTE | 2018-05-16 09:19 | Pulmonology Progress Note ---
<Hanna Olmos - Last Filed: 05/16/18 11:27> Date of Encounter: 05/16/18 Time of Encounter: 08:30 Assessment and Plan (1) Cavitary lesion of lung Current Visit: Yes Status: Acute Cavitary lesion of the left upper lung lingula with cavitation. Presented with hemoptysis now resolved. History of chronic sinusitis. BAL showed polyp in true vocal cords. 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 Rodriguez was seen at bedside this morning. He was eating his breakfast. He was comfortable in room air. There were no events overnight. He noted cough with deep inspiration. He denied fever, chills, nausea, emesis or chest pain. Objective PUL Vital signs: Last Vital Signs Temp 97.9 F 05/16/18 08:00 Pulse 69 05/16/18 08:00 Resp 16 05/16/18 08:00 BP 143/88 05/16/18 08:00 Pulse Ox 96 05/16/18 08:00 General appearance: no acute distress, alert, appears uncomfortable Eyes: nonicteric ENT: oropharynx moist Effort: normal Auscultation: bilateral: clear Cardiovascular: regular rate and rhythm Gastrointestinal: normoactive bowel sounds, soft, non-tender, non-distended Integumentary: normal Extremities: no edema, pulses normal Musculoskeletal: no deformities normal mental status mood appropriate, affect normal Results - Laboratory Findings CBC and BMP: 05/15/18 07:15 05/15/18 07:15 PT/INR, D-dimer PT 15.6 Seconds (9.4-12.1) H 05/13/18 13:27 Abnormal lab findings: Abnormal lab results WBC 16.1 K/mcL (4.3-11.1) H 05/15/18 07:15 RBC 4.01 M/mcL (4.19-5.50) L 05/15/18 07:15 Hgb 11.7 g/dL (12.9-16.9) L 05/15/18 07:15 Hct 35.6 % (37.5-50.1) L 05/15/18 07:15 Neutrophils # 13.9 K/mcL (1.6-8.9) H 05/15/18 07:15 PT 15.6 Seconds (9.4-12.1) H 05/13/18 13:27 VBG pCO2 39 mmHg (41-51) L 05/13/18 09:01 VBG pO2 64 mmHg (25-50) H 05/13/18 09:01 Carbon Dioxide 22 mEq/L (23-29) L 05/15/18 07:15 Glucose 231 mg/dL (70-105) H 05/15/18 07:15 POC Glucose 131 mg/dL (70-99) H 05/15/18 20:15 Calcium 8.5 mg/dL (8.6-10.3) L 05/15/18 07:15 Phosphorus 2.3 mg/dL (2.7-4.5) L 05/15/18 07:15 Total Bilirubin 1.6 mg/dL (0.3-1.0) H 05/13/18 08:37 Direct Bilirubin 0.3 mg/dL (0.0-0.2) H 05/13/18 08:37 Indirect Bilirubin 1.3 mg/dL (0.0-1.2) H 05/13/18 08:37 Globulin 4.3 g/dL (2.4-3.5) H 05/13/18 08:37 Albumin/Globulin Ratio 1.0 (1.1-2.2) L 05/13/18 08:37 Lipase < 3 Units/L (11-82) L 05/13/18 08:37 Urine Color Mayflower (Yellow) A 05/13/18 08:30 Urine Protein 100 mg/dL (Neg-Trace) H 05/13/18 08:30 Urine Nitrite Positive (Negative) A 05/13/18 08:30 Urine Bilirubin Small (Negative) H 05/13/18 08:30 Urine Urobilinogen 2.0 mg/dL (Normal) H 05/13/18 08:30 Ur Leukocyte Esterase Trace (Negative) H 05/13/18 08:30 Urine Microscopic WBC 3-5 per hpf (0-3) H 05/13/18 08:30 Ur Squamous Epith Cells Many per lpf (None-Few) H 05/13/18 08:30 Ur Culture Indicated? NO. (NO) A 05/13/18 08:30 Fluid Appearance Cloudy (Clear) A 05/14/18 14:04 - Microbiology Findings Microbiology Findings: Microbiology, Last 48 Hours 05/14/18 13:43 Acid Fast Stain - Final Left Upper Lobe Lung 05/14/18 13:43 Acid Fast Stain - Final Left Upper Lobe Lung 05/14/18 13:43 Respiratory Culture - Preliminary Left Upper Lobe Lung 05/14/18 13:43 Respiratory Culture - Preliminary Left Upper Lobe Lung 05/14/18 13:43 Respiratory Culture - Preliminary Left Upper Lobe Lung 05/13/18 Unknown Sputum Culture - Preliminary Sputum 05/13/18 Unknown Acid Fast Stain - Final Sputum - Clinical Findings Intake & Output: Intake & Output 05/15/18 05/16/18 05/16/18 23:59 07:59 15:59 Intake Total 580 / 580 240 / 240 Output Total 1510 / 1510 1300 / 1300 Balance -930 / -930 -1060 / -1060 Weight 91 kg - VTE Documentation of Mechanical Device: Intermittent pneumatic compression device Consult Discharge Plan - Plan Referrals: Rosa Gifford MD [Primary Care Provider] - <April Burton - Last Filed: 05/16/18 15:15> Date of Encounter: 05/16/18 Objective PUL Vital signs: Last Vital Signs Temp 97.9 F 05/16/18 08:00 Pulse 69 05/16/18 08:00 Resp 16 05/16/18 08:00 BP 143/88 05/16/18 08:00 Pulse Ox 96 05/16/18 08:00 Results - Laboratory Findings CBC and BMP: 05/15/18 07:15 05/15/18 07:15 PT/INR, D-dimer PT 15.6 Seconds (9.4-12.1) H 05/13/18 13:27 Abnormal lab findings: Abnormal lab results WBC 16.1 K/mcL (4.3-11.1) H 05/15/18 07:15 RBC 4.01 M/mcL (4.19-5.50) L 05/15/18 07:15 Hgb 11.7 g/dL (12.9-16.9) L 05/15/18 07:15 Hct 35.6 % (37.5-50.1) L 05/15/18 07:15 Neutrophils # 13.9 K/mcL (1.6-8.9) H 05/15/18 07:15 PT 15.6 Seconds (9.4-12.1) H 05/13/18 13:27 VBG pCO2 39 mmHg (41-51) L 05/13/18 09:01 VBG pO2 64 mmHg (25-50) H 05/13/18 09:01 Carbon Dioxide 22 mEq/L (23-29) L 05/15/18 07:15 Glucose 231 mg/dL (70-105) H 05/15/18 07:15 POC Glucose 131 mg/dL (70-99) H 05/15/18 20:15 Calcium 8.5 mg/dL (8.6-10.3) L 05/15/18 07:15 Phosphorus 2.3 mg/dL (2.7-4.5) L 05/15/18 07:15 Total Bilirubin 1.6 mg/dL (0.3-1.0) H 05/13/18 08:37 Direct Bilirubin 0.3 mg/dL (0.0-0.2) H 05/13/18 08:37 Indirect Bilirubin 1.3 mg/dL (0.0-1.2) H 05/13/18 08:37 Globulin 4.3 g/dL (2.4-3.5) H 05/13/18 08:37 Albumin/Globulin Ratio 1.0 (1.1-2.2) L 05/13/18 08:37 Lipase < 3 Units/L (11-82) L 05/13/18 08:37 Urine Color Mayflower (Yellow) A 05/13/18 08:30 Urine Protein 100 mg/dL (Neg-Trace) H 05/13/18 08:30 Urine Nitrite Positive (Negative) A 05/13/18 08:30 Urine Bilirubin Small (Negative) H 05/13/18 08:30 Urine Urobilinogen 2.0 mg/dL (Normal) H 05/13/18 08:30 Ur Leukocyte Esterase Trace (Negative) H 05/13/18 08:30 Urine Microscopic WBC 3-5 per hpf (0-3) H 05/13/18 08:30 Ur Squamous Epith Cells Many per lpf (None-Few) H 05/13/18 08:30 Ur Culture Indicated? NO. (NO) A 05/13/18 08:30 Fluid Appearance Cloudy (Clear) A 05/14/18 14:04 - Microbiology Findings Microbiology Findings: Microbiology, Last 48 Hours 05/13/18 Unknown Sputum Culture - Final Sputum 05/14/18 13:43 Acid Fast Stain - Final Left Upper Lobe Lung 05/14/18 13:43 Acid Fast Stain - Final Left Upper Lobe Lung 05/14/18 13:43 Respiratory Culture - Preliminary Left Upper Lobe Lung 05/14/18 13:43 Respiratory Culture - Preliminary Left Upper Lobe Lung 05/14/18 13:43 Respiratory Culture - Preliminary Left Upper Lobe Lung 05/13/18 Unknown Acid Fast Stain - Final Sputum - Clinical Findings Intake & Output: Intake & Output 05/15/18 05/16/18 05/16/18 23:59 07:59 15:59 Intake Total 580 / 580 240 / 240 120 / 120 Output Total 1510 / 1510 1300 / 1300 Balance -930 / -930 -1060 / -1060 120 / 120 Weight 91 kg - Attending Attestation I examined this patient and my medical decision-making was reviewed with the Resident Physician. I agree with the documented findings, disposition and treatment plan as described except to the extent set forth below. Patient seen and examined. Labs, radiology, chart personally reviewed. Agree with resident's history and physical, assessment, plan with following comments: REIMBURSEMENT COORDINATOR: Patient follows commands, Pulmonary: Acceptable oxygenation and ventilation and patient status post bronchoscopy. Discuss with infectious disease team and they still suspect this is infectious in nature and he will need a follow-up images seen about 6-8 weeks, if no improvement I would suggest to repeat bronchoscopy and biopsy. Patient denies any hemoptysis today and he feels slightly better. Other possibility in this patient could be diseases such as sarcoidosis and again will need to biopsy if there is no improvement current treatment. Cardiovascular: stable
--- NOTE | 2018-05-16 10:47 | Infectious Disease Consult ---
Date of Encounter: 05/16/18 Time of Encounter: 10:29 Assessment and Plan (1) Sepsis Status: Acute Assessment and plan: Resolved. Patient initially meeting sepsis criteria on admission on 05/13/2018 SIRS: temperature 101.5, tachycardia 124, WBC 19.4 -today, afebrile -WBC 16.1 decreasing -source may be cavitary lesion in left lung that may be infectious vs noninfectious -etiology is unclear may be GPC -urinalysis + nitrite, leukocyte esterase, urobilinogen, bilirubin -respiratory infectious panel negative -MRSA negative -flu negative -strep pneumonia negative -sputum culture negative -05/13/2018 acid fast negative x3 -05/13/2018 blood cultures preliminary x2 negative to date -05/14/2018 respiratory culture preliminary GPC Plan: -continue vancomycin day 4 -continue Zosyn day 4 -awaits final blood culture results -await final respiratory culture results Qualifiers: Sepsis type: sepsis due to unspecified organism Qualified Code(s): A41.9 - Sepsis, unspecified organism (2) Cavitary lesion of lung Status: Acute Assessment and plan: Cavitary lesion and left upper lobe demonstrated by CTA -etiology may be infectious from bacteria or fungal vs. noninfectious such as inflammatory, neoplastic, structural -source GPC on respiratory culture -Chest CTA demonstrated cavitary lesion the left upper lobe with associated infiltrate as well as extensive mediastinal and hilar lymphadenopathy. Differential including infectious or neoplastic etiology. Bilateral sub pleural nodules were noted. Negative for pulmonary embolus or aortic dissection. -Previous extensive workup had been negative in 2017 -respiratory infectious panel negative -MRSA negative -flu negative -strep pneumonia negative -sputum culture negative -05/13/2018 acid fast negative x3 -05/13/2018 blood cultures preliminary x2 negative to date -05/14/2018 respiratory culture preliminary GPC Plan: -continue vancomycin day 4 -continue Zosyn day 4 -ordered HIV, crypto Ag, fungitell, blastomcyes, histoplasmosis, ESR, CRP, aspergillosis galactomannan -awaits final blood culture results -await final respiratory culture results -Pulmonology following and recommends that patient symptoms do not improve and 6-8 weeks they consider repeat CT and follow-up with pulmonology for bronchoscopy assisted biopsy of the cavitary lesion (3) Cough with hemoptysis Status: Resolved Assessment and plan: Patient reported having a few teaspoons of hemoptysis. -This may be secondary to the cavitary lesion -hemoglobin is stable and the patient is a longer having hemoptysis -will continue to monitor (4) Multiple lung nodules on CT Status: Acute Assessment and plan: Multiple nodules on chest CTA Chest CTA demonstrated cavitary lesion the left upper lobe with associated infiltrate as well as extensive mediastinal and hilar lymphadenopathy. Differential including infectious or neoplastic etiology. Bilateral sub pleural nodules were noted. Negative for pulmonary embolus or aortic dissection. -Pulmonology following and recommends that patient symptoms do not improve and 6-8 weeks they consider repeat CT and follow-up with pulmonology for bronchoscopy assisted biopsy of the cavitary lesion (5) Asthma Status: Chronic Assessment and plan: Patient has history of asthma using albuterol and fluticasone/ salmeterol. -Management for primary team Qualifiers: Asthma severity: unspecified severity Asthma persistence: unspecified Asthma complication type: uncomplicated Qualified Code(s): J45.909 - Unspecified asthma, uncomplicated Infectious Disease HPI - Data of Consult Patient: known to practice within the last 3 years Consult date: 05/15/18 Requesting Physician: Alfredo Conn MD Primary Care Provider: Rosa Gifford - Consult Narrative Reason for consult: Cavitary lung lesion History of present illness: Mr. Rodriguez is a 37 year old male with a past medical history of asthma and Gerd presented to [facility] complaining of fever, chills, hemoptysis on 05/13/2018. Infectious disease was consulted on 05/15/2018 due to cavitary lesion. On initial presentation the patient met sepsis criteria with temperature 101.5, tachycardia 124, WBC 19.4. Chest CTA demonstrated cavitary lesion the left upper lobe with associated infiltrate as well as extensive mediastinal and hilar lymphadenopathy. Differential including infectious or neoplastic etiology. Bilateral sub pleural nodules were noted. Negative for pulmonary embolus or aortic dissection. The patient was placed on airborne precautions. The patient was started on empiric antibiotics with Zosyn and vancomycin along with Solu- Medrol. A bronchoscopy was performed by pulmonology which demonstrated left upper lobe is, polyp, narrowing in the superior lingula segment of the left upper lobe and in the inferior lingula segment of the left upper lobe with lesion of benign appearance. Specimens of BAL, brushing, culture, cytology were taken. Respiratory infectious panel, toxicology, flu, MRSA, acid fast, sputum culture, strep pneumonia were all negative. Respiratory culture from bronchoscopy is pending but growing GPC. Upon examination of the patient he reported that Wednesday05/08/2018 he started having body aches then later in the week he started having hemoptysis. He thought he had the flu but when he progressively worsened he decided to go to the ED. Additionally he had productive cough, nausea and vomiting, night sweats, fever, chills. The productive bloody cough was what he estimates to be a few teaspoons. He admits to left side chest pain when coughing or palpated. when He denies weight loss, headache, change in vision, abdominal pain, dysuria, skin lesions. He stated that he was admitted here a couple years ago for similar complaints in the cavitary lesion was noted then as well. He stated that at that time he recovered and symptoms resolved however he did not go to his follow-up appointments due to work. 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 He denies recent travel, TB exposure, incarceration, drug use, alcohol use, smoking. He has for pit bulls. He is to his . He denies any skin lesions. He denies any other family history of autoimmune diseases. CC: Alfredo Conn MD Past Med Surg Social Fam HX - Past Medical History Attestation: Yes The following information was validated with the patient. Source: patient Medical history: asthma, GERD, other Additional medical history: 3 ulcers in esophagus Psychiatric history: no psych history - Past Surgical History Surgical History: no surgical history - Social History Smoking Status: Never smoker Smokeless Tobacco Status: No Alcohol use: occasionally Drug use: none - Family History Mother Hx Family Cardiac Disorders: Yes (ND) Hx Family Endocrine Disorder: Yes (DM II) Hx Family Neurologic Disorders: Yes (stroke) Infectious Disease-CN:Meds RX: Albuterol Sulfate [Albuterol Inhaler] 2 puff PO Q4-6H PRN 09/08/16 [History] RX: Loratadine [Allergy Relief] 10 mg PO DAILY 09/08/16 [History] RX: Omeprazole [PriLOSEC] 20 mg PO DAILY 09/08/16 [History] Albuterol Neb [Proventil Neb] 2.5 mg IH Q4H PRN 12/11/16 [History] Fluticasone/Salmeterol [Airduo Respiclick 113-14 Mcg] 1 puff IH BID 05/13/18 [History] Allergy/AdvReac Type Severity Reaction Status Date / Time bismuth subsalicylate Allergy Hives Verified 05/13/18 15:38 [From Pepto-Bismol] - Constitutional Constitutional: Present: chills, fatigue, fever(s), lethargy, night sweats, weakness. Absent: weight loss - EENT Eyes: Absent: blurry vision, change in vision - Cardiovascular Cardiovascular: Absent: chest pain, edema, palpitations, syncope - Respiratory Respiratory: Present: cough, dyspnea, hemoptysis - Gastrointestinal Gastrointestinal: Present: nausea, vomiting. Absent: abdominal pain - Musculoskeletal Musculoskeletal: Absent: abnormal gait, muscle weakness - Integumentary Integumentary: Absent: new lesions, non-healing lesions - Neurological Neurological: Absent: disequilibrium, dizziness - Hematologic/Lymphatic Hematologic/Lymphatic: Absent: easy bleeding, easy bruising Exam - Constitutional Vitals: Temp Pulse Resp BP Pulse Ox 97.9 F 69 16 143/88 96 05/16/18 08:00 05/16/18 08:00 05/16/18 08:00 05/16/18 08:00 05/16/18 08:00 Exam: Gen.: Vitals noted. No acute distress. AAOx3 HEENT: oropharynx clear, Normocephalic, atraumatic Neck: Supple. No adenopathy. Cardiac: RRR, no murmur, +S1/S2 Pulmonary: CTA bilaterally, no wheezes, rales or rhonchi, equal chest expansion, left-sided chest tenderness to palpation Abdomen: soft, nontender, Bowel sounds noted, no guarding Back: Nontender throughout. MSK: ROM intact, no joint swelling noted Extremities: no BLE edema, nontender calf, no cyanosis or clubbing Neuro: A&Ox3, moves all extremities, no focal deficits Psych: Appropriate mood and behavior Infectious Disease CN: Results - Labs CBC & Chem 7: 05/17/18 05:14 05/17/18 05:14 Cultures: Cultures 05/13/18 Unknown Sputum Culture - Final Sputum 05/14/18 13:43 Acid Fast Stain - Final Left Upper Lobe Lung 05/14/18 13:43 Acid Fast Stain - Final Left Upper Lobe Lung 05/14/18 13:43 Respiratory Culture - Preliminary Left Upper Lobe Lung 05/14/18 13:43 Respiratory Culture - Preliminary Left Upper Lobe Lung 05/14/18 13:43 Respiratory Culture - Preliminary Left Upper Lobe Lung 05/13/18 Unknown Acid Fast Stain - Final Sputum 05/13/18 Unknown Streptococcus pneumoniae Antigen (M - Final Urine,Random-Not Preferred 05/13/18 08:37 Blood Culture - Preliminary Peripheral Venipuncture Culture is incubating and being continuously monitored for growth. Final report to follow. 05/13/18 08:35 Blood Culture - Preliminary Peripheral Venipuncture Culture is incubating and being continuously m onitored for growth. Final report to follow. 05/13/18 08:43 Influenza Types A,B Antigen - Final Nasopharyngeal Serology: Serology 05/15/18 05/14/18 05/14/18 Range/Units 20:58 14:04 13:43 Urine Color (Yellow) Urine Clarity (Clear) Urine pH (5.0-8.0) pH Units Ur Specific [place] (1.010-1.025) Urine Protein (Neg-Trace) mg/dL Urine Glucose (UA) (Normal) mg/dL Urine Ketones (Negative) mg/dL Urine Blood (Negative) Urine Nitrite (Negative) Urine Bilirubin (Negative) Urine Urobilinogen (Normal) mg/dL Ur Leukocyte Esterase (Negative) Urine Microscopic RBC (0-3) per hpf Urine Microscopic WBC (0-3) per hpf Ur Squamous Epith Cells (None-Few) per lpf Urine Bacteria (None-Few) per hpf Hyaline Casts (None-Few) per lpf Urine Mucus (Few) Ur Culture Indicated? (NO) Fluid Source BAL SHAKIRA #2 SHAKIRA BAL #1 SHAKIRA BAL # Fluid Volume 16 11 mL Fluid Appearance Cloudy A Slightly Hazy A (Clear) Fluid RBC TNP TNP Fld Tot Nucleated Cell TNP TNP Fluid Seg Neutrophil % 41.0 51.0 % Fld Band Neutrophil % Test Not Performed Test Not Performed Fluid Lymphocytes % Test Not Performed Test Not Performed Fluid Monocytes % Test Not Performed Test Not Performed Fluid Eosinophils % Test Not Performed Test Not Performed Fluid Basophils % Test Not Performed Test Not Performed Fluid Other Cells % 59.0 49.0 % Nasal Screen MRSA (PCR) Negative (Negative) Chlamy pneumoniae PCR (Not Detect) Adenovirus (PCR) (Not Detect) B. pertussis DNA (PCR) (Not Detect) B.parapertussis DNA PCR (Not Detect) Coronavirus OC43 (PCR) (Not Detect) Coronavirus HKU1 (PCR) (Not Detect) Coronavirus 229E (PCR) (Not Detect) Coronavirus NL63 (PCR) (Not Detect) Human Metapneumovir PCR (Not Detect) Influenza A (H1) PCR (Not Detect) Influ A (H1N1/09) PCR (Not Detect) Influenza A (H3) PCR (Not Detect) Influenza A Untype (PCR) (Not Detect) Influenza Type B (PCR) (Not Detect) M.pneumoniae DNA (PCR) (Not Detect) Parainfluenza 1 (PCR) (Not Detect) Parainfluenza 2 (PCR) (Not Detect) Parainfluenza 3 (PCR) (Not Detect) Parainfluenza 4 (PCR) (Not Detect) RSV (PCR) (Not Detect) Entero/Rhino (PCR) (Not Detect) 05/13/18 05/13/18 Range/Units 14:21 08:30 Urine Color [place] A (Yellow) Urine Clarity Clear (Clear) Urine pH 5.0 (5.0-8.0) pH Units Ur Specific [place] 1.025 (1.010-1.025) Urine Protein 100 H (Neg-Trace) mg/dL Urine Glucose (UA) Normal (Normal) mg/dL Urine Ketones Negative (Negative) mg/dL Urine Blood Negative (Negative) Urine Nitrite Positive A (Negative) Urine Bilirubin Small H (Negative) Urine Urobilinogen 2.0 H (Normal) mg/dL Ur Leukocyte Esterase Trace H (Negative) Urine Microscopic RBC 0-3 (0-3) per hpf Urine Microscopic WBC 3-5 H (0-3) per hpf Ur Squamous Epith Cells Many H (None-Few) per lpf Urine Bacteria None Seen (None-Few) per hpf Hyaline Casts None Seen (None-Few) per lpf Urine Mucus Few (Few) Ur Culture Indicated? NO. A (NO) Fluid Source Fluid Volume mL Fluid Appearance (Clear) Fluid RBC Fld Tot Nucleated Cell Fluid Seg Neutrophil % % Fld Band Neutrophil % Fluid Lymphocytes % Fluid Monocytes % Fluid Eosinophils % Fluid Basophils % Fluid Other Cells % % Nasal Screen MRSA (PCR) (Negative) Chlamy pneumoniae PCR Not Detected (Not Detect) Adenovirus (PCR) Not Detected (Not Detect) B. pertussis DNA (PCR) Not Detected (Not Detect) B.parapertussis DNA PCR Not Detected (Not Detect) Coronavirus OC43 (PCR) Not Detected (Not Detect) Coronavirus HKU1 (PCR) Not Detected (Not Detect) Coronavirus 229E (PCR) Not Detected (Not Detect) Coronavirus NL63 (PCR) Not Detected (Not Detect) Human Metapneumovir PCR Not Detected (Not Detect) Influenza A (H1) PCR Not Detected (Not Detect) Influ A (H1N1/09) PCR Not Detected (Not Detect) Influenza A (H3) PCR Not Detected (Not Detect) Influenza A Untype (PCR) Not Detected (Not Detect) Influenza Type B (PCR) Not Detected (Not Detect) M.pneumoniae DNA (PCR) Not Detected (Not Detect) Parainfluenza 1 (PCR) Not Detected (Not Detect) Parainfluenza 2 (PCR) Not Detected (Not Detect) Parainfluenza 3 (PCR) Not Detected (Not Detect) Parainfluenza 4 (PCR) Not Detected (Not Detect) RSV (PCR) Not Detected (Not Detect) Entero/Rhino (PCR) Not Detected (Not Detect) - VTE Documentation of Mechanical Device: Intermittent pneumatic compression device Consult Discharge Plan - Plan Referrals: Rosa Gifford MD [Primary Care Provider] - - Attending Attestation I examined this patient and my medical decision-making was reviewed with the Resident Physician. I agree with the documented findings, disposition and treatment plan as described except to the extent set forth below. This is an addendum to original report dictated by resident physician. Please refer to resident's note for full detail. Patient is a 37-year-old gentleman who has been seen by me previously for right pulmonary abscess cavitary lesion. Workup extensively that time was negative and patient was treated with steroids for possible inflammatory or autoimmune cavitary lesion. Patient did well clinically. 2 years later patient comes back with similar symptoms of hemoptysis cough some pleuritic chest pain and fevers and chills on admission. Since admission CT of the chest was noted reveals a large cavitary lesion. Patient was taken for bronchoscopy. BAL cultures show gram-positive cocci on the Gram stain but cultures are pending. I did call down to microbiology and they said something grew on the chocolate agar and they just saw the and they are waiting for the results. Extensive review of systems physical exam patient including it is had any teeth problems, if he had any upper history infection, any new exposure, any animal exposure. Everything seems to have been negative. Patient does not drink alcohol has not aspirated. No smoking no IV drug use. 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 Assessment and plan: Cavitary lung lesion etiology not clear infectious versus inflammatory versus other. Appreciate CT findings, BAL results. At this point await the cultures finalize to make final recommendations on antibiotics In the meantime we will repeat fungal serologies and HIV and inflammatory markers Discussed with the pulmonary team If vasculitis or other autoimmune diseases are a concern we will defer to the pulmonary team if they want to consult rheumatology or start steroids.
[2018-05-16] MEDS: Budesonide/Formoterol 160/4.5 1 PUFF INH IH SCH ×2 (11:22→21:56)
--- NOTE | 2018-05-16 13:18 | Internal Med Progress Note ---
Hospitalist Progress Note - Encounter Date of Encounter: 05/16/18 Time of Encounter: 13:16 - Subjective Interval History: I have seen and evaluated the patient at bedside. he reports feeling better today. but continues to have productive cough. denies chest pain or palpitation. - Exam Vitals: Temp Pulse Resp BP Pulse Ox 97.9 F 77 16 152/105 98 05/16/18 08:00 05/16/18 11:39 05/16/18 11:39 05/16/18 11:39 05/16/18 11:39 Exam: Vitals: reviewed General: Alert and oriented x4. No acute distress Cardiovascular: RRR, normal S1 & S2, no rubs, murmurs or gallops. Lungs: CTA b/l, no wheezes or crackles. Abdomen: Soft, non-tender, no rigidity. Extremities: No edema Neurological: Normal cognition. Rest of the physical exam is non contributory - Assessment and Plan (1) Cavitary lesion of lung Current Visit: Yes Status: Acute Assessment and Plan: possible infectious vs vasculitis. Patient had an extensive work-up for fungal infection about a year ago due to similar findings on ct chest. work-up was negative. Plan ID consulted Left lung culture: bacteria observed, gram positive cocci patient on piperacillin/tazobactam 3.375mg/IV Q8HRs ID recommendations appreciated decrease methylprednisolone to 40mg/IV daily on bronchodilators PRN (2) Asthma Current Visit: Yes Status: Chronic Assessment and Plan: Chest is clear to auscultation. Patient on bronchodilators when necessary. (3) GERD (gastroesophageal reflux disease) Current Visit: Yes Status: Chronic Assessment and Plan: On omeprazole 40 mg by mouth daily. (4) Hypertension Current Visit: Yes Status: Acute Assessment and Plan: BP has been fluctuating in the 130-150 SBP. will continue to monitor. patient with multiple reason for elevated BP, on high dose IV steroids and chest discomfort. 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 on lispro medium dose sliding scale ac. (7) Nausea & vomiting Current Visit: Yes Status: Resolved DVT Prophylaxis: On heparin 5000 subcutaneous every 8 hours. - Summary of Assessment and Plan Summary of Assessment and Plan: We will keep patient in the hospital for 24 more hours pending sputum Gram stain and sensitivity. - Time Spent with Patient Total time spent is greater than 50% in coordination of care (as documented) at patient's floor/unit and/or counseling patient: Greater than 35 minutes (40) Plan of Care Discussed with: patient (and the nurse) Internal Medicine: Result - Labs CBC & Chem 7: 05/15/18 07:15 05/15/18 07:15 - ABG Interpretation ABG results: PT/INR, D-dimer PT 15.6 Seconds (9.4-12.1) H 05/13/18 13:27 - VTE Documentation of Mechanical Device: Intermittent pneumatic compression device Consult Discharge Plan - Plan Referrals: Rosa Gifford MD [Primary Care Provider] - (2) Asthma Qualifiers: Asthma severity: unspecified severity Asthma persistence: unspecified Asthma complication type: uncomplicated Qualified Code(s): J45.909 - Unspecified asthma, uncomplicated (3) GERD (gastroesophageal reflux disease) Qualifiers: Esophagitis presence: esophagitis presence not specified Qualified Code(s): K21.9 - Gastro-esophageal reflux disease without esophagitis (4) Hypertension Qualifiers: Hypertension type: unspecified Qualified Code(s): I10 - Essential (primary) hypertension (7) Nausea & vomiting Qualifiers: Vomiting type: cyclical vomiting Vomiting Intractability: unspecified Qualified Code(s): G43.A0 - Cyclical vomiting, not intractable
[2018-05-16 13:39] LABS: Estimated Average Glucose 126 mg/dl
[2018-05-16] MEDS ORDERED: MethylPREDNISolone 40 MG/ML VIAL IVP SCH (16:00)
[2018-05-17] MEDS: Piperacillin/Tazobactam 3.375 GM in 0.9 % Sodium Chloride Mini Bag 100 ML IVPB SCH ×2 (02:14→09:16)
[2018-05-17] MEDS: Ipratropium/Albuterol Neb 3 ML IH SCH ×3 (04:05→16:08)
[2018-05-17] MEDS: *HR* Heparin 5,000 UNIT/ML VIAL SQ SCH ×2 (04:39→16:08)
[2018-05-17 08:07] LABS: Hematocrit 39.8 % (37.5-50.1); Hemoglobin 13.1 g/dL (12.9-16.9); Mean Corpuscular HGB Conc 32.9 g/dL (31.6-35.5); Mean Corpuscular Hemoglobin 29.1 pg (28.0-33.3); Mean Corpuscular Volume 88.4 fL (83.0-100.0); Mean Platelet Volume 10.1 fL (9.4-12.4); Platelet Count 310 K/mcL (140-400); Red Cell Distribution Width 12.5 % (11.5-14.5)
--- NOTE | 2018-05-17 08:48 | Pulmonology Progress Note ---
<Hanna Olmos - Last Filed: 05/17/18 16:46> Date of Encounter: 05/17/18 Time of Encounter: 09:00 Assessment and Plan (1) Cavitary lesion of lung Status: Acute Cavitary lesion of the left upper lung lingula with cavitation. Presented with hemoptysis now resolved. History of chronic sinusitis. BAL showed polyp in true vocal cords. 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 There was also a cavitary lesion in the left upper lobe with mediastinal and hilar lymphadenopathy. Could be due to infectious or neoplastic etiology. -If his symptoms do not improve in 6-8 weeks he should consider repeat CT -Bronchoscopy pending for cytology (3) Cough with hemoptysis Status: Resolved Presented to the hospital complaining of cough with blood and was noted to be a few teaspoons. Now resolved. -Hemoglobin is stable -Hemoptysis could be secondary to infectious etiology, serratia marcescens and group c streptococcus positive -Continue antibiotic regimens by ID recommendations Subjective Principal diagnosis: Lung Mass Interval history: Mr. Rodriguez was seen at bedside this morning. He was comfortable in room air. There were no events overnight. He noted his breathing has improved and has had no new episodes of hemoptysis. He denied fever, chills, nausea, emesis or chest pain. Objective PUL Vital signs: Last Vital Signs Temp 98.2 F 05/17/18 07:46 Pulse 56 05/17/18 07:46 Resp 16 05/17/18 07:46 BP 162/107 05/17/18 07:46 Pulse Ox 97 05/17/18 07:46 General appearance: no acute distress Eyes: nonicteric ENT: oropharynx moist Neck: supple Auscultation: bilateral: clear Cardiovascular: regular rate and rhythm Gastrointestinal: normoactive bowel sounds, soft, non-tender, non-distended Integumentary: normal Extremities: no cyanosis, no edema Musculoskeletal: no deformities normal mental status, pupils equal and round mood appropriate, affect normal Results - Laboratory Findings CBC and BMP: 05/17/18 05:14 05/17/18 05:14 PT/INR, D-dimer PT 15.6 Seconds (9.4-12.1) H 05/13/18 13:27 Abnormal lab findings: Abnormal lab results Neutrophils # 13.9 K/mcL (1.6-8.9) H 05/15/18 07:15 ESR 74 mm/hr (0-10) H 05/17/18 05:14 PT 15.6 Seconds (9.4-12.1) H 05/13/18 13:27 VBG pCO2 39 mmHg (41-51) L 05/13/18 09:01 VBG pO2 64 mmHg (25-50) H 05/13/18 09:01 Carbon Dioxide 22 mEq/L (23-29) L 05/15/18 07:15 Glucose 231 mg/dL (70-105) H 05/15/18 07:15 POC Glucose 217 mg/dL (70-99) H 05/16/18 21:10 Hemoglobin A1c 6.0 % (-5.6) H 05/15/18 07:15 Calcium 8.5 mg/dL (8.6-10.3) L 05/15/18 07:15 Phosphorus 2.3 mg/dL (2.7-4.5) L 05/15/18 07:15 Total Bilirubin 1.6 mg/dL (0.3-1.0) H 05/13/18 08:37 Direct Bilirubin 0.3 mg/dL (0.0-0.2) H 05/13/18 08:37 Indirect Bilirubin 1.3 mg/dL (0.0-1.2) H 05/13/18 08:37 Globulin 4.3 g/dL (2.4-3.5) H 05/13/18 08:37 Albumin/Globulin Ratio 1.0 (1.1-2.2) L 05/13/18 08:37 Lipase < 3 Units/L (11-82) L 05/13/18 08:37 Urine Color [place]el (Yellow) A 05/13/18 08:30 Urine Protein 100 mg/dL (Neg-Trace) H 05/13/18 08:30 Urine Nitrite Positive (Negative) A 05/13/18 08:30 Urine Bilirubin Small (Negative) H 05/13/18 08:30 Urine Urobilinogen 2.0 mg/dL (Normal) H 05/13/18 08:30 Ur Leukocyte Esterase Trace (Negative) H 05/13/18 08:30 Urine Microscopic WBC 3-5 per hpf (0-3) H 05/13/18 08:30 Ur Squamous Epith Cells Many per lpf (None-Few) H 05/13/18 08:30 Ur Culture Indicated? NO. (NO) A 05/13/18 08:30 Fluid Appearance Cloudy (Clear) A 05/14/18 14:04 - Microbiology Findings Microbiology Findings: Microbiology, Last 48 Hours 05/14/18 13:43 Respiratory Culture - Final Left Upper Lobe Lung Serratia marcescens 05/14/18 13:43 Respiratory Culture - Preliminary Left Upper Lobe Lung 05/14/18 13:43 Respiratory Culture - Final Left Upper Lobe Lung Group C Streptococcus 05/13/18 Unknown Sputum Culture - Final Sputum 05/14/18 13:43 Acid Fast Stain - Final Left Upper Lobe Lung 05/14/18 13:43 Acid Fast Stain - Final Left Upper Lobe Lung - Clinical Findings Intake & Output: Intake & Output 05/16/18 05/17/18 05/17/18 23:59 07:59 15:59 Intake Total 690 / 690 1989 Output Total 525 / 525 1776 / 1776 Balance 165 / 165 214 / 214 Weight 91 kg - VTE Documentation of Mechanical Device: Intermittent pneumatic compression device Consult Discharge Plan - Plan Instructions: Sulfamethoxazole/Trimethoprim (By mouth), Prednisone (By mouth), Amoxicillin/Clavulanate Potassium (By mouth), Flexible Bronchoscopy (DC), Flexible Bronchoscopy (GEN) Referrals: Juli Eagle MD [Partnered Physician] - (Set web request ) Rosa Gifford MD [Primary Care Provider] - 05/23/18 10:30 am April Burton MD [Partnered Physician] - (Sent web request to Dr Burton office for patient apt) Alma Okeefe MD [Partnered Physician] - (sent web request Dr. Naila Okeefe office will contact patient) Prescriptions: RX: levoFLOXacin [Levofloxacin] 500 mg PO DAILY 28 Days #28 tablet RX: PredniSONE [Deltasone] 30 mg PO DAILY 7 Days #7 tablet predniSONE [Prednisone] 20 mg PO DAILY 7 Days #7 tab.ds.pk RX: predniSONE [PredniSONE] 40 mg PO DAILY 7 Days #7 tablet predniSONE [PredniSONE] 10 mg PO DAILY 7 Days #7 tablet <April Burton M - Last Filed: 05/17/18 22:33> Date of Encounter: 05/17/18 Objective PUL Vital signs: Last Vital Signs Temp 98.6 F 05/17/18 15:44 Pulse 69 05/17/18 15:44 Resp 17 05/17/18 16:09 BP 141/96 05/17/18 15:44 Pulse Ox 97 05/17/18 16:09 Results - Laboratory Findings CBC and BMP: 05/17/18 05:14 05/17/18 05:14 PT/INR, D-dimer PT 15.6 Seconds (9.4-12.1) H 05/13/18 13:27 Abnormal lab findings: Abnormal lab results Neutrophils # 13.9 K/mcL (1.6-8.9) H 05/15/18 07:15 ESR 74 mm/hr (0-10) H 05/17/18 05:14 PT 15.6 Seconds (9.4-12.1) H 05/13/18 13:27 VBG pCO2 39 mmHg (41-51) L 05/13/18 09:01 VBG pO2 64 mmHg (25-50) H 05/13/18 09:01 Glucose 121 mg/dL (70-105) H 05/17/18 05:14 POC Glucose 177 mg/dL (70-99) H 05/17/18 16:31 Hemoglobin A1c 6.0 % (-5.6) H 05/15/18 07:15 Total Bilirubin 1.6 mg/dL (0.3-1.0) H 05/13/18 08:37 Direct Bilirubin 0.3 mg/dL (0.0-0.2) H 05/13/18 08:37 Indirect Bilirubin 1.3 mg/dL (0.0-1.2) H 05/13/18 08:37 C-Reactive Protein 39 mg/L (Less than 10) H 05/17/18 05:14 Globulin 4.3 g/dL (2.4-3.5) H 05/13/18 08:37 Albumin/Globulin Ratio 1.0 (1.1-2.2) L 05/13/18 08:37 Lipase < 3 Units/L (11-82) L 05/13/18 08:37 Urine Color [place] (Yellow) A 05/13/18 08:30 Urine Protein 100 mg/dL (Neg-Trace) H 05/13/18 08:30 Urine Nitrite Positive (Negative) A 05/13/18 08:30 Urine Bilirubin Small (Negative) H 05/13/18 08:30 Urine Urobilinogen 2.0 mg/dL (Normal) H 05/13/18 08:30 Ur Leukocyte Esterase Trace (Negative) H 05/13/18 08:30 Urine Microscopic WBC 3-5 per hpf (0-3) H 05/13/18 08:30 Ur Squamous Epith Cells Many per lpf (None-Few) H 05/13/18 08:30 Ur Culture Indicated? NO. (NO) A 05/13/18 08:30 Fluid Appearance Cloudy (Clear) A 05/14/18 14:04 - Microbiology Findings Microbiology Findings: Microbiology, Last 48 Hours 05/14/18 13:43 Respiratory Culture - Final Left Upper Lobe Lung 05/14/18 13:43 Respiratory Culture - Final Left Upper Lobe Lung Serratia marcescens 05/14/18 13:43 Respiratory Culture - Final Left Upper Lobe Lung Group C Streptococcus 05/13/18 Unknown Sputum Culture - Final Sputum - Clinical Findings Intake & Output: Intake & Output 05/17/18 05/17/18 05/17/18 07:59 15:59 23:59 Intake Total 2090 / 2090 480 / 480 Output Total 1776 / 1776 Balance 314 / 314 480 / 480 Weight 91 kg - Attending Attestation I examined this patient and my medical decision-making was reviewed with the Resident Physician. I agree with the documented findings, disposition and treatment plan as described except to the extent set forth below. Patient seen and examined. Labs, radiology, chart personally reviewed. 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 Infectious disease has seen patient as well.
--- NOTE | 2018-05-17 08:49 | Infectious Disease Progress No ---
Addendum entered and electronically signed by Allison Trejo DO 05/17/18 17:14: Patient is to be discharged with levaquin 500mg for 4 weeks (06/14/2018 last dose). Probiotic daily. Repeat Chest CT on 06/06/2018, follow up in office 06/08/2018. Original Note: Date of Encounter: 05/17/18 Time of Encounter: 08:47 - Assessment and Plan (1) Sepsis Current Visit: Yes Status: Acute Resolved. Patient initially meeting sepsis criteria on admission on 05/13/2018 SIRS: temperature 101.5, tachycardia 124, WBC 19.4 -today, afebrile, hemodynamically stable -WBC 10.7 (yesterday 16.1) -source may be cavitary lesion in left lung that may be infectious vs noninfectious -etiology is Serratia marcescens -urinalysis + nitrite, leukocyte esterase, urobilinogen, bilirubin -respiratory infectious panel negative -MRSA negative -flu negative -strep pneumonia negative -ESR 74, CRP 39 elevate -sputum culture negative -05/13/2018 final acid fast negative x3 -05/13/2018 preliminary blood cultures x2 negative to date -05/14/2018 final respiratory culture preliminary Serratia marcescens and group C Streptococcus, sensitivity resulted Plan: -DC IV antibiotics Start Bactrim and Augmentin Duration of treatment [address] chest in 3 weeks Follow-up with me in clinic 06/08/2018 Qualifiers: Sepsis type: sepsis due to unspecified organism Qualified Code(s): A41.9 - Sepsis, unspecified organism (2) Cavitary lesion of lung Current Visit: Yes Status: Acute Cavitary lesion and left upper lobe demonstrated by CTA -etiology may be infectious from bacteria or fungal vs. noninfectious such as inflammatory, neoplastic, structural -source GPC on respiratory culture -Chest CTA demonstrated cavitary lesion the left upper lobe with associated infiltrate as well as extensive mediastinal and hilar lymphadenopathy. Differential including infectious or neoplastic etiology. Bilateral sub pleural nodules were noted. Negative for pulmonary embolus or aortic dissection. -Previous extensive workup had been negative in 2017 -respiratory infectious panel negative -MRSA negative -flu negative -strep pneumonia negative -ESR 74, CRP 39 elevated -HIV nonreactive -sputum culture negative -05/13/2018 final acid fast negative x3 -05/13/2018 preliminary blood cultures x2 negative to date -05/14/2018 final respiratory culture preliminary Serratia marcescens and group C Streptococcus, sensitivity resulted Plan: -continue vancomycin day 5 -continue Zosyn day 5 -ordered crypto Ag, fungitell, blastomcyes, histoplasmosis, CRP, aspergillosis galactomannan -awaits final blood culture results -Pulmonology following and recommends that patient symptoms do not improve and 6-8 weeks they consider repeat CT and follow-up with pulmonology for bronchoscopy assisted biopsy of the cavitary lesion (3) Cough with hemoptysis Current Visit: Yes Status: Resolved Patient reported having a few teaspoons of hemoptysis. -This may be secondary to the cavitary lesion -hemoglobin is stable and the patient is a longer having hemoptysis -will continue to monitor (4) Multiple lung nodules on CT Current Visit: No Status: Acute Multiple nodules on chest CTA Chest CTA demonstrated cavitary lesion the left upper lobe with associated infiltrate as well as extensive mediastinal and hilar lymphadenopathy. Differential including infectious or neoplastic etiology. Bilateral sub pleural nodules were noted. Negative for pulmonary embolus or aortic dissection. -Pulmonology following and recommends that patient symptoms do not improve and 6-8 weeks they consider repeat CT and follow-up with pulmonology for bronchoscopy assisted biopsy of the cavitary lesion (5) Asthma Current Visit: Yes Status: Chronic Patient has history of asthma using albuterol and fluticasone/ salmeterol. -Management for primary team Qualifiers: Asthma severity: unspecified severity Asthma persistence: unspecified Asthma complication type: uncomplicated Qualified Code(s): J45.909 - Unspecified asthma, uncomplicated - Subjective Interval history: Mr. Rodriguez is a 37 year old male with a past medical history of asthma and Gerd presented to [facility] complaining of fever, chills, hemoptysis on 05/13/2018. Infectious disease was consulted on 05/15/2018 due to cavitary lesion. On initial presentation the patient met sepsis criteria with temperature 101.5, tachycardia 124, WBC 19.4. Chest CTA demonstrated cavitary lesion the left upper lobe with associated infiltrate as well as extensive mediastinal and hilar lymphadenopathy. Differential including infectious or neoplastic etiology. Bilateral sub pleural nodules were noted. Negative for pulmonary embolus or aortic dissection. The patient was placed on airborne precautions. The patient was started on empiric antibiotics with Zosyn and vancomycin along with Solu-Medrol. A bronchoscopy was performed by pulmonology which demonstrated left upper lobe is, polyp, narrowing in the superior lingula segment of the left upper lobe and in the inferior lingula segment of the left upper lobe with lesion of benign appearance. Specimens of BAL, brushing, culture, cytology were taken. Respiratory infectious panel, toxicology, flu, MRSA, acid fast, sputum culture, strep pneumonia were all negative. Today, the patient is alert and oriented times 3 resting comfortably sitting up in bed. He denies any complaints. He denies fever, chills, shortness of breath, wheezing, chest pain, abdominal pain. He still has cough but this is unchanged. Overall he feels improved. Respiratory cultures are growing separation marcescens and group sees Streptococcus. Fungal studies are still pending. Infect Dis PN-Objective Data - Labs CBC & Chem 7: 05/17/18 05:14 05/17/18 05:14 Labs: Laboratory Results - last 24 hr 05/14/18 05/15/18 05/16/18 13:43 07:15 07:53 WBC RBC Hgb Hct MCV MCH MCHC RDW Plt Count MPV ESR POC Glucose 95 Est Mean Plasma Glucose 126 Hemoglobin A1c 6.0 H Fluid Source SHAKIRA BAL #1 SHAKIRA BAL # Fluid Volume 11 Fluid Appearance Slightly Hazy A Fluid RBC TNP Fld Tot Nucleated Cell TNP Fluid Seg Neutrophil % 51.0 Fluid Other Cells % 49.0 HIV Ag/Ab Combo Qual 05/16/18 05/16/18 05/16/18 11:42 15:15 21:10 WBC RBC Hgb Hct MCV MCH MCHC RDW Plt Count MPV ESR POC Glucose 79 162 H 217 H Est Mean Plasma Glucose Hemoglobin A1c Fluid Source Fluid Volume Fluid Appearance Fluid RBC Fld Tot Nucleated Cell Fluid Seg Neutrophil % Fluid Other Cells % HIV Ag/Ab Combo Qual 05/17/18 05/17/18 05/17/18 05:14 05:14 05:14 WBC 10.7 RBC 4.50 Hgb 13.1 Hct 39.8 MCV 88.4 MCH 29.1 MCHC 32.9 RDW 12.5 Plt Count 310 MPV 10.1 ESR 74 H POC Glucose Est Mean Plasma Glucose Hemoglobin A1c Fluid Source Fluid Volume Fluid Appearance Fluid RBC Fld Tot Nucleated Cell Fluid Seg Neutrophil % Fluid Other Cells % HIV Ag/Ab Combo Qual Nonreactive Cultures: Cultures 05/14/18 13:43 Respiratory Culture - Final Left Upper Lobe Lung Serratia marcescens 05/14/18 13:43 Respiratory Culture - Preliminary Left Upper Lobe Lung 05/14/18 13:43 Respiratory Culture - Final Left Upper Lobe Lung Group C Streptococcus 05/13/18 Unknown Sputum Culture - Final Sputum 05/14/18 13:43 Acid Fast Stain - Final Left Upper Lobe Lung 05/14/18 13:43 Acid Fast Stain - Final Left Upper Lobe Lung 05/13/18 Unknown Acid Fast Stain - Final Sputum 05/13/18 Unknown Streptococcus pneumoniae Antigen (M - Final Urine,Random-Not Preferred 05/13/18 08:37 Blood Culture - Preliminary Peripheral Venipuncture Culture is incubating and being continuously monitored for growth. Final report to follow. 05/13/18 08:35 Blood Culture - Preliminary Peripheral Venipuncture Culture is incubating and being continuously monitored for growth. Final report to follow. 05/13/18 08:43 Influenza Types A,B Antigen - Final Nasopharyngeal Serology 05/17/18 05/15/18 05/14/18 Range/Units 05:14 20:58 14:04 Urine Color (Yellow) Urine Clarity (Clear) Urine pH (5.0-8.0) pH Units Ur Specific [place] (1.010-1.025) Urine Protein (Neg-Trace) mg/dL Urine Glucose (UA) (Normal) mg/dL Urine Ketones (Negative) mg/dL Urine Blood (Negative) Urine Nitrite (Negative) Urine Bilirubin (Negative) Urine Urobilinogen (Normal) mg/dL Ur Leukocyte Esterase (Negative) Urine Microscopic RBC (0-3) per hpf Urine Microscopic WBC (0-3) per hpf Ur Squamous Epith Cells (None-Few) per lpf Urine Bacteria (None-Few) per hpf Hyaline Casts (None-Few) per lpf Urine Mucus (Few) Ur Culture Indicated? (NO) Fluid Source BAL SHAKIRA #2 Fluid Volume 16 mL Fluid Appearance Cloudy A (Clear) Fluid RBC TNP Fld Tot Nucleated Cell TNP Fluid Seg Neutrophil % 41.0 % Fld Band Neutrophil % Test Not Performed Fluid Lymphocytes % Test Not Performed Fluid Monocytes % Test Not Performed Fluid Eosinophils % Test Not Performed Fluid Basophils % Test Not Performed Fluid Other Cells % 59.0 % Nasal Screen MRSA (PCR) Negative (Negative) Chlamy pneumoniae PCR (Not Detect) Adenovirus (PCR) (Not Detect) B. pertussis DNA (PCR) (Not Detect) B.parapertussis DNA PCR (Not Detect) Coronavirus OC43 (PCR) (Not Detect) Coronavirus HKU1 (PCR) (Not Detect) Coronavirus 229E (PCR) (Not Detect) Coronavirus NL63 (PCR) (Not Detect) HIV Ag/Ab Combo Qual Nonreactive (Nonreactive) Human Metapneumovir PCR (Not Detect) Influenza A (H1) PCR (Not Detect) Influ A (H1N1/09) PCR (Not Detect) Influenza A (H3) PCR (Not Detect) Influenza A Untype (PCR) (Not Detect) Influenza Type B (PCR) (Not Detect) M.pneumoniae DNA (PCR) (Not Detect) Parainfluenza 1 (PCR) (Not Detect) Parainfluenza 2 (PCR) (Not Detect) Parainfluenza 3 (PCR) (Not Detect) Parainfluenza 4 (PCR) (Not Detect) RSV (PCR) (Not Detect) Entero/Rhino (PCR) (Not Detect) 05/14/18 05/13/18 05/13/18 Range/Units 13:43 14:21 08:30 Urine Color [place] A (Yellow) Urine Clarity Clear (Clear) Urine pH 5.0 (5.0-8.0) pH Units Ur Specific [place] 1.025 (1.010-1.025) Urine Protein 100 H (Neg-Trace) mg/dL Urine Glucose (UA) Normal (Normal) mg/dL Urine Ketones Negative (Negative) mg/dL Urine Blood Negative (Negative) Urine Nitrite Positive A (Negative) Urine Bilirubin Small H (Negative) Urine Urobilinogen 2.0 H (Normal) mg/dL Ur Leukocyte Esterase Trace H (Negative) Urine Microscopic RBC 0-3 (0-3) per hpf Urine Microscopic WBC 3-5 H (0-3) per hpf Ur Squamous Epith Cells Many H (None-Few) per lpf Urine Bacteria None Seen (None-Few) per hpf Hyaline Casts None Seen (None-Few) per lpf Urine Mucus Few (Few) Ur Culture Indicated? NO. A (NO) Fluid Source SHAKIRA BAL #1 SHAKIRA BAL # Fluid Volume 11 mL Fluid Appearance Slightly Hazy A (Clear) Fluid RBC TNP Fld Tot Nucleated Cell TNP Fluid Seg Neutrophil % 51.0 % Fld Band Neutrophil % Test Not Performed Fluid Lymphocytes % Test Not Performed Fluid Monocytes % Test Not Performed Fluid Eosinophils % Test Not Performed Fluid Basophils % Test Not Performed Fluid Other Cells % 49.0 % Nasal Screen MRSA (PCR) (Negative) Chlamy pneumoniae PCR Not Detected (Not Detect) Adenovirus (PCR) Not Detected (Not Detect) B. pertussis DNA (PCR) Not Detected (Not Detect) B.parapertussis DNA PCR Not Detected (Not Detect) Coronavirus OC43 (PCR) Not Detected (Not Detect) Coronavirus HKU1 (PCR) Not Detected (Not Detect) Coronavirus 229E (PCR) Not Detected (Not Detect) Coronavirus NL63 (PCR) Not Detected (Not Detect) HIV Ag/Ab Combo Qual (Nonreactive) Human Metapneumovir PCR Not Detected (Not Detect) Influenza A (H1) PCR Not Detected (Not Detect) Influ A (H1N1/09) PCR Not Detected (Not Detect) Influenza A (H3) PCR Not Detected (Not Detect) Influenza A Untype (PCR) Not Detected (Not Detect) Influenza Type B (PCR) Not Detected (Not Detect) M.pneumoniae DNA (PCR) Not Detected (Not Detect) Parainfluenza 1 (PCR) Not Detected (Not Detect) Parainfluenza 2 (PCR) Not Detected (Not Detect) Parainfluenza 3 (PCR) Not Detected (Not Detect) Parainfluenza 4 (PCR) Not Detected (Not Detect) RSV (PCR) Not Detected (Not Detect) Entero/Rhino (PCR) Not Detected (Not Detect) Exam - Constitutional Vitals: Temp Pulse Resp BP Pulse Ox 98.2 F 56 16 162/107 97 05/17/18 07:46 05/17/18 07:46 05/17/18 07:46 05/17/18 07:46 05/17/18 07:46 Exam: Gen.: Vitals noted. No acute distress. AAOx3 HEENT: oropharynx clear, Normocephalic, atraumatic Neck: Supple. No adenopathy. Cardiac: RRR, no murmur, +S1/S2 Pulmonary: CTA bilaterally, no wheezes, rales or rhonchi, equal chest expansion, left-sided chest tenderness to palpation Abdomen: soft, nontender, Bowel sounds noted, no guarding Back: Nontender throughout. MSK: ROM intact, no joint swelling noted Extremities: no BLE edema, nontender calf, no cyanosis or clubbing Neuro: A&Ox3, moves all extremities, no focal deficits Psych: Appropriate mood and behavior - VTE Documentation of Mechanical Device: Intermittent pneumatic compression device Consult Discharge Plan - Plan Referrals: Rosa Gifford MD [Primary Care Provider] - - Attending Attestation I examined this patient and my medical decision-making was reviewed with the Resident Physician. I agree with the documented findings, disposition and treatment plan as described except to the extent set forth below. Cavitary lung lesion Could be due to bacterial infection. Cultures grew Serratia marcescens and group C streptococcus DC IV antibiotics Start Bactrim and Augmentin Duration of treatment [address] chest in 3 weeks Follow-up with me in clinic 06/08/2018
[2018-05-17] MEDS: Insulin LISPRO 300 UNITS/3 ML VIAL SQ SCH ×3 (09:26→16:31)
[2018-05-17 09:27] LABS: BUN/Creatinine Ratio 17 (6-26); Blood Urea Nitrogen 15 mg/dL (6-20); C-Reactive Protein 39 mg/L (Less than 10); Calcium 8.8 mg/dL (8.6-10.3); Carbon Dioxide 24 mEq/L (23-29); Chloride 106 mEq/L (98-107); Glucose 121 mg/dL (70-105); Osmolality,Calculated 290 (280-300); Phosphorous 3.8 mg/dL (2.7-4.5); Potassium 3.7 mEq/L (3.5-5.1); Sodium 139 mEq/L (136-145); eGFR For Non-African Americans > 60 (> 60)
[2018-05-17] MEDS: Budesonide/Formoterol 160/4.5 1 PUFF INH IH SCH (09:58)
--- NOTE | 2018-05-17 10:53 | Internal Med Progress Note ---
Hospitalist Progress Note - Encounter Date of Encounter: 05/17/18 Time of Encounter: 10:49 - Subjective Interval History: I have seen and evaluated the patient at bedside. patient reports significant improvement on his respiratory status, but reports productive cough, denies nausea or vomiting - Exam Vitals: Temp Pulse Resp BP Pulse Ox 98.2 F 69 17 161/101 98 05/17/18 07:46 05/17/18 10:41 05/17/18 10:41 05/17/18 10:41 05/17/18 10:41 Exam: Vitals: reviewed General: Alert and oriented x4. No acute distress Cardiovascular: RRR, normal S1 & S2, no rubs, murmurs or gallops. Lungs: CTA b/l, no wheezes or crackles. Abdomen: Soft, non-tender, no rigidity. NABS in all 4 quadrants Extremities: No edema Neurological: Normal cognition. Rest of the physical exam is non contributory - Assessment and Plan (1) Cavitary lesion of lung Current Visit: Yes Status: Acute Assessment and Plan: patient s/p broch. Sputum culture: Serratia marcescens and group C strep. blood culture no growth Patient on IV day 5 of IV vancomycin and Piperacillin/tazobactam 3.375mg/IV Q8HRs. will discuss with IV narrowing down antibiotics coverage fungus work-up ordered, pending report. discontinue methylprednosilone, will transition to oral steroids on bronchodilators prn pulm recommendations appreciated (2) Asthma Current Visit: Yes Status: Chronic Assessment and Plan: chest is clear to auscultation. continue bronchodilators prn (3) GERD (gastroesophageal reflux disease) Current Visit: Yes Status: Chronic Assessment and Plan: on a ppi (4) Hypertension Current Visit: Yes Status: Acute Assessment and Plan: BP has been running in the 150 SBP. will start patient on amlodipine 5mg/PO daily (5) Vocal cord polyp Current Visit: Yes Status: Acute Assessment and Plan: recommended to f/u with ENT as outpatient (6) Hyperglycemia Current Visit: Yes Status: Acute Assessment and Plan: Blood sugar is controlled with lispro sliding scale ac. continue same (7) Nausea & vomiting Current Visit: Yes Status: Resolved DVT Prophylaxis: patient is on heparin 5000 units subq bid - Summary of Assessment and Plan Summary of Assessment and Plan: will keep patient in the hospital pending fungal work up. potential discharge tomorrow morning - Time Spent with Patient Total time spent is greater than 50% in coordination of care (as documented) at patient's floor/unit and/or counseling patient: Greater than 35 minutes Plan of Care Discussed with: patient (and the nurse) Internal Medicine: Result - Labs CBC & Chem 7: 05/17/18 05:14 05/17/18 05:14 Labs: Short CBC 05/17/18 Range/Units 05:14 WBC 10.7 (4.3-11.1) K/mcL Hgb 13.1 (12.9-16.9) g/dL Hct 39.8 (37.5-50.1) % Plt Count 310 (140-400) K/mcL BMP 05/17/18 05:14 Sodium 139 Potassium 3.7 Chloride 106 Carbon Dioxide 24 BUN 15 Creatinine 0.90 Glucose 121 H Calcium 8.8 - ABG Interpretation ABG results: PT/INR, D-dimer PT 15.6 Seconds (9.4-12.1) H 05/13/18 13:27 - VTE Documentation of Mechanical Device: Intermittent pneumatic compression device Consult Discharge Plan - Plan Referrals: Rosa Gifford MD [Primary Care Provider] - (2) Asthma Qualifiers: Asthma severity: unspecified severity Asthma persistence: unspecified Asthma complication type: uncomplicated Qualified Code(s): J45.909 - Unspecified asthma, uncomplicated (3) GERD (gastroesophageal reflux disease) Qualifiers: Esophagitis presence: esophagitis presence not specified Qualified Code(s): K21.9 - Gastro-esophageal reflux disease without esophagitis (4) Hypertension Qualifiers: Hypertension type: unspecified Qualified Code(s): I10 - Essential (primary) hypertension (7) Nausea & vomiting Qualifiers: Vomiting type: cyclical vomiting Vomiting Intractability: unspecified Qualified Code(s): G43.A0 - Cyclical vomiting, not intractable
[2018-05-17] MEDS ORDERED: amLODIPine 5 MG TABLET PO SCH (11:00)
[2018-05-17 15:45] VITALS: BP 141/96
--- NOTE | 2018-05-17 16:20 | Discharge Summary ---
- NOTES TO OUTPATIENT PROVIDER Notes to Outpatient Provider: Follow up with ID on june 09. Repeat CT chest in 3 weeks Orders not resulted at time of discharge: Pending orders 05/13/18 AFB Culture, Respiratory [TB] Stat AFB Smear [TB] Stat 05/13/18 08:37 Culture,Blood [BC] Stat 05/13/18 16:21 Legionella Type 1 Antibody,IgM Stat MPO/PR3 (ANCA) Antibodies Routine 05/14/18 XR fluoroscopy <1 hr [XR] Routine 05/14/18 10:56 Cytology [PTH] Routine 05/14/18 13:43 AFB Culture, Respiratory [TB] Routine AFB Culture, Respiratory [TB] Routine AFB Smear [TB] Routine AFB Smear [TB] Routine Fungal Culture [MYC] Routine Fungal Culture [MYC] Routine Fungal Culture [MYC] Routine Herpes Simplex PCR Body Fl Routine Herpes Simplex PCR Body Fl Routine Legionella Culture [RM] Routine Legionella Culture [RM] Routine Resp.Virus Panel,Body Fl Routine Resp.Virus Panel,Body Fl Routine 05/17/18 04:00 Cryptosporidium Ag EIA,Fecal Routine 05/17/18 05:14 Aspergillus galactomannan Ag AM 0400 Blastomyces Ab by EIA, rflx ID Routine Fungitell (1,3)-grxx-A-Vspeti AM 0400 Histoplasma Antigen AM 0400 Date of Encounter: 05/17/18 Time of Encounter: 16:17 - Discharge Diagnosis (1) Cavitary lesion of lung Priority: Primary Status: Acute (2) Asthma Priority: Secondary Status: Chronic Qualifiers: Asthma severity: unspecified severity Asthma persistence: unspecified Asthma complication type: uncomplicated Qualified Code(s): J45.909 - Unspecified asthma, uncomplicated (3) GERD (gastroesophageal reflux disease) Priority: Secondary Status: Chronic Qualifiers: Esophagitis presence: esophagitis presence not specified Qualified Code(s): K21.9 - Gastro-esophageal reflux disease without esophagitis (4) Hypertension Priority: Secondary Status: Chronic Qualifiers: Hypertension type: unspecified Qualified Code(s): I10 - Essential (primary) hypertension (5) Vocal cord polyp Priority: Secondary Status: Acute (6) Hyperglycemia Priority: Secondary Status: Acute (7) Nausea & vomiting Priority: Secondary Status: Resolved Qualifiers: Vomiting type: cyclical vomiting Vomiting Intractability: unspecified Qualified Code(s): G43.A0 - Cyclical vomiting, not intractable (8) Sepsis Priority: Secondary Status: Resolved Qualifiers: Sepsis type: sepsis due to unspecified organism Qualified Code(s): A41.9 - Sepsis, unspecified organism Hospital course: Mr. Rodriguez is a 37 year old male past medical history of asthma and GERD. Patient admitted due to cavitary lung lesion s/p bronch. Sputum grew Serratia marcescens and group C Streptococcus. ID recommended to Start levofloxacin 500mg/PO daily Duration of treatment [address] chest in 3 weeks, Follow-up with me in clinic 06/08/2018. Pulm recommended: to continue systemic glucocorticoids he will need a prolonged taper starting with 40 mg of prednisone to decreased by about 10 mg weekly until follow-up in pulmonary clinic. Patient is hemodynamically stable to be discharged. - Time Spent with Patient Total time spent providing and/or coordinating discharge services: Greater than 30 minutes (40) - Discharge Medications Prescriptions: levoFLOXacin [Levofloxacin] 500 mg PO DAILY 28 Days #28 tablet PredniSONE [Deltasone] 30 mg PO DAILY 7 Days #7 tablet predniSONE [Prednisone] 20 mg PO DAILY 7 Days #7 tab.ds.pk predniSONE [PredniSONE] 40 mg PO DAILY 7 Days #7 tablet predniSONE [PredniSONE] 10 mg PO DAILY 7 Days #7 tablet Home Medications: Albuterol Sulfate [Albuterol Inhaler] 2 puff PO Q4-6H PRN 09/08/16 [History] Loratadine [Allergy Relief] 10 mg PO DAILY 09/08/16 [History] Omeprazole [PriLOSEC] 20 mg PO DAILY 09/08/16 [History] Albuterol Neb [Proventil Neb] 2.5 mg IH Q4H PRN 12/11/16 [History] Fluticasone/Salmeterol [Airduo Respiclick 113-14 Mcg] 1 puff IH BID 05/13/18 [History] PredniSONE [Deltasone] 30 mg PO DAILY 7 Days #7 tablet 05/17/18 [Rx] levoFLOXacin [Levofloxacin] 500 mg PO DAILY 28 Days #28 tablet 05/17/18 [Rx] predniSONE [PredniSONE] 10 mg PO DAILY 7 Days #7 tablet 05/17/18 [Rx] predniSONE [PredniSONE] 40 mg PO DAILY 7 Days #7 tablet 05/17/18 [Rx] predniSONE [Prednisone] 20 mg PO DAILY 7 Days #7 tab.ds.pk 05/17/18 [Rx] Allergies/Adverse Reactions: Allergy/AdvReac Type Severity Reaction Status Date / Time bismuth subsalicylate Allergy Hives Verified 05/13/18 15:38 [From Pepto-Bismol] Date of admission: 05/14/18 09:52 Primary care physician: Rosa Gifford Consults: 05/13/18 10:34 Consult to Pulmonology [CONS] Stat Consulting Provider: [facility] Reason for Consult: Cavitary lesion Call Completed: Yes 05/15/18 11:42 Consult to Infectious Diseases [CONS] Routine Consulting Provider: Infectious Disease [place] Reason for Consult: cavitary lung lesion Call Completed: No - Constitutional Vitals: Temp Pulse Resp BP Pulse Ox 98.6 F 69 17 141/96 97 05/17/18 15:44 05/17/18 15:44 05/17/18 16:09 05/17/18 15:44 05/17/18 16:09 Exam: Vitals: reviewed General: Alert and oriented x4. No acute distress Cardiovascular: RRR, normal S1 & S2, no rubs, murmurs or gallops. Lungs: CTA b/l, no wheezes or crackles. Abdomen: Soft, non-tender, no rigidity. NABS in all 4 quadrants Extremities: No edema Neurological: Normal cognition. Rest of the physical exam is non contributory - Patient Status Disposition: Home, Self-Care Condition: Good Functional capacity at discharge: independent ambulation Overall status at discharge: patient is progressing back to baseline - Discharge Instructions Instructions: Sulfamethoxazole/Trimethoprim (By mouth), Prednisone (By mouth), Amoxicillin/Clavulanate Potassium (By mouth), Flexible Bronchoscopy (DC), Flexible Bronchoscopy (GEN) Follow Up With: Juli Eagle MD [Partnered Physician] - (Set web request ) Rosa Gifford MD [Primary Care Provider] - 05/23/18 10:30 am April Burton MD [Partnered Physician] - (Sent web request to Dr Burton office for patient apt) Alma Okeefe MD [Partnered Physician] - (sent web request Dr. Naila Okeefe office will contact patient) - Diet and Activity Activity: resume usual activities as tolerated Diet: low salt diet - VTE Documentation of Mechanical Device: Intermittent pneumatic compression device
[2018-05-17] MEDS ORDERED: levoFLOXacin 500 MG TABLET PO SCH (17:15)
[2018-05-17] MEDS ORDERED: Aminoglycoside Consult 1 EACH MC ONE (18:17)
--- NOTE | 2018-05-17 20:27 | Electrocardiograph Report ---
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
[2018-05-17] MEDS ORDERED: Sulfamethoxazole/Trimeth DS 1 EACH TABLET PO SCH (21:00)
[2018-05-17 21:37] LABS: Influenza A PCR Body Fluid NOT DETECTED; Influenza B PCR Body Fluid NOT DETECTED; RVP Body Fluid Source BAL LUL
[2018-05-18 00:21] LABS: HSV Source BAL LUL
[2018-05-18] MEDS ORDERED: predniSONE 20 MG TABLET PO SCH (09:00)
[2018-05-18 15:11] LABS: Myeloperoxidase Ab 0 AU/mL (0-19); Serine Protease-3 Antibody 15 AU/mL (0-19)
[2018-05-18 15:34] LABS: RSV PCR Body Fluid NOT DETECTED
[2018-05-18 15:37] LABS: RSV PCR Body Fluid NOT DETECTED
== END 2018-05-17 18:18 | disposition home or self-care (01) | DRG 720 ==
LOC: EMEROOARM 07:19 → INTOOBSV 14:11 → 2NENU 14:11 → SUATTDRO 05-14 09:52
PROVIDERS: ADMIT Internal Medicine; ATTEND Internal Medicine
PROC: ENDOBRF (2018-05-14 09:10)

== ENCOUNTER 2020-05-16 13:44 | Inpatient (IN) ==
[2020-05-16] MEDS ORDERED: Isovue-370 500 ML BOTTLE IVP ONE (14:00)
[2020-05-16] MEDS ORDERED: Ipratropium/Albuterol Neb 3 ML IH ONE (14:00)
[2020-05-16] MEDS ORDERED: Dexamethasone 4 MG/ML VIAL IVP ONE (14:00)
[2020-05-16] MEDS ORDERED: cefTRIAXone 1,000 MG in Water for inj. (sterile) 10 ML IVP ONE (14:01)
[2020-05-16] MEDS ORDERED: Azithromycin 500 MG in 0.9 % Sodium Chloride 250 ML IVPB ONE (14:01)
[2020-05-16 14:26] LABS: Basophils % 0.7 %; Eosinophils % 0.7 %; Hematocrit 47.8 % (37.5-50.1); Hemoglobin 16.1 g/dL (12.9-16.9); Immature Granulocytes % 0.2 % (0-4); Lymphocytes # 0.8 K/mcL (0.6-4.6); Lymphocytes % 18.4 %; Mean Corpuscular HGB Conc 33.7 g/dL (31.6-35.5); Mean Corpuscular Hemoglobin 30.7 pg (28.0-33.3); Mean Platelet Volume 10.7 fL (9.4-12.4); Monocytes # 0.3 K/mcL (0.0-1.3); Monocytes % 7.8 %; Neutrophils # 3.1 K/mcL (1.6-8.9); Platelet Count 188 K/mcL (140-400); Red Blood Count 5.25 M/mcL (4.19-5.50); Red Cell Distribution Width 12.1 % (11.5-14.5); Segmented Neutrophils % 72.2 %; White Blood Count 4.2 K/mcL (4.3-11.1)
[2020-05-16 14:38] LABS: Prothrombin Time 11.9 Seconds (9.4-12.1)
[2020-05-16 14:40] LABS: Activated Partial Thrombo Time 27.8 Seconds (26.0-36.0)
[2020-05-16 14:46] LABS: Alanine Aminotransferase 50 Units/L (7-52); Albumin 4.2 g/dL (3.5-5.7); Albumin/Globulin Ratio 1.4 (1.1-2.2); Alkaline Phosphatase 66 Units/L (34-104); Aspartate Amino Transferase 25 Units/L (13-39); BUN/Creatinine Ratio 18 (6-26); Bilirubin,Direct 0.2 mg/dL (0.0-0.2); Bilirubin,Indirect 0.7 mg/dL (0.0-1.0); Bilirubin,Total 0.9 mg/dL (0.3-1.0); Blood Urea Nitrogen 19 mg/dL (6-20); C-Reactive Protein 26 mg/L (Less than 10); Calcium 9.5 mg/dL (8.6-10.3); Carbon Dioxide 24 mEq/L (23-29); Chloride 101 mEq/L (98-107); Glucose 112 mg/dL (70-105); Lactate Dehydrogenase 143 Units/L (140-271); Magnesium 1.8 mg/dL (1.6-2.6); Osmolality,Calculated 283 (280-300); Phosphorous 2.7 mg/dL (2.7-4.5); Potassium 3.4 mEq/L (3.5-5.1); Sodium 135 mEq/L (136-145); Total Protein 7.2 g/dL (6.4-8.9); Troponin I < 0.03 ng/mL (< 0.04); eGFR For African Americans > 60 (> 60); eGFR For Non-African Americans > 60 (> 60)
[2020-05-16 15:04] LABS: Ferritin 104 ng/mL (20-250)
[2020-05-16] MEDS ORDERED: Naloxone 0.4 MG/ML INJ IVP PRN (17:23)
[2020-05-16] MEDS ORDERED: Acetaminophen 325 MG TABLET PO PRN (17:23)
[2020-05-16] MEDS ORDERED: Ondansetron 4 MG/2 ML VIAL IVP PRN (17:23)
[2020-05-16] MEDS ORDERED: D5% in Water 1,000 ML IVC PRN (18:58)
[2020-05-16] MEDS ORDERED: *HR* Dextrose 50 % in Water (Vial) 50 ML VIAL IVP PRN (18:58)
[2020-05-16] MEDS ORDERED: Dextrose Gel 15 GM/37.5 ML TUBE PO PRN ×2 (18:58)
[2020-05-16] MEDS: Furosemide 40 MG/4 ML VIAL IVP SCH (19:46)
[2020-05-16] MEDS: Loratadine 10 MG TABLET PO SCH (19:46)
[2020-05-16] MEDS: Ipratropium 1 PUFF INHALER IH SCH ×2 (19:49→23:53)
[2020-05-16] MEDS: Insulin LISPRO 300 UNITS/3 ML VIAL SUBQ SCH (19:55)
[2020-05-17 03:39] LABS: Immature Granulocytes % 0.3 % (0-4); Lymphocytes # 0.3 K/mcL (0.6-4.6); Lymphocytes % 9.8 %; Mean Corpuscular HGB Conc 33.3 g/dL (31.6-35.5); Mean Corpuscular Hemoglobin 29.8 pg (28.0-33.3); Mean Corpuscular Volume 89.4 fL (83.0-100.0); Monocytes # 0.3 K/mcL (0.0-1.3); Monocytes % 7.8 %; Neutrophils # 2.8 K/mcL (1.6-8.9); Platelet Count 210 K/mcL (140-400); Red Blood Count 5.37 M/mcL (4.19-5.50); Red Cell Distribution Width 12.2 % (11.5-14.5); Segmented Neutrophils % 82.1 %; White Blood Count 3.5 K/mcL (4.3-11.1)
[2020-05-17 03:48] LABS: Fibrinogen 424 mg/dL (169-393)
[2020-05-17] MEDS: Ipratropium 1 PUFF INHALER IH SCH ×5 (03:50→21:05)
[2020-05-17 03:51] LABS: D-Dimer 348 ng/mLFEU (0-500)
[2020-05-17 04:05] LABS: BUN/Creatinine Ratio 23 (6-26); Blood Urea Nitrogen 24 mg/dL (6-20); Calcium 9.7 mg/dL (8.6-10.3); Carbon Dioxide 24 mEq/L (23-29); Chloride 104 mEq/L (98-107); Glucose 196 mg/dL (70-105); Osmolality,Calculated 295 (280-300); Potassium 4.5 mEq/L (3.5-5.1); Sodium 138 mEq/L (136-145); eGFR For African Americans > 60 (> 60); eGFR For Non-African Americans > 60 (> 60)
[2020-05-17 04:21] LABS: Thyroid Stimulating Hormone 0.312 mcIU/mL (0.340-5.600)
[2020-05-17] MEDS: *HR* Enoxaparin 40 MG/0.4 ML SYRINGE SQ SCH (05:46)
[2020-05-17] MEDS: Dexamethasone 4 MG/ML VIAL IVP SCH (07:57)
[2020-05-17] MEDS: Furosemide 40 MG/4 ML VIAL IVP SCH ×2 (07:58→22:38)
[2020-05-17] MEDS: Metoprolol XL (24 HR) Succ 25 MG TAB.ER.24H PO SCH (07:58)
[2020-05-17] MEDS: Insulin LISPRO 300 UNITS/3 ML VIAL SUBQ SCH ×4 (08:02→22:39)
[2020-05-17 10:03] LABS: Estimated Average Glucose 134 mg/dl; Hemoglobin A1C 6.3 %
[2020-05-17 11:13] LABS: Triiodothyronine (T3) Free 3.51 pg/mL (2.50-3.90)
[2020-05-17] MEDS ORDERED: Remdesivir 200 MG in 0.9 % Sodium Chloride 100 ML IVPB ONE (18:00)
[2020-05-17] MEDS: Loratadine 10 MG TABLET PO SCH (22:38)
[2020-05-18] MEDS: Ipratropium 1 PUFF INHALER IH SCH ×7 (01:02→23:45)
[2020-05-18 01:09] LABS: Basophils % 0.1 %; Hematocrit 47.2 % (37.5-50.1); Hemoglobin 15.4 g/dL (12.9-16.9); Immature Granulocytes % 0.4 % (0-4); Lymphocytes # 1.1 K/mcL (0.6-4.6); Lymphocytes % 9.4 %; Mean Corpuscular HGB Conc 32.6 g/dL (31.6-35.5); Mean Corpuscular Volume 88.9 fL (83.0-100.0); Mean Platelet Volume 10.3 fL (9.4-12.4); Monocytes # 1.1 K/mcL (0.0-1.3); Monocytes % 9.8 %; Platelet Count 223 K/mcL (140-400); Red Blood Count 5.31 M/mcL (4.19-5.50); Red Cell Distribution Width 12.3 % (11.5-14.5); Segmented Neutrophils % 80.3 %
[2020-05-18 01:10] LABS: White Blood Count 11.2 K/mcL (4.3-11.1)
[2020-05-18 01:12] LABS: D-Dimer 426 ng/mLFEU (0-500); Fibrinogen 402 mg/dL (169-393)
[2020-05-18 01:25] LABS: Albumin 4.5 g/dL (3.5-5.7); Albumin/Globulin Ratio 1.4 (1.1-2.2); Bilirubin,Direct 0.1 mg/dL (0.0-0.2); Bilirubin,Indirect 0.2 mg/dL (0.0-1.0); Bilirubin,Total 0.3 mg/dL (0.3-1.0); Globulin 3.2 g/dL (2.4-3.5); Total Protein 7.7 g/dL (6.4-8.9)
[2020-05-18 01:28] LABS: BUN/Creatinine Ratio 24 (6-26); Blood Urea Nitrogen 25 mg/dL (6-20); Calcium 9.5 mg/dL (8.6-10.3); Carbon Dioxide 26 mEq/L (23-29); Chloride 99 mEq/L (98-107); Glucose 204 mg/dL (70-105); Osmolality,Calculated 292 (280-300); Potassium 4.1 mEq/L (3.5-5.1); Sodium 136 mEq/L (136-145); eGFR For African Americans > 60 (> 60); eGFR For Non-African Americans > 60 (> 60)
[2020-05-18] MEDS: *HR* Enoxaparin 40 MG/0.4 ML SYRINGE SQ SCH (06:18)
[2020-05-18] MEDS: Insulin LISPRO 300 UNITS/3 ML VIAL SUBQ SCH ×4 (07:43→19:49)
[2020-05-18] MEDS: Furosemide 40 MG/4 ML VIAL IVP SCH ×2 (08:52→19:48)
[2020-05-18] MEDS: Metoprolol XL (24 HR) Succ 25 MG TAB.ER.24H PO SCH (08:52)
[2020-05-18] MEDS: Dexamethasone 4 MG/ML VIAL IVP SCH (08:52)
[2020-05-18 16:57] LABS: Angiotensin Converting Enzyme 57 U/L (9-67)
[2020-05-18] MEDS: Remdesivir 100 MG in 0.9 % Sodium Chloride 100 ML IVPB SCH (18:08)
[2020-05-18] MEDS: Loratadine 10 MG TABLET PO SCH (19:48)
[2020-05-19 01:21] LABS: Basophils % 0.1 %; Hematocrit 47.8 % (37.5-50.1); Immature Granulocytes % 0.5 % (0-4); Lymphocytes # 1.2 K/mcL (0.6-4.6); Lymphocytes % 14.1 %; Mean Corpuscular HGB Conc 33.5 g/dL (31.6-35.5); Mean Corpuscular Hemoglobin 30.1 pg (28.0-33.3); Mean Platelet Volume 10.4 fL (9.4-12.4); Monocytes # 0.8 K/mcL (0.0-1.3); Monocytes % 9.7 %; Neutrophils # 6.2 K/mcL (1.6-8.9); Platelet Count 235 K/mcL (140-400); Red Blood Count 5.31 M/mcL (4.19-5.50); Red Cell Distribution Width 12.1 % (11.5-14.5); Segmented Neutrophils % 75.6 %; White Blood Count 8.2 K/mcL (4.3-11.1)
[2020-05-19 01:25] LABS: Albumin 4.4 g/dL (3.5-5.7); Albumin/Globulin Ratio 1.3 (1.1-2.2); BUN/Creatinine Ratio 23 (6-26); Bilirubin,Direct 0.1 mg/dL (0.0-0.2); Bilirubin,Indirect 0.3 mg/dL (0.0-1.0); Bilirubin,Total 0.4 mg/dL (0.3-1.0); Blood Urea Nitrogen 26 mg/dL (6-20); Calcium 9.6 mg/dL (8.6-10.3); Carbon Dioxide 27 mEq/L (23-29); Chloride 95 mEq/L (98-107); Globulin 3.3 g/dL (2.4-3.5); Glucose 306 mg/dL (70-105); Magnesium 1.9 mg/dL (1.6-2.6); Osmolality,Calculated 292 (280-300); Potassium 4.1 mEq/L (3.5-5.1); Sodium 133 mEq/L (136-145); Total Protein 7.7 g/dL (6.4-8.9); eGFR For African Americans > 60 (> 60); eGFR For Non-African Americans > 60 (> 60)
[2020-05-19] MEDS: Ipratropium 1 PUFF INHALER IH SCH ×6 (04:17→23:42)
[2020-05-19] MEDS: *HR* Enoxaparin 40 MG/0.4 ML SYRINGE SQ SCH (06:10)
[2020-05-19 08:19] LABS: ANA IgG by ELISA DETECTED (None Detected)
[2020-05-19] MEDS: Dexamethasone 4 MG/ML VIAL IVP SCH (09:05)
[2020-05-19] MEDS: Metoprolol XL (24 HR) Succ 25 MG TAB.ER.24H PO SCH (09:05)
[2020-05-19] MEDS: Insulin LISPRO 300 UNITS/3 ML VIAL SUBQ SCH ×4 (09:06→20:40)
[2020-05-19 11:52] LABS: Serine Protease-3 Antibody 31 AU/mL (0-19)
[2020-05-19] MEDS: Furosemide 40 MG/4 ML VIAL IVP SCH (20:25)
[2020-05-19] MEDS: Loratadine 10 MG TABLET PO SCH (20:26)
[2020-05-19] MEDS: Remdesivir 100 MG in 0.9 % Sodium Chloride 100 ML IVPB SCH (20:27)
[2020-05-20] MEDS: Ipratropium 1 PUFF INHALER IH SCH ×6 (03:58→23:25)
[2020-05-20 04:54] LABS: Basophils % 0.3 %; Eosinophils % 0.4 %; Hematocrit 47.1 % (37.5-50.1); Hemoglobin 15.7 g/dL (12.9-16.9); Lymphocytes # 1.6 K/mcL (0.6-4.6); Mean Corpuscular HGB Conc 33.3 g/dL (31.6-35.5); Mean Corpuscular Hemoglobin 29.7 pg (28.0-33.3); Mean Corpuscular Volume 89.2 fL (83.0-100.0); Mean Platelet Volume 10.5 fL (9.4-12.4); Monocytes # 1.2 K/mcL (0.0-1.3); Monocytes % 11.9 %; Neutrophils # 6.9 K/mcL (1.6-8.9); Platelet Count 238 K/mcL (140-400); Red Blood Count 5.28 M/mcL (4.19-5.50); Red Cell Distribution Width 11.9 % (11.5-14.5); Segmented Neutrophils % 70.4 %; White Blood Count 9.8 K/mcL (4.3-11.1)
[2020-05-20 05:11] LABS: Albumin 4.2 g/dL (3.5-5.7); Albumin/Globulin Ratio 1.4 (1.1-2.2); BUN/Creatinine Ratio 32 (6-26); Bilirubin,Direct 0.1 mg/dL (0.0-0.2); Bilirubin,Indirect 0.3 mg/dL (0.0-1.0); Bilirubin,Total 0.4 mg/dL (0.3-1.0); Blood Urea Nitrogen 33 mg/dL (6-20); Calcium 9.3 mg/dL (8.6-10.3); Carbon Dioxide 26 mEq/L (23-29); Chloride 97 mEq/L (98-107); Globulin 3.1 g/dL (2.4-3.5); Glucose 216 mg/dL (70-105); Osmolality,Calculated 290 (280-300); Potassium 3.7 mEq/L (3.5-5.1); Sodium 133 mEq/L (136-145); Total Protein 7.3 g/dL (6.4-8.9); eGFR For African Americans > 60 (> 60); eGFR For Non-African Americans > 60 (> 60)
[2020-05-20] MEDS: *HR* Enoxaparin 40 MG/0.4 ML SYRINGE SQ SCH (09:03)
[2020-05-20] MEDS: Dexamethasone 4 MG/ML VIAL IVP SCH (09:03)
[2020-05-20] MEDS: Metoprolol XL (24 HR) Succ 25 MG TAB.ER.24H PO SCH (09:03)
[2020-05-20] MEDS: Furosemide 40 MG/4 ML VIAL IVP SCH ×2 (09:04→17:25)
[2020-05-20] MEDS: Insulin LISPRO 300 UNITS/3 ML VIAL SUBQ SCH ×3 (09:05→16:20)
[2020-05-20] MEDS: Insulin DETEMIR 100 UNIT/ML X5UNITS SUBQ SCH (09:23)
[2020-05-20 11:40] LABS: ANA HEp-2 IgG IFA <1:80 (<1:80)
[2020-05-20] MEDS: Remdesivir 100 MG in 0.9 % Sodium Chloride 100 ML IVPB SCH (17:20)
[2020-05-20] MEDS: Loratadine 10 MG TABLET PO SCH (19:38)
[2020-05-21] MEDS: Ipratropium 1 PUFF INHALER IH SCH ×5 (03:55→19:34)
[2020-05-21 06:14] LABS: Basophils % 0.4 %; Eosinophils % 0.3 %; Hematocrit 49.7 % (37.5-50.1); Immature Granulocytes % 1.5 % (0-4); Lymphocytes # 1.6 K/mcL (0.6-4.6); Lymphocytes % 16.1 %; Mean Corpuscular HGB Conc 34.2 g/dL (31.6-35.5); Mean Corpuscular Hemoglobin 30.4 pg (28.0-33.3); Mean Corpuscular Volume 88.9 fL (83.0-100.0); Mean Platelet Volume 10.5 fL (9.4-12.4); Monocytes # 1.2 K/mcL (0.0-1.3); Neutrophils # 7.1 K/mcL (1.6-8.9); Platelet Count 270 K/mcL (140-400); Red Blood Count 5.59 M/mcL (4.19-5.50); Red Cell Distribution Width 11.9 % (11.5-14.5); Segmented Neutrophils % 69.7 %; White Blood Count 10.2 K/mcL (4.3-11.1)
[2020-05-21 06:32] LABS: Alanine Aminotransferase 125 Units/L (7-52); Albumin 4.5 g/dL (3.5-5.7); Albumin/Globulin Ratio 1.5 (1.1-2.2); Alkaline Phosphatase 86 Units/L (34-104); Aspartate Amino Transferase 21 Units/L (13-39); BUN/Creatinine Ratio 31 (6-26); Bilirubin,Direct 0.1 mg/dL (0.0-0.2); Bilirubin,Indirect 0.3 mg/dL (0.0-1.0); Bilirubin,Total 0.4 mg/dL (0.3-1.0); Blood Urea Nitrogen 37 mg/dL (6-20); Calcium 9.7 mg/dL (8.6-10.3); Carbon Dioxide 27 mEq/L (23-29); Chloride 95 mEq/L (98-107); Globulin 3.1 g/dL (2.4-3.5); Glucose 238 mg/dL (70-105); Magnesium 2.2 mg/dL (1.6-2.6); Osmolality,Calculated 290 (280-300); Potassium 3.9 mEq/L (3.5-5.1); Sodium 132 mEq/L (136-145); Total Protein 7.6 g/dL (6.4-8.9); eGFR For African Americans > 60 (> 60); eGFR For Non-African Americans > 60 (> 60)
[2020-05-21] MEDS: *HR* Enoxaparin 40 MG/0.4 ML SYRINGE SQ SCH (06:36)
[2020-05-21] MEDS: Insulin DETEMIR 100 UNIT/ML X5UNITS SUBQ SCH (07:57)
[2020-05-21] MEDS: Dexamethasone 4 MG/ML VIAL IVP SCH (07:57)
[2020-05-21] MEDS: Metoprolol XL (24 HR) Succ 25 MG TAB.ER.24H PO SCH (07:57)
[2020-05-21] MEDS: Furosemide 40 MG/4 ML VIAL IVP SCH ×2 (07:58→18:01)
[2020-05-21] MEDS: Insulin LISPRO 300 UNITS/3 ML VIAL SUBQ SCH ×3 (07:58→16:34)
[2020-05-21 15:11] VITALS: BP 133/89
[2020-05-21] MEDS: Remdesivir 100 MG in 0.9 % Sodium Chloride 100 ML IVPB SCH (18:06)
== END 2020-05-21 19:30 | disposition home health service (06) | DRG 137 ==
LOC: 3BNU 13:44 → EMEROOARM 13:44 → SUATTDRO 17:25 → 3BNU 17:50
PROVIDERS: ADMIT Pharmacist; ATTEND Pharmacist